=== PATIENT | female | born 1995 | race African-American/Black ===

== ENCOUNTER 2020-05-16 14:41 | Outpatient (REF) | payer OTHER, SELFPAY | END 2020-05-16 14:42 | disposition home or self-care (01) | LOC: HO.HMGCLDS 14:41 | PROVIDERS: PCP Internal Medicine; Visit Provider Internal Medicine | DX: Z20.828 Contact with and (suspected) exposure to other viral communicable diseases (principal) | CPT/HCPCS: C9803; U0003 ==

== ENCOUNTER 2020-05-26 09:36 | Outpatient (REF) | payer OTHER, SELFPAY ==
[2020-05-26 11:08] LABS: MANUAL DIFF FLAG NO
[2020-05-26 11:12] LABS: Basophils Absolute Auto 0.1 X10*3/uL (0.0-0.2); Basophils Percent Auto 0.9 % (0-2); Eosinophils Absolute Auto 0.3 X10*3/uL (0.0-0.4); Eosinophils Percent Auto 4.7 % (0-4); Hematocrit 44.4 % (37-47); Hemoglobin 14.5 g/dl (12.0-16.0); Imm Gran Abs Auto 0.02 X10*3/uL (0.00-0.03); Imm Gran Pct Auto 0.3 % (0.0-0.4); Lymphocytes Absolute Auto 1.2 X10*3/uL (1.2-4.9); Mean Corpuscular HGB Conc 32.7 g/dl (31.0-35.0); Mean Corpuscular Hemoglobin 28.6 pg (27.0-33.0); Mean Corpuscular Volume 87.6 fL (80-98); Mean Platelet Volume 9.9 fL (9.4-12.3); Monocytes Absolute Auto 0.6 X10*3/uL (0.1-1.2); Neutrophils Absolute Auto 4.5 X10*3/uL (2.0-8.3); Neutrophils Percent Auto 67.1 % (45-73); Platelet Count 319 X10*3/uL (160-400); Red Blood Count 5.07 X10*6/uL (4.20-5.50); Red Cell Distribution Width 12.4 % (11.0-16.0); White Blood Count 6.8 X10*3/uL (4.8-10.8)
[2020-05-26 11:41] LABS: Alanine Aminotransferase 16 U/L (0-31); Anion Gap 14 (12-20); Aspartate Amino Transferase 12 U/L (5-31); Blood Urea Nitrogen 11 mg/dL (9-16); Calcium 9.3 mg/dL (8.4-10.2); Carbon Dioxide 26 mmol/L (22-29); Chloride 102 mmol/L (96-108); Cholesterol 156 mg/dL; Estimated Glomerular Filt Rate > 60; Glucose Fasting 77 mg/dL (60-99); HDL Cholesterol 54 mg/dL; LDL Cholesterol Calculated 83 mg/dl; Potassium 4.1 mmol/l (3.3-5.1); Sodium 138 mmol/L (135-145); Triglycerides 95 mg/dL
[2020-05-26 11:54] LABS: TSH reflex Free T4 0.76 mIU/mL (0.32-4.0)
== END 2020-05-26 09:37 | disposition home or self-care (01) ==
LOC: HO.HMGCLDS 09:36
PROVIDERS: PCP Internal Medicine; Visit Provider Internal Medicine
DX: Z00.00 Encounter for general adult medical examination without abnormal findings (principal); R42 Dizziness and giddiness; I10 Essential (primary) hypertension
CPT/HCPCS: 36415; 80048; 80061; 84443; 84450; 84460; 85025

== ENCOUNTER → 2020-12-19 10:58 | Outpatient (BNVA) | payer OTHER, SELFPAY | PROVIDERS: PCP Internal Medicine; Referring Provider Internal Medicine; Visit Provider Advanced Practice Midwife ==

== ENCOUNTER → 2021-01-16 09:59 | Outpatient (BNVA) | payer OTHER, SELFPAY | PROVIDERS: Visit Provider Advanced Practice Midwife | DX: Z30.432 Encounter for removal of intrauterine contraceptive device (principal); Z30.013 Encounter for initial prescription of injectable contraceptive | CPT/HCPCS: 11982; 96372 ==

== ENCOUNTER → 2021-02-13 10:27 | Outpatient (BNVA) | payer OTHER, SELFPAY | PROVIDERS: Visit Provider Advanced Practice Midwife ==

== ENCOUNTER → 2021-04-10 11:02 | Outpatient (BNVA) | payer OTHER, SELFPAY | PROVIDERS: PCP Internal Medicine; Visit Provider Advanced Practice Midwife | DX: Z30.42 Encounter for surveillance of injectable contraceptive (principal) | CPT/HCPCS: 96372; 99211 ==

== ENCOUNTER 2021-06-12 10:13 | Outpatient (REF) | payer OTHER, SELFPAY ==
[2021-06-12 12:32] LABS: Alanine Aminotransferase 17 U/L (0-31); Anion Gap 12 (12-20); Aspartate Amino Transferase 10 U/L (5-31); Blood Urea Nitrogen 10 mg/dL (9-16); Calcium 9.7 mg/dL (8.4-10.2); Carbon Dioxide 24 mmol/L (22-29); Chloride 106 mmol/L (96-108); Cholesterol 160 mg/dL; Estimated Glomerular Filt Rate > 60; Glucose Fasting 91 mg/dL (60-99); HDL Cholesterol 57 mg/dL; LDL Cholesterol Calculated 90 mg/dl; Sodium 138 mmol/L (135-145); Triglycerides 67 mg/dL
[2021-06-12 12:37] LABS: Vitamin D 25-OH Total 44.2 ng/mL (>30)
== END 2021-06-12 10:14 | disposition home or self-care (01) ==
LOC: HO.HMGCLDS 10:13
PROVIDERS: PCP Internal Medicine; Visit Provider Internal Medicine
DX: Z30.42 Encounter for surveillance of injectable contraceptive (principal); J45.20 Mild intermittent asthma, uncomplicated
CPT/HCPCS: 36415; 80048; 80061; 82306; 84450; 84460

== ENCOUNTER → 2021-07-10 11:43 | Outpatient (BNVA) | payer OTHER, SELFPAY | PROVIDERS: PCP Internal Medicine; Visit Provider Advanced Practice Midwife ==

== ENCOUNTER → 2021-11-06 09:50 | Outpatient (BNVA) | payer OTHER, SELFPAY | PROVIDERS: PCP Internal Medicine; Visit Provider Advanced Practice Midwife | DX: Z30.42 Encounter for surveillance of injectable contraceptive (principal); Z30.09 Encounter for other general counseling and advice on contraception | CPT/HCPCS: 96372; 99212 ==

== ENCOUNTER → 2022-01-29 11:03 | Outpatient (BNVA) | payer OTHER, SELFPAY | PROVIDERS: PCP Internal Medicine; Visit Provider Advanced Practice Midwife | DX: Z30.42 Encounter for surveillance of injectable contraceptive (principal) | CPT/HCPCS: 96372; 99211 ==

== ENCOUNTER 2022-02-19 10:56 | Outpatient (REF) | payer OTHER, SELFPAY | END 2022-02-19 10:57 | disposition home or self-care (01) | LOC: HO.LNP 10:56 | PROVIDERS: Visit Provider Advanced Practice Midwife | DX: Z01.419 Encounter for gynecological examination (general) (routine) without abnormal findings (principal) | CPT/HCPCS: 88142 ==

== ENCOUNTER 2022-04-23 10:36 | Outpatient (REF) | payer OTHER, SELFPAY ==
[2022-04-23 14:06] LABS: CT PCR NOT DETECTED (Not Detect.); NG PCR NOT DETECTED (Not Detect.)
== END 2022-04-23 10:37 | disposition home or self-care (01) ==
LOC: HO.LAB 10:36
PROVIDERS: PCP Internal Medicine; Visit Provider Advanced Practice Midwife
DX: Z11.3 Encounter for screening for infections with a predominantly sexual mode of transmission (principal); Z20.2 Contact with and (suspected) exposure to infections with a predominantly sexual mode of transmission
CPT/HCPCS: 87491; 87591; 96372; 99211

== ENCOUNTER → 2022-07-09 11:03 | Outpatient (BNVA) | payer OTHER, SELFPAY | PROVIDERS: PCP Internal Medicine; Visit Provider Advanced Practice Midwife | DX: Z30.42 Encounter for surveillance of injectable contraceptive (principal) | CPT/HCPCS: 96372; 99211 ==

== ENCOUNTER 2022-08-20 09:21 | Outpatient (REF) | payer OTHER, SELFPAY ==
[2022-08-20 12:56] LABS: Anion Gap 16 (12-20); Blood Urea Nitrogen 11 mg/dL (9-16); Calcium 9.3 mg/dL (8.4-10.2); Carbon Dioxide 23 mmol/L (22-29); Chloride 105 mmol/L (96-108); Cholesterol 165 mg/dL; Estimated Glomerular Filt Rate > 60; Glucose Fasting 86 mg/dL (60-99); HDL Cholesterol 58 mg/dL; LDL Cholesterol Calculated 93 mg/dl; Sodium 140 mmol/L (135-145); Triglycerides 74 mg/dL
[2022-08-20 13:01] LABS: Vitamin D 25-OH Total 27.9 ng/mL (>30)
== END 2022-08-20 09:22 | disposition home or self-care (01) ==
LOC: HO.HMGCLDS 09:21
PROVIDERS: PCP Internal Medicine; Visit Provider Internal Medicine
DX: Z00.01 Encounter for general adult medical examination with abnormal findings (principal); J45.20 Mild intermittent asthma, uncomplicated; R12 Heartburn; Z91.09 Other allergy status, other than to drugs and biological substances
CPT/HCPCS: 36415; 80048; 80061; 82306

== ENCOUNTER → 2022-10-01 10:09 | Outpatient (BNVA) | payer OTHER, SELFPAY | PROVIDERS: PCP Internal Medicine; Visit Provider Advanced Practice Midwife | DX: Z30.42 Encounter for surveillance of injectable contraceptive (principal) | CPT/HCPCS: 96372; 99211 ==

== ENCOUNTER 2022-12-24 11:21 | Outpatient (AMB) | payer OTHER, SELFPAY ==
[2022-12-24 11:36] VITALS: BMI 23.9
--- NOTE | 2022-12-24 11:36 | AM.OFFVISNUR ---
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 No c/o. Pt tolerated well. Office Procedures Depo Questionnaire If YES to any of the following questions, please consult a provider. Date of last injection: 10/01/22 Date of last gynecology exam: 02/19/22 Menstrual pattern since last injection has been: Not Applicable Irregular bleeding?: No Breast lumps or other breast changes?: No Changes in weight or appetite?: No Depression or changes in mood?: No Abnormal hair growth or loss?: No Skin problems (rash, acne, discoloration)?: No Pain at the injection site?: No Headaches?: No Nervousness?: No Abdominal pain or cramping?: No Dizziness or nausea?: No Fatigue or weakness?: No Decrease in sexual drive?: No Chest pain or shortness of breath?: No Swelling in arms or legs?: No Form completed by?: Emelia Schwartz RN Office Meds Depo-Provera Performing Provider: Lidia Brice CNM Administered by: Emelia Schwartz on 12/24/22 11:38 Dose Route Admin Location Lot Number Expiration Date NDC Envelope Stuffer 150 mg IM left deltoid [id number] 03/02/25 66656-013-41 [facility] Coding Level of Care Code Established Pt Est Pt Level 1 (37828) Patient Type Established History Problem Focused Medical Decision Making Straight Forward Diagnoses Time Spent (min) 10 Assessment & Plan Assessment & Plan Orders: Orders AMB Medroxyprogesterone Injection Patient Supplied Today Z30.42 - Encounter for surveillance of injectable contraceptive
== END 2022-12-24 12:46 | disposition home or self-care (01) ==
LOC: HO.HWS 11:21
PROVIDERS: PCP Internal Medicine; Visit Provider Advanced Practice Midwife
DX: Z30.42 Encounter for surveillance of injectable contraceptive (principal)

== ENCOUNTER → 2022-12-24 11:21 | Outpatient (BNVA) | payer OTHER, SELFPAY | PROVIDERS: PCP Internal Medicine; Visit Provider Advanced Practice Midwife | DX: Z30.42 Encounter for surveillance of injectable contraceptive (principal) | CPT/HCPCS: 96372; 99211; J1050 ==

== ENCOUNTER 2023-03-18 12:46 | Outpatient (AMB) | payer OTHER, SELFPAY ==
[2023-03-18 13:05] VITALS: BMI 25.8
--- NOTE | 2023-03-18 13:05 | AM.OFFVISNUR ---
Intake Vital Signs 03/18/23 13:05 Height 5 ft 6 in Weight 72.575 kg BMI 25.8 Intake Visit Reasons: DEPO Allergies No Known Allergies Allergy (Verified 08/20/22 08:48) Nursing Note Dipti is here today for her Depo-Provera shot. She denies any problems or concerns. Follow up for AG 04/23/23 and Depo-Provera in 12 weeks. Office Procedures Depo Questionnaire If YES to any of the following questions, please consult a provider. Date of last injection: 12/24/22 Date of last gynecology exam: 02/19/22 Menstrual pattern since last injection has been: Not Applicable Irregular bleeding?: Not Applicable Breast lumps or other breast changes?: No Changes in weight or appetite?: No Depression or changes in mood?: No Abnormal hair growth or loss?: No Skin problems (rash, acne, discoloration)?: No Pain at the injection site?: No Headaches?: No Nervousness?: No Abdominal pain or cramping?: No Dizziness or nausea?: No Fatigue or weakness?: No Decrease in sexual drive?: Not Applicable Chest pain or shortness of breath?: No Swelling in arms or legs?: No Form completed by?: Harinder becker LPN Depmindi Questionnaire If YES to any of the following questions, please consult a provider. Date of last injection: 12/24/22 Date of last gynecology exam: 02/19/22 Menstrual pattern since last injection has been: Not Applicable Irregular bleeding?: No Breast lumps or other breast changes?: No Changes in weight or appetite?: No Depression or changes in mood?: No Abnormal hair growth or loss?: No Skin problems (rash, acne, discoloration)?: No Pain at the injection site?: No Headaches?: No Nervousness?: No Abdominal pain or cramping?: No Dizziness or nausea?: No Fatigue or weakness?: No Decrease in sexual drive?: No Chest pain or shortness of breath?: No Swelling in arms or legs?: No Any other problems or concerns?: none voiced Form completed by?: Harinder Becker LPN Office Meds Depo-Provera 150 mg/mL intramuscular syringe Performing Provider: Lidia Brice CNM Performing Location: [facility] Administered by: Alejandra Becker LPN on 03/18/23 13:13 Dose Route Admin Location Dispensed Lot Number Expiration Date NDC [facility] Of Pediatric Urology 150 mg IM Left deltoid 1 mL [id number] 03/02/25 01450-865-70 [facility] Coding Level of Care Code Established Pt Est Pt Level 1 (24527) Patient Type Established History Problem Focused Exam Problem Focused Medical Decision Making Straight Forward Time Spent (min) 20 Assessment & Plan Assessment & Plan Orders: Orders AMB Medroxyprogesterone Injection Patient Supplied Today Z30.42 - Encounter for surveillance of injectable contraceptive
== END 2023-03-18 13:10 | disposition home or self-care (01) ==
LOC: HO.HWS 12:46
PROVIDERS: PCP Internal Medicine; Visit Provider Advanced Practice Midwife
DX: Z30.42 Encounter for surveillance of injectable contraceptive (principal)

== ENCOUNTER → 2023-03-18 12:46 | Outpatient (BNVA) | payer OTHER, SELFPAY | PROVIDERS: PCP Internal Medicine; Visit Provider Advanced Practice Midwife | DX: Z30.42 Encounter for surveillance of injectable contraceptive (principal) | CPT/HCPCS: 96372; 99211; J1050 ==

== ENCOUNTER 2023-06-17 11:05 | Outpatient (AMB) | payer OTHER, SELFPAY ==
[2023-06-17 11:16] VITALS: BMI 27.6
--- NOTE | 2023-06-17 11:16 | AM.OFFVISNUR ---
Intake Vital Signs 06/17/23 11:16 Height 5 ft 6 in Weight 77.564 kg BMI 27.6 Intake Visit Reasons: DEPO Allergies No Known Allergies Allergy (Verified 08/20/22 08:48) Nursing Note Dipti is here today with her caregiver. Pt has no complaints. Follow up in 12 wks for next inj, and pt is scheduled in October for her AG. Office Procedures Depo Questionnaire If YES to any of the following questions, please consult a provider. Date of last injection: 03/18/23 Date of last gynecology exam: 02/19/22 Menstrual pattern since last injection has been: Not Applicable Irregular bleeding?: No Breast lumps or other breast changes?: No Changes in weight or appetite?: No Depression or changes in mood?: No Abnormal hair growth or loss?: No Skin problems (rash, acne, discoloration)?: No Pain at the injection site?: No Headaches?: No Nervousness?: No Abdominal pain or cramping?: No Dizziness or nausea?: No Fatigue or weakness?: No Decrease in sexual drive?: No Chest pain or shortness of breath?: No Swelling in arms or legs?: No Form completed by?: Harinder Gregorio LPN Office Meds Depo-Provera 150 mg/mL intramuscular syringe Performing Provider: Lidia Brice CNM Performing Location: [facility] Documented (not given) by: Alejandra Gregorio LPN on 06/17/23 11:18 Dose Route Admin Location Dispensed Lot Number Expiration Date [facility] 150 mg IM mL Coding Level of Care Code Established Pt Est Pt Level 1 (80879) Patient Type Established History Problem Focused Exam Problem Focused Medical Decision Making Straight Forward Time Spent (min) 15 Assessment & Plan Assessment & Plan Orders: Orders AMB Medroxyprogesterone Injection Patient Supplied Today Z30.42 - Encounter for surveillance of injectable contraceptive Medications: New Depo-Provera (medroxyprogesterone) 150 mg IM ONCE 1 mL 0RF NS Z30.42 - Encounter for surveillance of injectable contraceptive
== END 2023-06-17 11:16 | disposition home or self-care (01) ==
LOC: HO.HWS 11:05
PROVIDERS: PCP Internal Medicine; Visit Provider Advanced Practice Midwife
DX: Z30.42 Encounter for surveillance of injectable contraceptive (principal)

== ENCOUNTER → 2023-06-17 11:05 | Outpatient (BNVA) | payer OTHER, SELFPAY | PROVIDERS: PCP Internal Medicine; Visit Provider Advanced Practice Midwife | DX: Z30.42 Encounter for surveillance of injectable contraceptive (principal) | CPT/HCPCS: 96372; 99211 ==

== ENCOUNTER 2023-08-29 10:20 | Outpatient (AMB) | payer OTHER, SELFPAY ==
--- NOTE | 2023-08-29 10:23 | A.OFFVIS_ITS ---
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 Present today with her housekeeper child care Neema whom she lives with. Doing well with no concerns. She wants a refill on her Depo and does not want her menses. She had previously tried the oral contraceptive pill and was unhappy because she did have her sign with the pill. She tries to eat healthy, lacks calcium, and stays active with some exercise. She has never been sexually active and has no desire to. She reports she has a boyfriend and has allowed him to kiss her hand only. She denies vaginal itching and irritation. Denies family history of breast, ovarian or colon cancer. Last pap smear, negative. She denies any contraindications to control such as: migraines with aura, history of DVT or pulmonary emboli, high blood pressure, liver disease, thrombolic disorders, Lupus, +LIN, breast cancer, or smoking. [facility] Medical History History of seizure disorder On depo medroxyprogesterone acetate for contraception Cognitive developmental delay Heartburn Environmental allergies Mild intermittent asthma in adult without complication Surgical History No pertinent past surgical history Family History Father No problems noted. Mother Diabetes mellitus HTN (hypertension) Substance use disorder Mental health disorder Maternal Aunt Substance use disorder Sister No problems noted. Maternal Grandmother Substance use disorder Social History Housing: House Housing Other:: Private home Alcohol intake: never Patient Tobacco Use Status: Never used Tobacco e-Cigarette/Vaping Use: Never Used service: No Current occupational status: employed Cognitive needs: No Hearing needs: No Vision needs: Yes Female Reproductive History Menstrual control method: progesterone injection (Depo 06/17/23) Total pregnancies: 0 Date of last pap smear: 02/19/22 (neg) Review of Systems Const All systems reviewed & are unremarkable except as noted in HPI and below Reports as per HPI Eyes Reports no additional complaints ENT Reports no additional complaints Card Reports no additional complaints Resp Reports no additional complaints GI Reports as per HPI and Reports no additional complaints Reports as per HPI Musc Reports no additional complaints Skin/Breast Reports as per HPI Neuro Reports no additional complaints Psych Reports no additional complaints Endo Reports no additional complaints Moncho/Lymph Reports no additional complaints Aller/Immun Reports no additional complaints Physical Exam Vital Signs: Last Vital Signs BP 136/70 08/29/23 10:24 BMI result Body Mass Index 27.3 Const General: cooperative, healthy appearing, no acute distress, well developed and alert Orientation/consciousness: patient oriented x3 HEENT Head: Yes normal to inspection Eyes General: appearance normal, both eyes and all related structures Neck Neck: Yes normal visual inspection Thyroid: Thyroid normal Chest Chest palpation & inspection: normal inspection of the chest and other (no puckering, dimpling, peau de orange, retraction, discharge, masses) Breast/axilla inspection: normal inspection of the breasts Breast/axilla palpation: normal palpation of the breasts Resp Effort & Inspection: normal respiratory effort GI Inspection: Yes normal to inspection Palpation (GI): Soft to palpation Rectal Exam - Female: deferred Other: Very tense with exam and difficult cooperating despite support from Neema and staff, and coaching to relax General: Yes bladder normal to palpation External Female Exam: normal external appearance and normal appearance of the urethra Speculum Exam - Vagina: normal appearance of the vagina, normal palpation and normal vaginal discharge Speculum Exam - Cervix: normal appearance of the cervix and normal palpation Bimanual exam- vagina & uterus: normal bimanual exam, normal palpation, uterine size normal, bladder normal to palpation, normal palpation and non-tender Bimanual Exam- Adnexa, other: no masses Skin General skin exam: no rashes or lesions noted Rashes: no rashes Neuro General: patient oriented x3 Cognition (Neuro): normal cognition Extrem General: Yes normal to inspection Psych Attitude: cooperative Thought process: Normal thought process present Assessment & Plan Assessment & Plan (1) Surveillance for Depo-Provera contraception: Code(s): Z30.42 - Encounter for surveillance of injectable contraceptive (2) Encounter for well woman exam with routine gynecological exam: Code(s): Z01.419 - Encounter for gynecological examination (general) (routine) without abnormal findings Plan Discussed: Current recommendations for pap smears per ASCCP guidelines. Breast awareness and periodic breast exams. Maintain a healthy lifestyle including a well balanced diet and routine exercise. Discussed the risk of Depo-Provera including bone density decreased, advised it is reversible but not to 100%. I do recommend her starting calcium and vitamin- D, and to do weight-bearing exercises regularly. She is unsure of what type of calcium supplements she wants, her and feel as will investigate what products are out there and request a prescription either from her primary care or for myself when she returns to the office for her Depo. control hormone use warnings: go to ER if and loss of vision, blindness, severe headache, chest pain or difficulty breathing, severe abdominal pain, or any pain or swelling in an extremity. Patient verbalizes understanding and agrees to the plan of care. She was given opportunity to ask questions and all questions were answered to the best of my ability. RTO in one year for annual client analyst examination. This note is constructed using voice recognition software. While every effort has been made to ensure accuracy, storage garage manager errors may have been included. Orders: Orders Pap Smear Today Z01.419 - Encounter for gynecological examination (general) (routine) without abnormal findings Coding Level of Care Code Est Pt Prev Care 18-39y(95828) Diagnoses Surveillance for Depo-Provera contraception Z30.42 Encounter for well woman exam with routine gynecological exam Z01.419
[2023-08-29 10:24] VITALS: BP 136/70; BMI 27.3
== END 2023-08-29 11:10 | disposition home or self-care (01) ==
LOC: HO.HWS 10:21
PROVIDERS: PCP Internal Medicine; Visit Provider Advanced Practice Midwife
DX: Z30.42 Encounter for surveillance of injectable contraceptive (principal); Z01.419 Encounter for gynecological examination (general) (routine) without abnormal findings
CPT/HCPCS: 99395

== ENCOUNTER 2023-08-29 10:20 | Outpatient (REF) | payer OTHER, SELFPAY ==
[2023-09-04 03:29] LABS: HPV mRNA E6/E7 rflx Not Detected (Not Detected)
== END 2023-08-29 10:21 | disposition home or self-care (01) ==
LOC: HO.LNP 10:20
PROVIDERS: PCP Internal Medicine; Visit Provider Advanced Practice Midwife
DX: Z01.419 Encounter for gynecological examination (general) (routine) without abnormal findings (principal); Z11.51 Encounter for screening for human papillomavirus (HPV)
CPT/HCPCS: 87624; 88142; 99395

== ENCOUNTER 2023-09-06 08:45 | Outpatient (AMB) | payer OTHER, SELFPAY ==
--- NOTE | 2023-09-06 08:58 | A.OFFPC_ITS ---
Vital Signs 09/06/23 09:03 Height 5 ft 6 in Weight 169 lb BMI 27.3 BP 122/68 Blood Pressure Location Rt brachial Position Sitting Pulse 95 Pulse Source Pulse Oximeter Pulse Oximetry (%) 99 Oxygen Delivery Method Room Air Intake Visit Reasons: PE Intake Note: Pt is here today for her PE: Papsmear 08/30/23 Allergies No Known Allergies Allergy (Verified 09/06/23 09:29) Medication List - Last Reconciled 09/06/23 by Mima Morley MD acetaminophen 325 mg PO QID PRN calcium carbonate (Tums) 200 mg PO DAILY PRN cetirizine 10 mg PO DAILY cholecalciferol (vitamin D3) 50 mcg PO DAILY famotidine 40 mg PO DAILY PRN medroxyprogesterone 150 mg IM [id number] 3 months Ventolin HFA 90 mcg/actuation (albuterol sulfate) 2 puffs inhalation Q6H PRN NS Tobacco use date assessed: 09/06/23 Dental Screening Dental Screen Date: 09/06/23 Did you have a dental visit in the last 12 months?: Yes Did you have a dental problem in the last 6 months where you did not have access to dental care?: No Was dental information given to patient?: Patient has dentist HPI PE HPI Details 28-year-old lady here today for her phys ical exam. She has mild intermittent asthma, rarely needing to use her Ventolin inhaler. She is up-to-date with her cervical cancer screening, had [facility] just [facility] a month ago [facility], currently on Depo-Provera for control. She has seasonal and environmental allergies takes cetirizine as needed . Currently up-to-date with her COVID vaccination and flu shot as well as Tdap. Complains of recurrent heartburn symptoms, has been taking famotidine but switched to ranitidine which she states has been helping better. Episodes usually would occur after coming back from we can spent with her father. 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 Denies any nausea, no vomiting no change in bowel habits or blood in stool. Complains of itchy ears, bilateral PFSH Medical History (Updated 09/06/23 @ 09:42 by Mima Morley MD) History of vitamin D deficiency History of seizure disorder On depo medroxyprogesterone acetate for contraception Cognitive developmental delay Heartburn Environmental allergies Mild intermittent asthma in adult without complication Surgical History No pertinent past surgical history Family History Father No problems noted. Mother Diabetes mellitus HTN (hypertension) Substance use disorder Mental health disorder Maternal Aunt Substance use disorder Sister No problems noted. Maternal Grandmother Substance use disorder Social History Housing: House Housing Other:: Private home Alcohol intake: never Patient Tobacco Use Status: Never used Tobacco e-Cigarette/Vaping Use: Never Used service: No Current occupational status: employed Cognitive needs: No Hearing needs: No Vision needs: Yes Female Reproductive History Menstrual control method: progesterone injection Date of last pap smear: 08/30/23 Other: Sees [facility] for her routine Pap and pelvic exam and contraception manage/ Questionnaire PHQ-9 Over the last 2 weeks, how often have you been bothered by any of the following problems? 1. Little interest or pleasure in doing things: not at all 2. Feeling down, depressed, or hopeless: not at all 3. Trouble falling or staying asleep, or sleeping too much: not at all 4. Feeling tired or having little energy: not at all 5. Poor appetite or overeating: not at all 6. Feeling bad about yourself - or that you are a failure or have let yourself or your family down: not at all 7. Trouble concentrating on things, such as reading the newspaper or watching television: not at all 8. Moving or speaking so slowly that other people could have noticed. Or the opposite - being so fidgety or restless that you have been moving around a lot more than usual: not at all 9. Thoughts that you would be better off or of hurting yourself in some way: not at all Total score: 0 Depression Screening Interpretation: Negative Depression Screening Done: Yes 56513 - PHQ-9 Billing: Yes Source: Developed by Drs. Peewee L. MitchellRebeca back Kurt Kroenke and colleagues, with an educational yo from [employer]. Thrive Questionnaire Date Thrive assessed: 09/06/23 I am a: Patient What is your living situation today?: I have a steady place to live Within the past 12 months, did the food you bought not last and you didn't have the money to get more?: Never true Within the past 12 months, did you worry whether your food would run out before you got money to buy more?: Never true Do you have trouble paying for medicines?: No Do you have trouble getting transportation to medical appointments?: No Do you have trouble paying your heating and electricity bill?: No Do you have trouble taking care of your child, family member or friend?: No Do you have trouble with day-to-day activities such as bathing, preparing meals, shopping, managing finances, etc.?: Yes (She lives with a caregiver who has been helping her) Are you currently unemployed and looking for a job?: Yes Are you interested in more education?: No THRIVE Score: 0 AUDIT C Alcohol Use Questionnaire (AUDIT-C) 1. How often do you have a drink containing alcohol?: Never Total Score: 0 PARKER-7 AMB Questionnaire PARKER-7 Date PARKER - 7 assessed: 09/06/23 Feeling nervous, anxious, or on edge: 0 = Not at all Not being able to stop or control worryin = Not at all Worrying too much about different things: 0 = Not at all Trouble relaxin = Not at all Being so restless that it is hard to sit still: 0 = Not at all Becoming easily annoyed or irritable: 0 = Not at all Feeling afraid as if something awful might happen: 0 = Not at all Total PARKER-7 score (0-4 normal; 5-9 mild; 10-14 moderate; 15-21 severe): 0 Source: Developed by Drs. Peewee Medrano, Armaan Reddy and colleagues, with an educational yo from [employer]. PARKER-7 Assessment Billing PARKER-7 Assessment Tool: PARKER-7 Assessment 95534 Review of Systems Const All systems reviewed & are unremarkable except as noted in HPI and below Reports as per HPI Eyes Reports no additional complaints ENT Reports no additional complaints and Reports Normal hearing present Card Reports no additional complaints Resp Reports no additional complaints GI Reports as per HPI and Reports no additional complaints Reports as per HPI Musc Reports no additional complaints Skin/Breast Reports as per HPI Neuro Reports no additional complaints, Reports Normal hearing present and Denies Sensory deficit (Neuro) Psych Reports no additional complaints Endo Reports no additional complaints Moncho/Lymph Reports no additional complaints Aller/Immun Reports no additional complaints Physical exam (Primary Care) Vital Signs: Last Vital Signs Pulse 95 09/06/23 09:03 BP 122/68 09/06/23 09:03 Pulse Ox 99 09/06/23 09:03 Oxygen Delivery Method Room Air 09/06/23 09:03 BMI result Body Mass Index 27.3 Tobacco/Smoking Status: Tobacco use Status Tobacco use date assessed 09/06/23 09/06/23 09:01 Patient Tobacco Use Status Never used Tobacco 09/06/23 08:59 e-Cigarette/Vaping Use Never Used 09/06/23 08:59 PHQ-9: PHQ-9 Score PHQ-9: Total score 0 09/06/23 10:05 Depression Screening Interpretation: Negative Thrive Assessment: Date of Thrive Assessment Date Thrive assessed 09/06/23 09/06/23 10:05 Const General: cooperative, no acute distress and alert Orientation/consciousness: patient oriented x3 HENMT Head: Yes normal to inspection, Yes normocephalic and Yes atraumatic Ears: Abnormal EAC present excessive cerumen bilateral General nose exam: Normal external nose present Face and sinus: Yes face symmetric Mouth: Normal oral and palatal mucosa present, oropharynx normal and moist mucous membranes Eyes Conjunctivae: conjunctivae normal Sclerae: sclerae normal Pupils: Equal, round and reactive pupils present EOM: EOMs intact bilaterally Neck Neck: Yes full ROM and Yes no lymphadenopathy Thyroid: Thyroid normal Chest Chest palpation & inspection: normal inspection of the chest Breast/axilla palpation: normal palpation of the breasts Resp Effort & Inspection: normal respiratory effort and able to speak in complete sentences Auscultation: clear to auscultation bilaterally Cardio Jugular venous distension: no JVD Rate: regular rate Rhythm: regular rhythm Heart sounds: S1 normal heart sound present and S2 normal heart sound present GI Inspection: Yes normal to inspection Palpation (GI): Soft to palpation, nontender, no guarding and no masses Auscultation: normal bowel sounds General: Yes no CVA tenderness Back/Spine/Pelvis Back: no CVA tenderness and No back tenderness Skin General skin exam: no rashes or lesions noted Neuro General: patient oriented x3, gait normal, moves all extremities, no focal motor deficits and CN's II-XI intact bilaterally Cranial nerves: Yes Equal, round and reactive pupils present and Yes Normal hearing present Cognition (Neuro): normal cognition Gait exam (Neuro): Normal gait present Motor exam (neuro): 5/5 motor strength present throughout Sensory Exam: No Sensory deficit (Neuro) Extrem General: Yes normal to inspection, Yes full ROM, Yes no pedal edema and Yes normal gait Psych Appearance: grossly normal and well kempt Mental Status: mental status grossly normal Speech and movement: Normal speech and movement present Affect: normal affect Attitude: cooperative Assessment and Plan Assessment & Plan (1) Annual visit for general adult medical examination with abnormal findings: Code(s): Z00.01 - Encounter for general adult medical examination with abnormal findings Plan: Will check appropriate labs. Recommended dental visit every 6 months and regular eye exams, at least every 2 years. Take adequate calcium in diet and vitamin-D 3 at 2000 IU per cap once a day, in addition to weight-bearing exercises to help maintain good muscle tone and weight control. Instructed to do self-breast exam, and recommended to get yearly mammogram, starting at age 40. Goes to [facility] for her routine Pap and pelvic exam. Up-to-date with all her vaccines (2) Mild intermittent asthma in adult without complication: Code(s): J45.20 - Mild intermittent asthma, uncomplicated Plan: Has Ventolin inhaler which she rarely needs to use (3) Environmental allergies: Code(s): Z91.09 - Other allergy status, other than to drugs and biological substances Plan: Currently on cetirizine 10 mg daily (4) Heartburn: Code(s): R12 - Heartburn Plan: Famotidine discontinued, prescription sent for omeprazole 20 mg per capsule to take once a day 1 hour before eating. Avoidance of triggers for heartburn which includes anything acidic like tomato based foods, caffeine, fried greasy foods. Upper GI series order (5) On depo medroxyprogesterone acetate for contraception: Code(s): Z30.42 - Encounter for surveillance of injectable contraceptive Plan: Followed by [facility] (6) History of vitamin D deficiency: Code(s): Z86.39 - Personal history of other endocrine, nutritional and metabolic disease Plan: Will check vitamin-D (7) Epigastric pain: Code(s): R10.13 - Epigastric pain Plan: Upper GI series ordered. Famotidine discontinued, prescription sent for omeprazole 20 mg per capsule to take once a day 1 hour before eating. Avoidance of triggers for heartburn which includes anything acidic like tomato based foods, caffeine, fried greasy foods. (8) Impacted cerumen of both ears: Code(s): H61.23 - Impacted cerumen, bilateral Plan: Successful Manual extraction of cerumen bilaterally done, avoid using Q-tips to clean ears Orders: Orders Alanine Aminotransferase 09/06/23 J45.20 - Mild intermittent asthma, uncomplicated, R12 - Heartburn, Z00.01 - Encounter for general adult medical examination with abnormal findings, Z30.42 - Encounter for surveillance of injectable contraceptive, Z86.39 - Personal history of other endocrine, nutritional and metabolic disease, Z91.09 - Other allergy status, other than to drugs and biological substances Basic Metabolic Panel Fasting 09/06/23 J45.20 - Mild intermittent asthma, uncomplicated, R12 - Heartburn, Z00.01 - Encounter for general adult medical examination with abnormal findings, Z30.42 - Encounter for surveillance of injectable contraceptive, Z86.39 - Personal history of other endocrine, nutriti onal and metabolic disease, Z91.09 - Other allergy status, other than to drugs and biological substances Complete Blood Count Auto Diff 09/06/23 J45.20 - Mild intermittent asthma, uncomplicated, R12 - Heartburn, Z00.01 - Encounter for general adult medical examination with abnormal findings, Z30.42 - Encounter for surveillance of injectable contraceptive, Z86.39 - Personal history of other endocrine, nutritional and metabolic disease, Z91.09 - Other allergy status, other than to drugs and biological substances Lipid Panel 09/06/23 J45.20 - Mild intermittent asthma, uncomplicated, R12 - Heartburn, Z00.01 - Encounter for general adult medical examination with abnormal findings, Z30.42 - Encounter for surveillance of injectable contracepti ve, Z86.39 - Personal history of other endocrine, nutritional and metabolic disease, Z91.09 - Other allergy status, other than to drugs and biological substances Aspartate Amino Transferase 09/06/23 J45.20 - Mild intermittent asthma, uncomplicated, R12 - Heartburn, Z00.01 - Encounter for general adult medical examination with abnormal findings, Z30.42 - Encounter for surveillance of injectable contraceptive, Z86.39 - Personal history of other endocrine, nutritional and metabolic disease, Z91.09 - Other allergy status, other than to drugs and biological substances Vitamin D 25-OH Total 09/06/23 J45.20 - Mild intermittent asthma, uncomplicated, R12 - Heartburn, Z00.01 - Encounter for general adult medical examination with abnormal findings, Z30.42 - Encounter for surveillance of injectable contraceptive, Z86.39 - Personal history of other endocrine, nutritional and metabolic disease, Z91.09 - Other allergy status, other than to drugs and biological substances FL upper GI series 09/06/23 R10.13 - Epigastric pain, R12 - Heartburn Medications: New omeprazole 20 mg PO DAILY 30 caps 1RF Discontinued famotidine Discontinued Reason: Doctor's Order 40 mg PO DAILY PRN 90 tabs 0RF heartburn R12 - Heartburn Coding Level of Care Code Est Pt Prev Care 18-39y(56190) Diagnoses Annual visit for general adult medical examination with abnormal findings Z00.01 Mild intermittent asthma in adult without complication J45.20 Environmental allergies Z91.09 Heartburn R12 On depo medroxyprogesterone acetate for contraception Z30.42 History of vitamin D deficiency Z86.39 Epigastric pain R10.13 Impacted cerumen of both ears H61.23 Additional Codes PARKER-7 Assessment Billing - PARKER-7 Assessment Tool: PARKER-7 Assessment 98604 ([id number])
[2023-09-06 09:03] VITALS: BP 122/68; PULSE 95; O2SAT 99; BMI 27.3
== END 2023-09-06 10:01 | disposition home or self-care (01) ==
PROVIDERS: PCP Internal Medicine; Visit Provider Internal Medicine
DX: Z00.01 Encounter for general adult medical examination with abnormal findings (principal); J45.20 Mild intermittent asthma, uncomplicated; Z91.09 Other allergy status, other than to drugs and biological substances; R12 Heartburn; Z86.39 Personal history of other endocrine, nutritional and metabolic disease; R10.13 Epigastric pain; H61.23 Impacted cerumen, bilateral
CPT/HCPCS: 99213; 99395

== ENCOUNTER 2023-09-06 10:04 | Outpatient (REF) | payer OTHER, SELFPAY ==
[2023-09-06 13:45] LABS: MANUAL DIFF FLAG NO
[2023-09-06 13:55] LABS: Basophils Absolute Auto 0.1 X10*3/uL (0.0-0.2); Eosinophils Absolute Auto 0.3 X10*3/uL (0.0-0.4); Eosinophils Percent Auto 4.2 % (0-4); Hematocrit 45.7 % (37.0-47.0); Hemoglobin 14.9 g/dl (12.0-16.0); Imm Gran Abs Auto 0.02 X10*3/uL (0.00-0.03); Imm Gran Pct Auto 0.3 % (0.0-0.4); Lymphocytes Absolute Auto 1.5 X10*3/uL (1.2-4.9); Lymphocytes Percent Auto 24.1 % (20-40); Mean Corpuscular HGB Conc 32.6 g/dl (31.0-35.0); Mean Corpuscular Hemoglobin 27.9 pg (27.0-33.0); Mean Corpuscular Volume 85.6 fL (80.0-98.0); Mean Platelet Volume 9.2 fL (9.4-12.3); Monocytes Absolute Auto 0.5 X10*3/uL (0.1-1.2); Monocytes Percent Auto 8.8 % (2-11); Neutrophils Absolute Auto 3.7 x10*3/uL (2.0-8.3); Neutrophils Percent Auto 61.6 % (45-73); Platelet Count 347 X10*3/uL (160-400); Red Blood Count 5.34 X10*6/uL (4.20-5.50); Red Cell Distribution Width 12.6 % (11.0-16.0)
[2023-09-06 14:22] LABS: Alanine Aminotransferase 17 U/L (0-31); Anion Gap 14 (12-20); Aspartate Amino Transferase 12 U/L (5-31); Blood Urea Nitrogen 10 mg/dL (9-16); Calcium 9.3 mg/dL (8.4-10.2); Carbon Dioxide 24 mmol/L (22-29); Chloride 107 mmol/L (96-108); Cholesterol 167 mg/dL (<200); Estimated Glomerular Filt Rate > 60; Glucose Fasting 88 mg/dL (60-99); HDL Cholesterol 57 mg/dL (>40); LDL Cholesterol Calculated 93 mg/dL (<100); Sodium 141 mmol/L (135-145); Triglycerides 87 mg/dL (<150)
[2023-09-06 14:26] LABS: Vitamin D 25-OH Total 62.7 ng/mL (>30)
== END 2023-09-06 10:05 | disposition home or self-care (01) ==
LOC: HO.HMGCLDS 10:04
PROVIDERS: PCP Internal Medicine; Visit Provider Internal Medicine
DX: Z00.01 Encounter for general adult medical examination with abnormal findings (principal); R12 Heartburn; J45.20 Mild intermittent asthma, uncomplicated; Z86.39 Personal history of other endocrine, nutritional and metabolic disease; Z91.09 Other allergy status, other than to drugs and biological substances
CPT/HCPCS: 36415; 80048; 80061; 82306; 84450; 84460; 85025

== ENCOUNTER 2023-09-09 11:09 | Outpatient (AMB) | payer OTHER, SELFPAY ==
[2023-09-09 11:28] VITALS: BMI 27.8
--- NOTE | 2023-09-09 11:28 | AM.OFFVISNUR ---
Intake Vital Signs 09/09/23 11:28 Height 5 ft 6 in Weight 78.075 kg BMI 27.8 Intake Visit Reasons: DEPO Allergies No Known Allergies Allergy (Verified 09/06/23 09:29) Nursing Note Dipti is here with her intensive care unit nurse today for her Scheduled DEPO-Provera INJ. No c/o follow up in 12 weeks. Office Procedures Depo Questionnaire If YES to any of the following questions, please consult a provider. Date of last injection: 06/17/23 Date of last gynecology exam: 08/29/23 Menstrual pattern since last injection has been: Not Applicable Irregular bleeding?: No Breast lumps or other breast changes?: No Changes in weight or appetite?: No Depression or changes in mood?: No Abnormal hair growth or loss?: No Skin problems (rash, acne, discoloration)?: No Pain at the injection site?: No Headaches?: No Nervousness?: No Abdominal pain or cramping?: No Dizziness or nausea?: No Fatigue or weakness?: No Decrease in sexual drive?: Not Applicable Chest pain or shortness of breath?: No Swelling in arms or legs?: No Form completed by?: Harinder Gregorio LPN Office Meds Depo-Provera 150 mg/mL intramuscular syringe Performing Provider: Lidia Brice CNM Performing Location: [facility] Administered by: Alejandra Gregorio LPN on 09/09/23 11:28 Dose Route Admin Location Dispensed Lot Number Expiration Date [facility] [employer] 150 mg IM left deltoid 1 mL [id number] 01/31/25 83117-771-86 [employer] Coding Level of Care Code Established Pt Est Pt Level 1 (12236) Patient Type Established History Problem Focused Exam Problem Focused Medical Decision Making Straight Forward Time Spent (min) 20 Assessment & Plan Assessment & Plan Orders: Orders AMB Medroxyprogesterone Injection Patient Supplied Today Z30.42 - Encounter for surveillance of injectable contraceptive Medications: New Depo-Provera (medroxyprogesterone) 150 mg IM ONCE 1 mL 0RF NS Z30.42 - Encounter for surveillance of injectable contraceptive
== END 2023-09-09 11:22 | disposition home or self-care (01) ==
LOC: HO.HWS 11:09
PROVIDERS: PCP Internal Medicine; Visit Provider Advanced Practice Midwife
DX: Z30.42 Encounter for surveillance of injectable contraceptive (principal)

== ENCOUNTER → 2023-09-09 11:09 | Outpatient (BNVA) | payer OTHER, SELFPAY | PROVIDERS: PCP Internal Medicine; Visit Provider Advanced Practice Midwife | DX: Z30.42 Encounter for surveillance of injectable contraceptive (principal) | CPT/HCPCS: 96372; 99211; J1050 ==

== ENCOUNTER 2023-11-06 09:12 | Outpatient (REF) | payer OTHER, SELFPAY ==
--- NOTE | ~2023-11-06 | FL_ITS ---
EXAMINATION: XR FLUOROSCOPY UPPER GI WITH AIR CLINICAL INFORMATION: Reflux COMPARISON: None TECHNIQUE: Fluoroscopic air contrast upper GI examination was performed utilizing standard techniques with thin and thick barium and effervescent granules. Numerous spot images were obtained. FINDINGS: Dual and single contrast images of the esophagus demonstrate normal caliber, contour, and mucosal pattern. No evidence of stricture, mass, or ulcerations identified. Esophageal peristalsis was normal. No evidence of hiatus hernia identified. Gastroesophageal reflux is seen up to the midesophagus. Dual contrast and single contrast images of the stomach demonstrated normal contour and mucosal pattern without evidence of mass, ulceration, or other abnormality. Contrast freely passed into the gastric antrum and duodenal bulb without delay. Single and air-contrast images of the duodenal bulb demonstrate no abnormality. The duodenal sweep has a normal appearance, course, and mucosal fold appearance. The imaged proximal jejunum has a normal fold pattern and caliber. FLUOROSCOPY TIME: 3 minutes 59 seconds Number of Spot Images: 10 Number of Cine: 14 DOSE AREA PRODUCT: 2428 uGy-m2 (microgray-meter squared) FL/FL upper GI w air IMPRESSION: 1. Moderate gastroesophageal reflux. This procedure was performed by Mo Almonte PA-C, and supervised by Dr. Lee
== END 2023-11-06 09:13 | disposition home or self-care (01) ==
LOC: HO.XRAY 09:12
PROVIDERS: PCP Internal Medicine; Visit Provider Internal Medicine
DX: R10.13 Epigastric pain (principal)
CPT/HCPCS: 74246

== ENCOUNTER → 2023-11-06 09:14 | Outpatient (BNV) | payer OTHER, SELFPAY | PROVIDERS: PCP Internal Medicine; Visit Provider Physician Assistant Surgical | DX: K21.9 Gastro-esophageal reflux disease without esophagitis (principal) | CPT/HCPCS: 74246 ==

== ENCOUNTER 2023-11-26 08:48 | Outpatient (AMB) | payer OTHER, SELFPAY ==
[2023-11-26 09:02] VITALS: BMI 28.3
--- NOTE | 2023-11-26 09:02 | AM.OFFVISNUR ---
Intake Vital Signs 11/26/23 09:02 Height 5 ft 6 in Weight 79.492 kg BMI 28.3 Intake Visit Reasons: depo Allergies No Known Allergies Allergy (Verified 09/06/23 09:29) Nursing Note Dipti is here today for her Depo-provera inj. Pt denies any problems or concerns. Depo inj given, pt tolerated well. Follow up in 12 weeks for next inj. Office Procedures Depo Questionnaire If YES to any of the following questions, please consult a provider. Date of last injection: 09/09/23 Date of last gynecology exam: 08/29/23 Menstrual pattern since last injection has been: Not Applicable Irregular bleeding?: No Breast lumps or other breast changes?: No Changes in weight or appetite?: No Depression or changes in mood?: No Abnormal hair growth or loss?: No Skin problems (rash, acne, discoloration)?: No Pain at the injection site?: No Headaches?: No Nervousness?: No Abdominal pain or cramping?: No Dizziness or nausea?: No Fatigue or weakness?: No Decrease in sexual drive?: No Chest pain or shortness of breath?: No Swelling in arms or legs?: No Form completed by?: Harinder Gregorio LPN Office Meds Depo-Provera 150 mg/mL intramuscular syringe Performing Provider: Lidai Brice CNM Performing Location: [facility] [facility] Administered by: Alejandra Gregorio LPN on 11/26/23 09:03 Dose Route Admin Location Dispensed Lot Number Expiration Date [facility] [employer] 150 mg IM left deltoid 1 mL [id number] 04/02/25 97592-715-10 [employer] Coding Level of Care Code Established Pt Est Pt Level 1 (98470) Patient Type Established History Problem Focused Exam Problem Focused Medical Decision Making Straight Forward Time Spent (min) 20 Assessment & Plan Assessment & Plan Orders: Orders AMB Medroxyprogesterone Injection Patient Supplied Today Z30.42 - Encounter for surveillance of injectable contraceptive Medications: New Depo-Provera (medroxyprogesterone) 150 mg IM ONCE 1 mL 0RF NS Z30.42 - Encounter for surveillance of injectable contraceptive
== END 2023-11-26 08:59 | disposition home or self-care (01) ==
LOC: HO.HWS 08:48
PROVIDERS: PCP Internal Medicine; Visit Provider Advanced Practice Midwife
DX: Z30.42 Encounter for surveillance of injectable contraceptive (principal)

== ENCOUNTER → 2023-11-26 08:48 | Outpatient (BNVA) | payer OTHER, SELFPAY | PROVIDERS: PCP Internal Medicine; Visit Provider Advanced Practice Midwife | DX: Z30.42 Encounter for surveillance of injectable contraceptive (principal) | CPT/HCPCS: 96372; 99211; J1050 ==

== ENCOUNTER 2023-12-25 13:16 | Outpatient (AMB) | payer OTHER, SELFPAY ==
[2023-12-25 13:19] VITALS: BP 120/72; PULSE 83; O2SAT 98; BMI 27.9
--- NOTE | 2023-12-25 13:19 | MHC.PC.OV ---
Vital Signs 12/25/23 13:19 Height 5 ft 6 in Weight 173 lb BMI 27.9 BP 120/72 Blood Pressure Location Rt brachial Position Sitting Pulse 83 Pulse Source Pulse Oximeter Pulse Oximetry (%) 98 Oxygen Delivery Method Room Air Intake Visit Reasons: Follow up/GI Intake Note: pt is here for follow up from GI Emergency Medicine Physician Assistant Required: No Accompanied by: Self / Same As Patient Allergies No Known Allergies Allergy (Verified 12/25/23 13:39) Medication List - Last Reconciled 12/25/23 by Mima Morley MD acetaminophen 325 mg PO QID PRN calcium carbonate (Tums) 200 mg PO DAILY PRN cetirizine 10 mg PO DAILY cholecalciferol (vitamin D3) 50 mcg PO DAILY medroxyprogesterone 150 mg IM [id number] 3 months omeprazole 20 mg PO DAILY Ventolin HFA 90 mcg/actuation (albuterol sulfate) 2 puffs inhalation Q6H PRN NS Tobacco use date assessed: 09/06/23 Dental Screening Dental Screen Date: 09/06/23 HPI Follow up/GI HPI Details 28-year-old lady here today for follow-up on results of her upper GI series . She has been complaining of having recurrent heartburn symptoms worse at night. Upper GI series showed presence of moderate gastroesophageal reflux disease present. She has been taking omeprazole 20 mg daily which affords only temporary relief. Denies any blood in stool, no abdominal pain reported. [facility] Medical History (Updated 12/25/23 @ 13:47 by Mima Morley MD) Chronic GERD History of vitamin D deficiency History of seizure disorder On depo medroxyprogesterone acetate for contraception Cognitive developmental delay Heartburn Environmental allergies Mild intermittent asthma in adult without complication Surgical History No pertinent past surgical history Family History Father No problems noted. Mother Diabetes mellitus HTN (hypertension) Substance use disorder Mental health disorder Maternal Aunt Substance use disorder Sister No problems noted. Maternal Grandmother Substance use disorder Social History Housing: House Housing Other:: Private home Alcohol intake: never Patient Tobacco Use Status: Never used Tobacco e-Cigarette/Vaping Use: Never Used service: No Current occupational status: employed Cognitive needs: No Hearing needs: No Vision needs: Yes Questionnaire PHQ-9 Over the last 2 weeks, how often have you been bothered by any of the following problems? 1. Little interest or pleasure in doing things: not at all 2. Feeling down, depressed, or hopeless: not at all 3. Trouble falling or staying asleep, or sleeping too much: not at all 4. Feeling tired or having little energy: not at all 5. Poor appetite or overeating: not at all 6. Feeling bad about yourself - or that you are a failure or have let yourself or your family down: not at all 7. Trouble concentrating on things, such as reading the newspaper or watching television: not at all 8. Moving or speaking so slowly that other people could have noticed. Or the opposite - being so fidgety or restless that you have been moving around a lot more than usual: not at all 9. Thoughts that you would be better off or of hurting yourself in some way: not at all Total score: 0 Depression Screening Interpretation: Negative Depression Screening Done: Yes 74578 - PHQ-9 Billing: Yes Source: Developed by Drs. Peewee Medrano, Rebeca Frost, Armaan Red and colleagues, with an educational yo from [employer]. Thrive Questionnaire Date Thrive assessed: 12/25/23 I am a: Patient What is your living situation today?: I have a steady place to live Within the past 12 months, did the food you bought not last and you didn't have the money to get more?: Never true Within the past 12 months, did you worry whether your food would run out before you got money to buy more?: Sometimes True Do you have trouble paying for medicines?: No Do you have trouble getting transportation to medical appointments?: No Do you have trouble paying your heating and electricity bill?: I choose not to answer this question Do you have trouble taking care of your child, family member or friend?: I choose not to answer this question Do you have trouble with day-to-day activities such as bathing, preparing meals, shopping, managing finances, etc.?: I choose not to answer this question Are you currently unemployed and looking for a job?: Yes Are you interested in more education?: I choose not to answer this question Please select the resources that you would like help with: Job search/training Currently or been in a relationship where the following occur: I choose not to answer THRIVE Score: 1 AUDIT C Alcohol Use Questionnaire (AUDIT-C) 1. How often do you have a drink containing alcohol?: Never 2. How many drinks containing alcohol do you have on a typical day when you are drinking?: 1 or 2 3. How often do you have six or more drinks on one occasion?: Never Total Score: 0 Score Reviewed/Action Taken: Yes PARKER-7 AMB Questionnaire PARKER-7 Date PARKER - 7 assessed: 12/25/23 Feeling nervous, anxious, or on edge: 0 = Not at all Not being able to stop or control worryin = Not at all Worrying too much about different things: 0 = Not at all Trouble relaxin = Not at all Being so restless that it is hard to sit still: 0 = Not at all Becoming easily annoyed or irritable: 0 = Not at all Feeling afraid as if something awful might happen: 0 = Not at all Total PARKER-7 score (0-4 normal; 5-9 mild; 10-14 moderate; 15-21 severe): 0 Source: Developed by Drs. Peewee Medrano, Rebeca Frost, Armaan Red and colleagues, with an educational yo from [employer]. PARKER-7 Assessment Billing PARKER-7 Assessment Tool: PARKER-7 Assessment 22064 Review of Systems Const All systems reviewed & are unremarkable except as noted in HPI and below Physical exam (Primary Care) Vital Signs: Last Vital Signs Pulse 83 12/25/23 13:19 BP 120/72 12/25/23 13:19 Pulse Ox 98 12/25/23 13:19 Oxygen Delivery Method Room Air 12/25/23 13:19 BMI result Body Mass Index 27.9 Tobacco/Smoking Status: Tobacco use Status Tobacco use date assessed 09/06/23 12/25/23 13:20 Patient Tobacco Use Status Never used Tobacco 12/25/23 13:20 e-Cigarette/Vaping Use Never Used 12/25/23 13:20 PHQ-9: PHQ-9 Score PHQ-9: Total score 0 12/25/23 13:40 Depression Screening Interpretation: Negative Thrive Assessment: Date of Thrive Assessment Date Thrive assessed 12/25/23 12/25/23 13:20 Currently or been in a relationship where the following occur: I choose not to answer Const General: no acute distress and alert HENMT Mouth: Normal oral and palatal mucosa present, oropharynx normal and moist mucous membranes Neck Neck: Yes full ROM and Yes no lymphadenopathy Thyroid: Thyroid normal Resp Effort & Inspection: normal respiratory effort and able to speak in complete sentences Auscultation: clear to auscultation bilaterally Cardio Jugular venous distension: no JVD Rate: regular rate Rhythm: regular rhythm Heart sounds: S1 normal heart sound present and S2 normal heart sound present GI Inspection: Yes normal to inspection Palpation (GI): Soft to palpation, nontender, no guarding and no masses Auscultation: normal bowel sounds Extrem General: Yes normal to inspection, Yes full ROM, Yes no pedal edema and Yes normal gait Assessment and Plan Assessment & Plan (1) Chronic GERD: Code(s): K21.9 - Gastro-esophageal reflux disease without esophagitis Plan: Stop omeprazole, prescription sent for pantoprazole 40 mg at bedtime 30 tablets with 5 refills, advised to take medication at least an hour before eating or 2 hours after eating. Avoidance of triggers for heartburn, do not lie down immediately after eating, referral to gastroenterology clinic ordered Orders: Referrals Gastroenterology Referral K21.9 - Gastro-esophageal reflux disease without esophagitis Medications: New pantoprazole 40 mg PO BEDTIME 30 tabs 5RF Changed From calcium carbonate (Tums) 200 mg PO DAILY PRN 30 tabs 1RF dyspepsia/ heartburn To calcium carbonate (Tums) 200 mg PO BID PRN 60 tabs 1RF dyspepsia/ heartburn Discontinued omeprazole Discontinued Reason: Doctor's Order 20 mg PO DAILY 90 caps 1RF Coding Level of Care Code Est Pt Level 4 (27704) Diagnoses Chronic GERD K21.9 Additional Codes PARKER-7 Assessment Billing - PARKER-7 Assessment Tool: PARKER-7 Assessment 18077 ([id number])
== END 2023-12-25 14:09 | disposition home or self-care (01) ==
PROVIDERS: PCP Internal Medicine; Visit Provider Internal Medicine
DX: K21.9 Gastro-esophageal reflux disease without esophagitis (principal)
CPT/HCPCS: 99214

== ENCOUNTER 2024-02-17 08:45 | Outpatient (AMB) | payer OTHER, SELFPAY ==
[2024-02-17 09:24] VITALS: BMI 28.6
--- NOTE | 2024-02-17 09:24 | AM.OFFVISNUR ---
Vital Signs 02/17/24 09:24 Height 5 ft 6 in Weight 80.513 kg BMI 28.6 Intake Visit Reasons: DEPO Allergies No Known Allergies Allergy (Verified 12/25/23 13:39) Office Procedures Depo Questionnaire If YES to any of the following questions, please consult a provider. Date of last injection: 11/29/23 Date of last gynecology exam: 08/29/23 Menstrual pattern since last injection has been: Not Applicable Irregular bleeding?: No Breast lumps or other breast changes?: No Changes in weight or appetite?: No Depression or changes in mood?: No Abnormal hair growth or loss?: No Skin problems (rash, acne, discoloration)?: No Pain at the injection site?: No Headaches?: No Nervousness?: No Abdominal pain or cramping?: No Dizziness or nausea?: No Fatigue or weakness?: No Decrease in sexual drive?: No Chest pain or shortness of breath?: No Swelling in arms or legs?: No Form completed by?: Harinder Gregorio LPN Office Meds Depo-Provera 150 mg/mL intramuscular syringe Performing Provider: Lidia Brice CNM Performing Location: [facility] [place] [facility] Administered by: Alejandra Gregorio LPN on 02/17/24 09:25 Dose Route Admin Location Dispensed Lot Number Expiration Date [facility] Maker Up Folding 150 mg IM rt. deltoid 1 mL [id number] 07/03/25 61538-663-64 [employer]ia Assessment & Plan Assessment & Plan Orders: Orders AMB Medroxyprogesterone Injection Patient Supplied Today Z30.42 - Encounter for surveillance of injectable contraceptive Medications: New Depo-Provera (medroxyprogesterone) 150 mg IM ONCE 1 mL 0RF NS Z30.42 - Encounter for surveillance of injectable contraceptive
== END 2024-02-17 09:21 | disposition home or self-care (01) ==
LOC: HO.HWS 08:45
PROVIDERS: PCP Internal Medicine; Visit Provider Advanced Practice Midwife
DX: Z30.42 Encounter for surveillance of injectable contraceptive (principal)

== ENCOUNTER → 2024-02-17 08:45 | Outpatient (BNVA) | payer OTHER, SELFPAY | PROVIDERS: PCP Internal Medicine; Visit Provider Advanced Practice Midwife | DX: Z30.42 Encounter for surveillance of injectable contraceptive (principal) | CPT/HCPCS: 96372; 99211; J1050 ==

== ENCOUNTER 2024-04-15 10:59 | Outpatient (AMB) | payer OTHER, SELFPAY ==
--- NOTE | 2024-04-15 11:02 | A.OFFVIS_ITS ---
Vital Signs 04/15/24 11:11 Height 5 ft 6 in Weight 175 lb 7.807 oz BMI 28.3 BP 136/68 Blood Pressure Location Lt brachial Position Sitting Pulse 90 Intake Visit Reasons: Gastroesophageal reflux disease (GERD) Intake Note: Dipti presents as a new patient for evaluation and management of GERD. CC: Patient c/o heartburn, acid reflux, and sometimes having nausea, vomiting, and diarrhea. Patient had upper GI done here at [facility] on 11/06/23. Easement Worker Required: No Allergies No Known Allergies Allergy (Verified 04/15/24 11:17) HPI HPI Gastroesophageal reflux disease (GERD): Details: 29-year-old female here for initial evaluation of GERD. She is referred by Mima Morley. PMX Asthma Allergic rhinitis GERD History of seizure disorder - none since pre teens Cognitive developmental delay * SURGICAL HISTORY [place] tooth removed * ALLERGIES: NKDA * [employer] LABS: Laboratory Tests 09/06/23 10:08 WBC 6.0 Hgb 14.9 Hct 45.7 Plt Count 347 Estimated GFR > 60 AST 12 ALT 17 UGI STUDY 11/08/23 FINDINGS: Dual and single contrast images of the esophagus demonstrate normal caliber, contour, and mucosal pattern. No evidence of stricture, mass, or ulcerations identified. Esophageal peristalsis was normal. No evidence of hiatus hernia identified. Gastroesophageal reflux is seen up to the midesophagus. Dual contrast and single contrast images of the stomach demonstrated normal contour and mucosal pattern without evidence of mass, ulceration, or other abnormality. Contrast freely passed into the gastric antrum and duodenal bulb without delay. Single and air-contrast images of the duodenal bulb demonstrate no abnormality. The duodenal sweep has a normal appearance, course, and mucosal fold appearance. The imaged proximal jejunum has a normal fold pattern and caliber. FLUOROSCOPY TIME: 3 minutes 59 seconds Number of Spot Images: 10 Number of Cine: 14 DOSE AREA PRODUCT: 2428 uGy-m2 (microgray-meter squared) FL/FL upper GI w air IMPRESSION: 1. Moderate gastroesophageal reflux. TODAY'S VISIT She is here today with a staff member who is supportive and is the primary sword swallower. Neema Brown. She says she has had HB for years and it is worse at night despite her pantorapzole. She also c/o frequent nausea and will vomit about once a week. They can not tie any particular food to her vomiting. She also will have diarrhea about once a week. She has been gaining weight recently about 15-20 lbs. THis may be due to a multiple factors, she is no longer working at [employer] and she goes to a day program now. They are working to cut out unnecessary calories, but this education is process is difficult with her Mother - but she is not in her care and only sees her once a week. She is cognitively impaired and does not know if there are any GI problems in X. We will get EGD and change her medications to pantoprazole qam and famotidine added in the evening. Her asthma is well controlled and not cardiac problems, no recent seizures. She is naive to anesthesia and sedation. No ID problems. Return office visit in 4-6 weeks to evaluate the effectiveness of the pantoprazole/famotidine combination. [facility] Medical History (Updated 06/30/24 @ 17:50 by DANILO Davis) On depo medroxyprogesterone acetate for contraception (~05/04/24) Heartburn Chronic GERD History of vitamin D deficiency History of seizure disorder Cognitive developmental delay Environmental allergies Mild intermittent asthma in adult without complication Surgical History No pertinent past surgical history Family History Father No problems noted. Mother Diabetes mellitus HTN (hypertension) Substance use disorder Mental health disorder Maternal Aunt Substance use disorder Sister No problems noted. Maternal Grandmother Substance use disorder Social History Housing: House Housing Other:: Private home Alcohol intake: never Patient Tobacco Use Status: Never used Tobacco e-Cigarette/Vaping Use: Never Used service: No Current occupational status: employed Cognitive needs: No Hearing needs: No Vision needs: Yes Review of Systems Const Denies fatigue, Denies fever(s), Denies night sweats, Denies poor appetite, Reports weight gain and Denies weight loss ENT Reports Normal hearing present, Denies dental pain, Denies dysphagia, Denies hearing loss, Denies mouth pain, Denies odynophagia, Denies throat swelling, Denies tongue swelling and Reports other (Dentition adequate) Card Reports chest pain Resp Reports no additional complaints GI Details: Denies abdominal pain, Denies melena, Denies bloating, Denies hematochezia, Denies constipation, Denies GI cramping, Denies dysphagia, Denies excessive flatus, Denies early satiety, Reports heartburn, Denies diarrhea, Reports nausea, Denies odynophagia, Reports vomiting and Denies hematemesis Skin/Breast Denies pruritus, Denies lesions, Denies rash and Denies jaundice Neuro Reports Normal hearing present and Denies Abnormal speech present Endo Denies fatigue Aller/Immun Denies throat swelling and Denies tongue swelling Physical Exam Vital Signs: Last Vital Signs Pulse 90 04/15/24 11:11 BP 136/68 04/15/24 11:11 BMI result Body Mass Index 28.3 Const General: cooperative, no acute distress, well developed and well groomed Nutritional Appearance: well nourished and overweight Orientation/consciousness: oriented to person, oriented to place and oriented to time Limitations: altered mental status and No language barrier HEENT Head: Yes normocephalic and Yes atraumatic Eyes General: appearance normal, both eyes and all related structures Pupils: Equal, round and reactive pupils present Neck Neck: Yes normal visual inspection and Yes no lymphadenopathy Thyroid: Thyroid normal Resp Effort & Inspection: normal respiratory effort and able to speak in complete sentences Auscultation: clear to auscultation bilaterally Cardio Rate: regular rate Rhythm: regular rhythm Heart sounds: Normal, physiologic split S2 sound present Peripheral pulses: radial pulses present and posterior tibial pulses present GI Inspection: No distended, No Abdominal panniculus present and Yes obesity Palpation (GI): Soft to palpation, nontender, no guarding, not rigid and No hepatosplenomegaly present Percussion: Yes normal to percussion Auscultation: normal bowel sounds Rectal Exam - Female: deferred Skin General skin exam: no rashes or lesions noted, turgor normal, skin not dry, no jaundice, No spider nevi and no striae Rashes: no rashes Nails: normal Neuro General: oriented to person, oriented to place and oriented to time Cranial nerves: Yes Equal, round and reactive pupils present and Yes Normal hearing present Speech: No Abnormal speech present Extrem General: Yes normal to inspection, No clubbing, No cyanosis and No edema Psych Appearance: grossly normal and well kempt Mental Status: other Speech and movement: Normal speech and movement present Affect: normal affect Attitude: cooperative Thought process: not confabulating and Impoverished thought process present Thought content: Normal thought content present Insight: Poor insight present (Psych) Judgement: Poor judgement present (Psych) Results Reviewed Results Reviewed: Laboratory Tests 09/06/23 10:08 WBC 6.0 Hgb 14.9 Hct 45.7 Plt Count 347 Estimated GFR > 60 AST 12 ALT 17 UGI STUDY 11/08/23 FINDINGS: Dual and single contrast images of the esophagus demonstrate normal caliber, contour, and mucosal pattern. No evidence of stricture, mass, or ulcerations identified. Esophageal peristalsis was normal. No evidence of hiatus hernia identified. Gastroesophageal reflux is seen up to the midesophagus. Dual contrast and single contrast images of the stomach demonstrated normal contour and mucosal pattern without evidence of mass, ulceration, or other abnormality. Contrast freely passed into the gastric antrum and duodenal bulb without delay. Single and air-contrast images of the duodenal bulb demonstrate no abnormality. The duodenal sweep has a normal appearance, course, and mucosal fold appearance. The imaged proximal jejunum has a normal fold pattern and caliber. FLUOROSCOPY TIME: 3 minutes 59 seconds Number of Spot Images: 10 Number of Cine: 14 DOSE AREA PRODUCT: 2428 uGy-m2 (microgray-meter squared) FL/FL upper GI w air IMPRESSION: 1. Moderate gastroesophageal reflux. Assessment & Plan Assessment & Plan (1) Chronic GERD: Code(s): K21.9 - Gastro-esophageal reflux disease without esophagitis Category: Medical (2) Nausea and vomiting: Code(s): R11.2 - Nausea with vomiting, unspecified Category: Medical (3) Cognitive impairment: Code(s): R41.89 - Other symptoms and signs involving cognitive functions and awareness Category: Medical (4) History of seizure disorder: Code(s): Z86.69 - Personal history of other diseases of the nervous system and sense organs Category: Medical Plan She is here today with a staff member who is supportive and is the primary sword swallower. Neema Brown. She says she has had HB for years and it is worse at night despite her pantorapzole. She also c/o frequent nausea and will vomit about once a week. They can not tie any particular food to her vomiting. She also will have diarrhea about once a week. She has been gaining weight recently about 15-20 lbs. THis may be due to a multiple factors, she is no longer working at [employer] and she goes to a day program now. They are working to cut out unnecessary calories, but this education is process is difficult with her Mother - but she is not in her care and only sees her once a week. She is cognitively impaired and does not know if there are any GI problems in FHX. We will get EGD and change her medications to pantoprazole qam and famotidine added in the evening. Her asthma is well controlled and not cardiac problems, no recent seizures. She is naive to anesthesia and sedation. No ID problems. Return office visit in 4-6 weeks to evaluate the effectiveness of the pantoprazole/famotidine combination. Orders: Orders US abdomen complete 04/15/24 R11.2 - Nausea with vomiting, unspecified EGD - GI Use Only 04/15/24 K21.9 - Gastro-esophageal reflux disease without esophagitis Medications: New famotidine (Pepcid) 40 mg PO .qevening 30 tabs 6RF K21.9 - Gastro-esophageal reflux disease without esophagitis Changed From pantoprazole 40 mg PO BEDTIME 30 tabs 5RF K21.9 - Gastro-esophageal reflux disease without esophagitis To pantoprazole 40 mg PO QAM 30 tabs 6RF K21.9 - Gastro-esophageal reflux disease without esophagitis Coding Level of Care Code New Pt Level 3 (80685) Diagnoses Chronic GERD K21.9 Nausea and vomiting R11.2 Cognitive impairment R41.89 History of seizure disorder Z86.69
[2024-04-15 11:11] VITALS: BP 136/68; PULSE 90; BMI 28.3
== END 2024-04-15 12:06 | disposition home or self-care (01) ==
PROVIDERS: PCP Internal Medicine; Visit Provider Nurse Practitioner
DX: K21.9 Gastro-esophageal reflux disease without esophagitis (principal); R11.2 Nausea with vomiting, unspecified; R41.89 Other symptoms and signs involving cognitive functions and awareness; Z86.69 Personal history of other diseases of the nervous system and sense organs
CPT/HCPCS: 99203

== ENCOUNTER → 2024-04-15 10:59 | Outpatient (BNVA) | payer OTHER, SELFPAY | PROVIDERS: PCP Internal Medicine; Visit Provider Nurse Practitioner | DX: K21.9 Gastro-esophageal reflux disease without esophagitis (principal); R11.2 Nausea with vomiting, unspecified; R41.89 Other symptoms and signs involving cognitive functions and awareness; Z86.69 Personal history of other diseases of the nervous system and sense organs | CPT/HCPCS: 99202 ==

== ENCOUNTER 2024-05-04 09:57 | Outpatient (AMB) | payer OTHER, SELFPAY ==
[2024-05-04 10:10] VITALS: BMI 28.9
--- NOTE | 2024-05-04 10:10 | AM.OFFVISNUR ---
Vital Signs 05/04/24 10:10 Height 5 ft 6 in Weight 179 lb 4 oz BMI 28.9 Intake Visit Reasons: depo Allergies No Known Allergies Allergy (Verified 04/15/24 11:17) Nursing Note Dipti is here today for her scheduled Depo-Provera INJ. She denies any problems or concerns. Pt is scheduled for her next AG in 09/01/24 and in 12 wks for her next injection. Office Procedures Depo Questionnaire If YES to any of the following questions, please consult a provider. Date of last injection: 02/17/24 Date of last gynecology exam: 08/29/23 Menstrual pattern since last injection has been: Not Applicable Irregular bleeding?: No Breast lumps or other breast changes?: No Changes in weight or appetite?: No Depression or changes in mood?: No Abnormal hair growth or loss?: No Skin problems (rash, acne, discoloration)?: No Pain at the injection site?: No Headaches?: No Nervousness?: No Abdominal pain or cramping?: No Dizziness or nausea?: No Fatigue or weakness?: No Decrease in sexual drive?: No Chest pain or shortness of breath?: No Swelling in arms or legs?: No Form completed by?: Harinder becker LPN Office Meds Depo-Provera 150 mg/mL intramuscular syringe Performing Provider: Lidia Brice CNM Performing Location: [facility] [place] [facility] Administered by: Alejandra Becker LPN on 05/04/24 10:11 Dose Route Admin Location Dispensed Lot Number Expiration Date [facility] Forming Machine [employer] 150 mg IM left deltoid 1 mL [id number] 01/31/26 21942-277-70 Eugia Assessment & Plan Assessment & Plan Orders: Orders AMB Medroxyprogesterone Injection Patient Supplied Today Z30.42 - Encounter for surveillance of injectable contraceptive Medications: New Depo-Provera (medroxyprogesterone) 150 mg IM ONCE 1 mL 0RF NS Z30.42 - Encounter for surveillance of injectable contraceptive
== END 2024-05-04 10:10 | disposition home or self-care (01) ==
LOC: HO.HWS 09:57
PROVIDERS: PCP Internal Medicine; Visit Provider Advanced Practice Midwife
DX: Z30.42 Encounter for surveillance of injectable contraceptive (principal)

== ENCOUNTER → 2024-05-04 09:57 | Outpatient (BNVA) | payer OTHER, SELFPAY | PROVIDERS: PCP Internal Medicine; Visit Provider Advanced Practice Midwife | DX: Z30.42 Encounter for surveillance of injectable contraceptive (principal) | CPT/HCPCS: 96372; 99211; J1050 ==

== ENCOUNTER 2024-05-11 10:29 | Outpatient (REF) | payer OTHER, SELFPAY ==
--- NOTE | ~2024-05-11 | US_ITS ---
EXAMINATION: US ABDOMEN COMPLETE CLINICAL INFORMATION: Nausea with vomiting, unspecified. COMPARISON: None available. TECHNIQUE: Real-time imaging of the abdominal viscera. FINDINGS: PANCREAS: Visualized portions are unremarkable. ABDOMINAL AORTA: The proximal, mid, and distal segments are normal in caliber. INFERIOR VENA CAVA: Visualized portions are normal. LIVER: The liver is normal in size. The liver contour is normal. Increased echogenicity of the liver parenchyma, this can be seen in the setting of hepatic steatosis or liver parenchymal disease. No focal hepatic lesion. There is no intrahepatic biliary duct dilatation seen. GALLBLADDER: The gallbladder is physiologically distended without evidence of stones, sludge, polyps, wall thickening or pericholecystic fluid. COMMON BILE DUCT: Normal in caliber measuring 0.4 cm in diameter. RIGHT KIDNEY: No hydronephrosis. No renal calculi or focal parenchymal lesions. The kidney measures 9.6 cm in maximum dimension. LEFT KIDNEY: No hydronephrosis. No renal calculi or focal parenchymal lesions. The kidney measures 11.9 cm in maximum dimension. SPLEEN: The spleen measures 7.9 cm in maximum dimension. FREE FLUID: None. US/US abdomen complete IMPRESSION: No ultrasound explanation for patient's symptoms. Increased echogenicity of the liver parenchyma, this can be seen in the setting of hepatic steatosis or liver parenchymal disease. Electronically signed by: Arben Ramos MD 05/24/2024 01:20 PM RAE
== END 2024-05-11 10:30 | disposition home or self-care (01) ==
LOC: HO.HMGCX 10:29
PROVIDERS: PCP Internal Medicine; Visit Provider Nurse Practitioner
DX: R11.2 Nausea with vomiting, unspecified (principal)
CPT/HCPCS: 76700

== ENCOUNTER 2024-07-27 10:06 | Outpatient (AMB) | payer OTHER, SELFPAY ==
[2024-07-27 10:20] VITALS: BMI 28.9
--- NOTE | 2024-07-27 10:20 | AM.OFFVISNUR ---
Vital Signs 07/27/24 10:20 Height 5 ft 6 in Weight 179 lb BMI 28.9 Intake Visit Reasons: depo Allergies No Known Allergies Allergy (Verified 04/15/24 11:17) Nursing Note Princess is here today with her caregiver for her scheduled Depo-provera inj. She denies any problems or concerns. AG is scheduled for 09/01/24. Pt brought to front end manager to schedule her next Depo-Provera inj. Office Procedures Depo Questionnaire If YES to any of the following questions, please consult a provider. Date of last injection: 05/04/24 Date of last gynecology exam: 08/29/23 Menstrual pattern since last injection has been: Not Applicable Irregular bleeding?: No Breast lumps or other breast changes?: No Changes in weight or appetite?: No Depression or changes in mood?: No Abnormal hair growth or loss?: No Skin problems (rash, acne, discoloration)?: No Pain at the injection site?: No Headaches?: No Nervousness?: No Abdominal pain or cramping?: No Dizziness or nausea?: No Fatigue or weakness?: No Decrease in sexual drive?: No Swelling in arms or legs?: No Form completed by?: Harinder Gregorio LPN Office Meds Depo-Provera 150 mg/mL intramuscular syringe Performing Provider: Lidia Brice CNM Performing Location: [facility] Administered by: Alejandra Gregorio LPN on 07/27/24 10:20 Dose Route Admin Location Dispensed Lot Number Expiration Date [facility] Professor Of Public Administration 150 mg IM lt. deltoid 1 mL [id number] 08/31/25 40533-359-24 MYLAN Assessment & Plan Assessment & Plan Orders: Orders AMB Medroxyprogesterone Injection Patient Supplied Today Z30.42 - Encounter for surveillance of injectable contraceptive Medications: New Depo-Provera (medroxyprogesterone) 150 mg IM ONCE 1 mL 0RF NS Z30.42 - Encounter for surveillance of injectable contraceptive Coding Level of Care Code Established Pt Est Pt Level 1 (32931) Patient Type Established History Problem Focused Exam Problem Focused Medical Decision Making Straight Forward Time Spent (min) 20
--- OUTSIDE RECORDS SUMMARY | 2024-07-27 11:18 | XMS_ITS | Clinical Summary ---
Author Organization [facility] Address [address] [place] [id number] Care Team Providers Care Rental Manager Name Role Phone Mima Morley MD Primary Care Provider [phone] Surgical History Surgery Date Site/Laterality Comments OTHER SURGICAL HISTORY PROCEDURE: DENIES PREVIOUS SURGERY Medical History Medical History Date Comments Seasonal allergies DX:Seasonal a llergies Grand mal seizure ([facility]) DX:G rand mal seizure ([facility]); COMMENT: x 1 Asthma DX:Asthma Developmental delay DX:Developme ntal delay 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; COMMENT: Dr Abraham Migraine without aura 02/02/2021 DX:Migrain e without aura Seizure disorder ([facility]) DX:Se izure disorder ([facility]); COMMENT: x 1 Family History Medical History Relation Name Comments Cataracts Maternal Grandmother Diabetes Mother's side 1 htn Other cancer Mother's side 2 aunt, non-ho dgkins lymphoma Blindness Neg Hx Glaucoma Neg Hx Macular degeneration Neg Hx Strabismus Neg Hx Relation Name Status Comments Maternal Grandmother Mother's side 1 Mother's side 2 Social History Tobacco Use Types Packs/Day Years Used Date Smoking Tobacco: Never Smokeless Tobacco: Never Alcohol Use Standard Drinks/Week Comments No 0 (1 standard drink = 0.6 oz pur e alcohol) Comments Unknown Sex and Gender Information Value Date Recorded Sex Assigned at Not on file Legal Sex Female 9:59 AM EST Gender Identity Not on file Sexual Orientation Not on file Obstetrics History Last Filed Vital Signs Vital Sign Reading Time Taken Comments Blood Pressure - - Pulse - - Temperature - - Respiratory Rate - - Oxygen Saturation - - Inhaled Oxygen Concentration - - Weight 74.4 kg (164 lb) 09/24/2023 10:59 AM EDT Height 165.1 cm (5' 5 ) 09/24/2023 10:59 AM EDT Body Mass Index 27.29 09/24/2023 10:59 AM EDT Plan of Treatment Health Maintenance Due Date Last Done Comments Hepatitis B Vaccines (1 of 3 - 19+ 3-dose series) 2012 Pneumococcal Vaccine: Pediat rics (0 to 5 Years) and At-Risk Patients (6 to 64 Years) (1 of 2 - PCV) 2012 Cervical Cancer Screening: P ap Smear 2014 Depression Screening 05/06/2022 HIV Screening 05/06/2022 Hepatitis C Screening 05/06/2022 Social Influencers of Health Screening 05/06/2022 COVID-19 Vaccine (1 - 2023-2 5 season) 2024 Influenza Vaccine (#1) 2024 03/06/2017 DTaP,Tdap,and Td Vaccines (2 - Td or Tdap) 11/29/2024 11/29/2014 HIB Vaccines Aged Out No longer eligi ble based on patient's age to complete this topic HPV Vaccines Aged Out No longer eligi ble based on patient's age to complete this topic Hepatitis A Vaccines Aged Out No long er eligible based on patient's age to complete this topic IPV Vaccines Aged Out No longer eligi ble based on patient's age to complete this topic MMR Vaccines Aged Out No longer eligi ble based on patient's age to complete this topic Meningococcal ACWY Vaccine Aged Out N o longer eligible based on patient's age to complete this topic Meningococcal B Vacine Aged Out No lo nger eligible based on patient's age to complete this topic RSV Immunization Patients Un mik 20 months Aged Out No longer eligible b ased on patient's age to complete this topic Varicella Vaccines Aged Out No longer eligible based on patient's age to complete this topic Advance Directives Documents on File Type Date Recorded 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
== END 2024-07-27 11:05 | disposition home or self-care (01) ==
LOC: HO.HWS 10:06
PROVIDERS: PCP Internal Medicine; Visit Provider Advanced Practice Midwife
DX: Z30.42 Encounter for surveillance of injectable contraceptive (principal)

== ENCOUNTER → 2024-07-27 10:06 | Outpatient (BNVA) | payer OTHER, SELFPAY | PROVIDERS: PCP Internal Medicine; Visit Provider Advanced Practice Midwife | DX: Z30.42 Encounter for surveillance of injectable contraceptive (principal) | CPT/HCPCS: 96372; 99211; J1050 ==

== ENCOUNTER 2024-09-01 10:37 | Outpatient (AMB) | payer OTHER, SELFPAY ==
--- NOTE | 2024-09-01 10:39 | MHC.OFFVIS ---
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 Doing well with no contact lens molder concerns. Doing well on Depo, does not want to have a period ever. She denies any contraindications to control such as: migraines with aura, history of DVT or pulmonary emboli, high blood pressure, liver disease, thrombolic disorders, Lupus, +LIN, breast cancer, or smoking. Currently is never sexually active, has a friend only kissed, no other contact, in a chaperoned setting. She denies vaginal itching and irritation. She tries to eat healthy and stays active with exercise. Denies family history of breast, ovarian or colon cancer. Last pap smear 2023, negative. [facility] Medical History Surveillance for Depo-Provera contraception Encounter for well woman exam with routine gynecological exam On depo medroxyprogesterone acetate for contraception (~05/04/24) Heartburn Chronic GERD History of vitamin D deficiency History of seizure disorder Cognitive developmental delay Environmental allergies Mild intermittent asthma in adult without complication Surgical History No pertinent past surgical history Family History Father No problems noted. Mother Diabetes mellitus HTN (hypertension) Substance use disorder Mental health disorder Maternal Aunt Substance use disorder Sister No problems noted. Maternal Grandmother Substance use disorder Social History Housing: House Housing Other:: Private home Alcohol intake: never Patient Tobacco Use Status: Never used Tobacco e-Cigarette/Vaping Use: Never Used service: No Current occupational status: employed Cognitive needs: No Hearing needs: No Vision needs: Yes Female Reproductive History Menstrual control method: progesterone injection (Depo 07/27/24) Total pregnancies: 0 Date of last pap smear: 08/29/23 (neg pap and hpv) Review of Systems Const All systems reviewed & are unremarkable except as noted in HPI and below Reports as per HPI Eyes Reports no additional complaints ENT Reports no additional complaints Card Reports no additional complaints Resp Reports no additional complaints GI Reports as per HPI and Reports no additional complaints Reports as per HPI Musc Reports no additional complaints Skin/Breast Reports as per HPI Neuro Reports no additional complaints Psych Reports no additional complaints Endo Reports no additional complaints Moncho/Lymph Reports no additional complaints Aller/Immun Reports no additional complaints Physical Exam Vital Signs: Last Vital Signs BP 122/80 09/01/24 10:40 BMI result Body Mass Index 28.2 Const General: cooperative, healthy appearing, no acute distress, well developed and alert Orientation/consciousness: patient oriented x3 HEENT Head: Yes normal to inspection Eyes General: appearance normal, both eyes and all related structures Neck Neck: Yes normal visual inspection Thyroid: Thyroid normal Chest Chest palpation & inspection: normal inspection of the chest and other (no puckering, dimpling, peau de orange, retraction, discharge, masses) Breast/axilla inspection: normal inspection of the breasts Breast/axilla palpation: normal palpation of the breasts Resp Effort & Inspection: normal respiratory effort GI Inspection: Yes normal to inspection Palpation (GI): Soft to palpation Rectal Exam - Female: deferred General: Yes bladder normal to palpation External Female Exam: normal external appearance and normal appearance of the urethra Speculum Exam - Vagina: normal appearance of the vagina, normal palpation and normal vaginal discharge Speculum Exam - Cervix: normal appearance of the cervix and normal palpation Bimanual exam- vagina & uterus: normal bimanual exam, normal palpation, uterine size normal, bladder normal to palpation, normal palpation and non-tender Bimanual Exam- Adnexa, other: no masses Skin General skin exam: no rashes or lesions noted Rashes: no rashes Neuro General: patient oriented x3 Cognition (Neuro): normal cognition Extrem General: Yes normal to inspection Psych Attitude: cooperative Thought process: Normal thought process present Assessment & Plan Assessment & Plan (1) Encounter for well woman exam with routine gynecological exam: Code(s): Z01.419 - Encounter for gynecological examination (general) (routine) without abnormal findings Category: Medical Plan: Discussed: Current recommendations for pap smears per ASCCP guidelines. Breast awareness and periodic breast exams. Maintain a healthy lifestyle including a well balanced diet and routine exercise. control hormone use warnings: go to ER if and loss of vision, blindness, severe headache, chest pain or difficulty breathing, severe abdominal pain, or any pain or swelling in an extremity. Patient verbalizes understanding and agrees to the plan of care. She was given opportunity to ask questions and all questions were answered to the best of my ability. RTO in one year for annual contact lens molder examination. This note is constructed using voice recognition software. While every effort has been made to ensure accuracy, criminal investigative agent errors may have been included. (2) Surveillance for Depo-Provera contraception: Code(s): Z30.42 - Encounter for surveillance of injectable contraceptive Category: Medical Plan Refills sent to pharmacy for the yr. Medications: Changed From medroxyprogesterone 150 mg IM [id number] 3 months 1 mL 0RF To medroxyprogesterone 150 mg IM Q12W 3 months 2 mL 4RF Coding Level of Care Code Est Pt Prev Care 18-39y(86095) Diagnoses Encounter for well woman exam with routine gynecological exam Z01.419 Surveillance for Depo-Provera contraception Z30.42
[2024-09-01 10:40] VITALS: BP 122/80; BMI 28.2
--- OUTSIDE RECORDS SUMMARY | 2024-09-01 12:38 | XMS_ITS | Encounter Summary ---
Author Organization [facility] Address [address] [place] [address] Care Team Providers Care Hatchery Supervisor Name Role Phone Caitie Godinez DO Primary Care Pro vider Unavailable [facility], Pcp Primary Care Provider Mima Evangelista Md, MD Primary Care Provider Unavailable Encounter Details Date Type Department Care Team Description 03/29/2021 Indoor Sports Centre Manager Report Medical Records [address] [place] [address] Faviola Abraham MD Social History Tobacco Use Types Packs/Day Years Used Date Smoking Tobacco: Never Smokeless Tobacco: Never Alcohol Use Standard Drinks/Week Comments No 0 (1 standard drink = 0.6 oz pur e alcohol) Sex Assigned at Date Recorded Not on file Job Start Date Occupation Industry Not on file Not on file Not on file documented as of this encounter Plan of Treatment Not on file documented as of this encounter Visit Diagnoses Not on filedocumented in this encounter Care Teams Hatchery Supervisor Relationship Specialty Start Date End Date Caitie Godinez DO PCP - General Internal Medicine 12/01/14 11/23/21 Ann, Pcp PCP - General Internal Medicine 11/24/21 12/25/21 Mima Morley MD, MD PCP - General Internal Medicine 12/26/21 documented as of this encounter
--- OUTSIDE RECORDS SUMMARY | 2024-09-01 12:38 | XMS_ITS | Encounter Summary ---
Author Organization [facility] Address [address] [place] [address] Care Team Providers Care Security Checker Name Role Phone Caitie Godinez DO Primary Care Pro vider Unavailable [facility], Pcp Primary Care Provider Mima Evangelista Md, MD Primary Care Provider Unavailable Reason for Visit * Reason Onset Date Comments Form 07/24/2016 DTA Encounter Details Date Type Department Care Team Description 07/24/2016 Telephone Adult Medicine [address] [address] Caitie Godinez DO Form (DTA) Social History Tobacco Use Types Packs/Day Years Used Date Smoking Tobacco: Never Smokeless Tobacco: Never Alcohol Use Standard Drinks/Week Comments No 0 (1 standard drink = 0.6 oz pur e alcohol) Sex Assigned at Date Recorded Not on file Job Start Date Occupation Industry Not on file Not on file Not on file documented as of this encounter Miscellaneous Notes * Telephone Encounter - Amanda Lezama - 08/22/2016 1:44 PM EDT Message left need appt see below * Telephone Encounter - Snehal Silveira M.A. - 08/22/2016 9:28 AM EDT Pt will need appt to complete this form with pcp as its from DTA office and last visit was with a pa for a sick visit Pt has 2 forms and pcp would also like to see her for that one as while Please call and book pt * Telephone Encounter - Snehal Silveira M.A. - 07/27/2016 3:55 PM EST Form has been filled out and is going to be sent to willy guerrafor signature . * Telephone Encounter - Marcia Ballesteros - 07/24/2016 3:18 PM EST If patient presents with the one of the forms directly below the direct patient with their forms toMedical Records to be completed by [facility]. All [facility] disability forms ONLY All Storekeeper Helper requests for Worker's Compensation Motor vehicle accident [facility] Elder Care/[facility] Physical forms for long-term housing Life insurance FORMS TO BE COMPLETED IN THE PRACTICE: Type of form: Department of Transitional Assistance Release of information form ( all sections) has been completed and Signed.YES If this form is for the Registry of Motor Vechicles for a handicap placard or plate is the patient go to be: N/A -not a Registry form Is the patient still driving? N\A For what medical problem does the patient need this form completed? Is patients name on the form? YES Is the patients portion (demographics) of the form completed? YES Did the patient sign the form? NO Which provider is form to be completed by? Caitie Burgess Patient requesting the form be: Fax to other office/MD at fax # [phone], Latoya Vasquez If form is not to be picked up by patient has patient been informed that RELEASE OF INFO form must be signed by them for alternate person to hop picker form? YES Patient has been informed that completion will be in 7-10 business days: YES documented in this encounter Plan of Treatment Not on file documented as of this encounter Visit Diagnoses Not on filedocumented in this encounter Care Teams Security Checker Relationship Specialty Start Date End Date Caitie Godinez DO PCP - General Internal Medicine 12/01/14 11/23/21 [facility], Pcp PCP - General Internal Medicine 11/24/21 12/25/21 Mima Morley MD, MD PCP - General Internal Medicine 12/26/21 documented as of this encounter
--- OUTSIDE RECORDS SUMMARY | 2024-09-01 12:38 | XMS_ITS | Encounter Summary ---
Author Organization [facility] Address [address] [place] [address] Care Team Providers Care Public Bath Attendant Name Role Phone Caitie Godinez DO Primary Care Pro vider Unavailable [facility], Pcp Primary Care Provider Mima Evangelista Md, MD Primary Care Provider Unavailable Encounter Details Date Type Department Care Team Description 03/06/2018 Artist And Repertoire Manager Report Medical Records [address] [place] [address] Faviola Abraham MD Social History Tobacco Use [...] on filedocumented in this encounter Care Teams Public Bath Attendant Relationship Specialty Start Date End Date Caitie Godinez DO PCP - General Internal Medicine 12/01/14 11/23/21 Ann, Pcp PCP - General Internal Medicine 11/24/21 12/25/21 Mima Morley MD, MD PCP - General Internal Medicine 12/26/21 documented as of this encounter
--- OUTSIDE RECORDS SUMMARY | 2024-09-01 12:38 | XMS_ITS | Encounter Summary ---
Author Organization [facility] Address [address] [place] [address] Care Team Providers Care Metal Weather Stripper Name Role Phone Caitie Godinez DO Primary Care Pro vider Unavailable [facility], Pcp Primary Care Provider Mima Evangelista Md, MD Primary Care Provider Unavailable Reason for Visit * Reason Onset Date Comments Prior Authorization 09/04/2015 Encounter Details Date Type Department Care Team Description 09/04/2015 Telephone Adult Medicine [address] [address] Caitie Godinez DO Prior Authorization Social History Tobacco Use Types Packs/Day Years [...] encounter Miscellaneous Notes * Telephone Encounter - Valerie Chandler M.A. - 10/27/2015 3:28 PM EDT Approved pt picked up * Telephone Encounter - Maryse Deshpande M.A. - 09/12/2015 11:14 AM EDT Manually faxed. Asking for signature . Signed and faxed back to [facility] * Telephone Encounter - Maryse Deshpande M.A. - 09/05/2015 10:22 AM EDT Done with cover my meds to [employer]. It is formulary with [employer] which is primary * Telephone Encounter - Shani Rutherford - 09/04/2015 3:47 PM EDT Pre Authorization for Medication Does the patient already have this medication?NO Is this a Cover My Meds request: [place] of Medication CLINDAMYCIN PH Dose of Medication 1% GEL How does patient take this med? APPLY SPARINGLY TO AFFECTED AREA NIGHTLY What other dosage or similar medication have you tried in the past for this problem NA Patients current medical insurance [employer] What Prescription Plan does the patient have? NA Prescription Plan Tel # from back of prescription ID card [phone] What is the patients Prescription Plan ID #? [id number] What Pharmacy does the patient use? [facility] Tel # [phone] Fax # [phone] Payor: [employer] FFS / Plan: [facility] [place] $15 / Product Type: HMO [id number] documented in this encounter Plan of Treatment Not on file documented as of this encounter Visit Diagnoses Not on filedocumented in this encounter Care Teams Metal Weather Stripper Relationship Specialty Start Date End Date Caitie Godinez DO PCP - General Internal Medicine 12/01/14 11/23/21 [facility], Pcp PCP - General Internal Medicine 11/24/21 12/25/21 Mima Morley MD, MD PCP - General Internal Medicine 12/26/21 documented as of this encounter
--- OUTSIDE RECORDS SUMMARY | 2024-09-01 12:38 | XMS_ITS | Encounter Summary ---
Author Organization [facility] Address [address] [place] [address] Care Team Providers Care Data Administrator Name Role Phone Caitie Godinez DO Primary Care Pro vider Unavailable [facility], Pcp Primary Care Provider Mima Evangelista Md, MD Primary Care Provider Unavailable Encounter Details Date Type Department Care Team Description 09/21/2019 Hair Mixer Report Medical Records [address] [place] [address] Faviola Abraham MD Social History Tobacco Use [...] on filedocumented in this encounter Care Teams Data Administrator Relationship Specialty Start Date End Date Caitie Godinez DO PCP - General Internal Medicine 12/01/14 11/23/21 Ann, Pcp PCP - General Internal Medicine 11/24/21 12/25/21 Mima Morley MD, MD PCP - General Internal Medicine 12/26/21 documented as of this encounter
--- OUTSIDE RECORDS SUMMARY | 2024-09-01 12:38 | XMS_ITS | Encounter Summary ---
Author Organization [facility] Address [address] [place] [address] Care Team Providers Care Floor Assembler Name Role Phone Caitie Godinez DO Primary Care Pro vider Unavailable Rosa Narvaez MD Primary Care Provider Unavailab le Rosa Isela ChrisoCaitie DO Primary Care Pro vider Unavailable Rosa Isela Colasamilyo Caitie DO Primary Care Pro vider Unavailable [facility], Pcp Primary Care Provider UnavailMima Izquierdo Md, MD Primary Care Provider Unavailable Reason for Visit * Reason Onset Date Comments Faxed Order 04/15/2014 Encounter Details Date Type Department Care Team Description 04/15/2014 Telephone Adult Medicine [address] [address] Caitie Godinez DO Faxed Order Social History Tobacco Use Types Packs/Day Years Used Date Smoking Tobacco: Never Alcohol Use Standard Drinks/Week Comments Not Asked 0 (1 standard drink = 0.6 oz pur e alcohol) Sex Assigned at Date Recorded Not on file Job Start Date Occupation Industry Not on file Not on file Not on file documented as of this encounter Miscellaneous Notes * Telephone Encounter - Naday Henderson - 04/15/2014 1:11 PM EST Health status report for Karrie signature Fax to [phone] [facility] documented in this encounter Plan of Treatment Not on file documented as of this encounter Visit Diagnoses Not on filedocumented in this encounter Care Teams Floor Assembler Relationship Specialty Start Date End Date Caitie Godinez DO PCP - General Internal Medicine 10/19/13 06/07/14 Rosa Narvaez MD PCP - General Pediatrics 06/08/14 07/18/14 Caitie Godinez DO PCP - General Internal Medicine 07/19/14 11/30/14 Caitie Godinez DO PCP - General Internal Medicine 12/01/14 11/23/21 [facility] PCP - General Internal Medicine 11/24/21 12/25/21 Mima Morley MD, MD PCP - General Internal Medicine 12/26/21 documented as of this encounter
--- OUTSIDE RECORDS SUMMARY | 2024-09-01 12:38 | XMS_ITS | Encounter Summary ---
Author Organization [facility] Address [address] [place] [address] Care Team Providers Care Lamp Shades Supervisor Name Role Phone Caitie Godinez DO Primary Care Pro vider Unavailable [facility], Pcp Primary Care Provider Mima Evangelista Md, MD Primary Care Provider Unavailable Encounter Details Date Type Department Care Team Description 08/25/2018 Chemistry Instructor Report Medical Records [address] [place] [address] Faviola Abraham MD Social History Tobacco Use [...] on filedocumented in this encounter Care Teams Lamp Shades Supervisor Relationship Specialty Start Date End Date Caitie Godinez DO PCP - General Internal Medicine 12/01/14 11/23/21 Ann, Pcp PCP - General Internal Medicine 11/24/21 12/25/21 Mima Morley MD, MD PCP - General Internal Medicine 12/26/21 documented as of this encounter
--- OUTSIDE RECORDS SUMMARY | 2024-09-01 12:38 | XMS_ITS | Encounter Summary ---
Author Organization [facility] Address [address] [place] [address] Care Team Providers Care Spring Fitter Helper Name Role Phone Caitie Godinez DO Primary Care Pro vider Unavailable [facility], Pcp Primary Care Provider Mima Evangelista Md, MD Primary Care Provider Unavailable Encounter Details Date Type Department Care Team Description 06/17/2017 District Representative Report Medical Records [address] [place] [address] Faviola Abraham MD Social History Tobacco Use [...] on filedocumented in this encounter Care Teams Spring Fitter Helper Relationship Specialty Start Date End Date Caitie Godinez DO PCP - General Internal Medicine 12/01/14 11/23/21 Ann, Pcp PCP - General Internal Medicine 11/24/21 12/25/21 Mima Morley MD, MD PCP - General Internal Medicine 12/26/21 documented as of this encounter
--- OUTSIDE RECORDS SUMMARY | 2024-09-01 12:38 | XMS_ITS | Encounter Summary ---
Author Organization [facility] Address [address] [place] [address] Care Team Providers Care Grid Casting Machine Operator Helper Name Role Phone Caitie Godinez DO Primary Care Pro vider Unavailable Rosa Narvaez MD Primary Care Provider Unavailab le Rosa Isela ChrisoCaitie DO Primary Care Pro vider Unavailable Rosa Isela Colmohinio, Caitie DO Primary Care Pro vider Unavailable [facility], Pcp Primary Care Provider UnavailMima Izquierdo Md, MD Primary Care Provider Unavailable Encounter Details Date Type Department Care Team Description 03/23/2014 Release of Information Medical Records [address] [place] [id number] Abstract, Provider Social History Tobacco Use Types Packs/Day Years [...] on filedocumented in this encounter Care Teams Grid Casting Machine Operator Helper Relationship Specialty Start Date End Date Caitie Godinez DO PCP - General Internal Medicine 10/19/13 06/07/14 Rosa Narvaez MD PCP - General Pediatrics 06/08/14 07/18/14 Caitie Godinez DO PCP - General Internal Medicine 07/19/14 11/30/14 Caitie Godinez DO PCP - General Internal Medicine 12/01/14 11/23/21 [facility], Pcp PCP - General Internal Medicine 11/24/21 12/25/21 Mima Morley MD, MD PCP - General Internal Medicine 12/26/21 documented as of this encounter
--- OUTSIDE RECORDS SUMMARY | 2024-09-01 12:38 | XMS_ITS | Encounter Summary ---
Author Organization [facility] Address [address] [place] [address] Care Team Providers Care Shop Welder Name Role Phone Caitie Godinez DO Primary Care Pro vider Unavailable [facility], Pcp Primary Care Provider Mima Evangelista Md, MD Primary Care Provider Unavailable Encounter Details Date Type Department Care Team Description 02/22/2016 Transfer Records Medical Records [address] [place] [address] Abstract, Provider Social History Tobacco Use Types [...] on filedocumented in this encounter Care Teams Shop Welder Relationship Specialty Start Date End Date Caitie Godinez DO PCP - General Internal Medicine 12/01/14 11/23/21 Ann, Pcp PCP - General Internal Medicine 11/24/21 12/25/21 Mima Morley MD, MD PCP - General Internal Medicine 12/26/21 documented as of this encounter
--- OUTSIDE RECORDS SUMMARY | 2024-09-01 12:38 | XMS_ITS | Encounter Summary ---
Author Organization [facility] Address [address] [place] [address] Care Team Providers Care Food Products Tester Name Role Phone Caitie Godinez DO Primary Care Pro vider Unavailable [facility], Pcp Primary Care Provider Mima Evangelista Md, MD Primary Care Provider Unavailable Encounter Details Date Type Department Care Team Description 05/15/2018 Kettle Fry Cook Operator Report Medical Records [address] [place] [address] Faviola Abraham MD Social History Tobacco Use [...] on filedocumented in this encounter Care Teams Food Products Tester Relationship Specialty Start Date End Date Caitie Godinez DO PCP - General Internal Medicine 12/01/14 11/23/21 Ann, Pcp PCP - General Internal Medicine 11/24/21 12/25/21 Mima Morley MD, MD PCP - General Internal Medicine 12/26/21 documented as of this encounter
--- OUTSIDE RECORDS SUMMARY | 2024-09-01 12:38 | XMS_ITS | Clinical Summary ---
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[facility]) DX:G rand mal seizure ([facility]); COMMENT: x 1 Asthma DX:Asthma Developmental delay DX:Developme ntal delay 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; COMMENT: Dr Abraham Migraine without aura 02/02/2021 DX:Migrain e without aura Seizure disorder ([facility]) DX:Se izure disorder ([facility]); COMMENT: x 1 Family History Medical History [...] Documents on File Type Date Recorded Patient Small Business Banking Officer Expl anation Health Care Decision (hx) 04/22/2019 AD NELSON DIRECTIVE Care Teams Engineering Patternmaker Relationship Specialty Start Date End Date Mima Morley MD [address] [facility] [place] [address] PCP - General Internal Medicine 12/26/21
--- OUTSIDE RECORDS SUMMARY | 2024-09-01 12:38 | XMS_ITS | Encounter Summary ---
Author Organization [facility] Address [address] [place] [address] Care Team Providers Care Fight Manager Name Role Phone Caitie Godinez DO Primary Care Pro vider Unavailable [facility], Pcp Primary Care Provider Mima Evangelista Md, MD Primary Care Provider Unavailable Reason for Visit * Reason Onset Date Comments Form 06/14/2016 Encounter Details Date Type Department Care Team Description 06/14/2016 Telephone Adult Medicine [address] [address] Caitie Godinez, Form Social History Tobacco Use Types Packs/Day Years [...] encounter Miscellaneous Notes * Telephone Encounter - Radha Li - 06/28/2016 8:54 AM EST Patient's mom is at the office asking about form. 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 She would like this faxed over as soon as possible please. * Telephone Encounter - Snehal Silveira M.A. - 06/21/2016 1:29 PM EST Form has been filled out and is going to be sent to Dr infante for signature . * Telephone Encounter - Radha Li - 06/14/2016 9:37 AM EST If patient presents with the one of the forms directly below the direct patient with their forms toMedical Records to be completed by KATLYN. All REPLACED BY [facility] disability forms ONLY All Cooker Operator requests for Worker's Compensation Motor vehicle accident [facility] Elder Care/[facility] Physical forms for long-term housing Life insurance FORMS TO BE COMPLETED IN THE PRACTICE: Type of form: [employer] Application Release of information form ( all sections) has been completed and Signed.YES If this form is for the Registry of Motor Vechicles for a handicap placard or plate is the patient go to be: N/A -not a Registry form Is the patient still driving? For what medical problem does the patient need this form completed? Patient Active Problem List Diagnosis Code ??? Asthma J45.909 ??? Grand mal seizure G40.409 ??? Seasonal allergies J30.2 ??? Developmental delay R62.50 ??? Acne L70.9 Is patients name on the form? YES Is the patients portion (demographics) of the form completed? YES Did the patient sign the form? YES Which provider is form to be completed by? Caitie Burgess Patient requesting the form be: Fax to other office/MD at fax # [phone] If form is not to be picked up by patient has patient been informed that RELEASE OF INFO form must be signed by them for alternate person to machine operator hop picker form? NO Patient has been informed that completion will be in 7-10 business days: YES documented in this encounter Plan of Treatment Not on file documented as of this encounter Visit Diagnoses Not on filedocumented in this encounter Care Teams Fight Manager Relationship Specialty Start Date End Date Caitie Godinez DO PCP - General Internal Medicine 12/01/14 11/23/21 [facility] Pcp PCP - General Internal Medicine 11/24/21 12/25/21 Mima Morley MD, MD PCP - General Internal Medicine 12/26/21 documented as of this encounter
--- OUTSIDE RECORDS SUMMARY | 2024-09-01 12:38 | XMS_ITS | Encounter Summary ---
Author Organization [facility] Address [address] [place] [address] Care Team Providers Care Internet Merchant Name Role Phone Caitie Godinez DO Primary Care Pro vider Unavailable [facility], Pcp Primary Care Provider Mima Evangelista Md, MD Primary Care Provider Unavailable Encounter Details Date Type Department Care Team Description 10/20/2019 Shop Lead Report Medical Records [address] [place] [address] Faviola Abraham MD Social History Tobacco Use [...] on filedocumented in this encounter Care Teams Internet Merchant Relationship Specialty Start Date End Date Caitie Godinez DO PCP - General Internal Medicine 12/01/14 11/23/21 Ann, Pcp PCP - General Internal Medicine 11/24/21 12/25/21 Mima Morley MD, MD PCP - General Internal Medicine 12/26/21 documented as of this encounter
--- OUTSIDE RECORDS SUMMARY | 2024-09-01 12:38 | XMS_ITS | Encounter Summary ---
Author Organization [facility] Address [address] [place] [address] Care Team Providers Care Slot Host Name Role Phone Caitie Godinez DO Primary Care Pro vider Unavailable [facility], Pcp Primary Care Provider Mima Evangelista Md, MD Primary Care Provider Unavailable Encounter Details Date Type Department Care Team Description 04/12/2015 Release of Information Medical Records [address] [place] [address] Abstract, Provider Social History Tobacco Use Types [...] on filedocumented in this encounter Care Teams Slot Host Relationship Specialty Start Date End Date Caitie Godinez DO PCP - General Internal Medicine 12/01/14 11/23/21 Ann, Pcp PCP - General Internal Medicine 11/24/21 12/25/21 Mima Morley MD, MD PCP - General Internal Medicine 12/26/21 documented as of this encounter
--- OUTSIDE RECORDS SUMMARY | 2024-09-01 12:38 | XMS_ITS | Encounter Summary ---
Author Organization [facility] Address [address] [place] [address] Care Team Providers Care Infusion Nurse Name Role Phone Caitie Godinez DO Primary Care Pro vider Unavailable [facility], Pcp Primary Care Provider Mima Evangelista Md, MD Primary Care Provider Unavailable Encounter Details Date Type Department Care Team Description 06/23/2018 Diagnostic Sales Specialist Report Medical Records [address] [place] [address] Faviola Abraham MD Social History Tobacco Use [...] on filedocumented in this encounter Care Teams Infusion Nurse Relationship Specialty Start Date End Date Caitie Godinez DO PCP - General Internal Medicine 12/01/14 11/23/21 Ann, Pcp PCP - General Internal Medicine 11/24/21 12/25/21 Mima Morley MD, MD PCP - General Internal Medicine 12/26/21 documented as of this encounter
== END 2024-09-01 11:39 | disposition home or self-care (01) ==
LOC: HO.HWS 10:37
PROVIDERS: PCP Internal Medicine; Visit Provider Advanced Practice Midwife
DX: Z01.419 Encounter for gynecological examination (general) (routine) without abnormal findings (principal); Z30.42 Encounter for surveillance of injectable contraceptive
CPT/HCPCS: 99395; 99459

== ENCOUNTER → 2024-09-01 10:37 | Outpatient (BNVA) | payer OTHER, SELFPAY | PROVIDERS: PCP Internal Medicine; Visit Provider Advanced Practice Midwife | DX: Z01.419 Encounter for gynecological examination (general) (routine) without abnormal findings (principal); Z30.42 Encounter for surveillance of injectable contraceptive | CPT/HCPCS: 99395; 99459 ==

== ENCOUNTER 2024-09-03 09:10 | Day surgery (SDC) | payer OTHER, SELFPAY ==
[2024-09-01 14:27] VITALS: BMI 28.3
[2024-09-01 14:33] VITALS: BMI 28.3
--- OUTSIDE RECORDS SUMMARY | 2024-09-02 12:04 | XMS_ITS | Encounter Summary ---
Author Organization [facility] Address [address] [place] [address] Care Team Providers Care Senior Cognos Developer Name Role Phone Caitie Godinez DO Primary Care Pro vider Unavailable [facility], Pcp Primary Care Provider Mima Evangelista Md, MD Primary Care Provider Unavailable Encounter Details Date Type Department Care Team Description 07/23/2017 Nozzle Tender Report Medical Records [address] [place] [address] Faviola Abraham MD Social History Tobacco Use [...] on filedocumented in this encounter Care Teams Senior Cognos Developer Relationship Specialty Start Date End Date Caitie Godinez DO PCP - General Internal Medicine 12/01/14 11/23/21 Ann, Pcp PCP - General Internal Medicine 11/24/21 12/25/21 Mima Morley MD, MD PCP - General Internal Medicine 12/26/21 documented as of this encounter
--- OUTSIDE RECORDS SUMMARY | 2024-09-02 12:04 | XMS_ITS | Encounter Summary ---
Author Organization [facility] Address [address] [place] [address] Care Team Providers Care Forensic Engineer Name Role Phone Caitie Godinez DO Primary Care Pro vider Unavailable [facility], Pcp Primary Care Provider Mima Evangelista Md, MD Primary Care Provider Unavailable Encounter Details Date Type Department Care Team Description 03/29/2021 Licensing Services Clerk Report Medical Records [address] [place] [address] Faviola Abraham MD Social History Tobacco Use [...] on filedocumented in this encounter Care Teams Forensic Engineer Relationship Specialty Start Date End Date Caitie Godinez DO PCP - General Internal Medicine 12/01/14 11/23/21 Ann, Pcp PCP - General Internal Medicine 11/24/21 12/25/21 Mima Morley MD, MD PCP - General Internal Medicine 12/26/21 documented as of this encounter
--- OUTSIDE RECORDS SUMMARY | 2024-09-02 12:04 | XMS_ITS | Encounter Summary ---
Author Organization [facility] Address [address] [place] [address] Care Team Providers Care Information Resource Consultant Name Role Phone Caitie Godinez DO Primary Care Pro vider Unavailable [facility], Pcp Primary Care Provider Mima Evangelista Md, MD Primary Care Provider Unavailable Encounter Details Date Type Department Care Team Description 04/05/2017 Release of Information Medical Records [address] [place] [address] Abstract, Provider Social History Tobacco Use Types [...] on filedocumented in this encounter Care Teams Information Resource Consultant Relationship Specialty Start Date End Date Caitie Godinez DO PCP - General Internal Medicine 12/01/14 11/23/21 Ann, Pcp PCP - General Internal Medicine 11/24/21 12/25/21 Mima Morley MD, MD PCP - General Internal Medicine 12/26/21 documented as of this encounter
--- OUTSIDE RECORDS SUMMARY | 2024-09-02 12:04 | XMS_ITS | Encounter Summary ---
Author Organization [facility] Address [address] [place] [address] Care Team Providers Care Network Developer Name Role Phone Caitie Godinez DO Primary Care Pro vider Unavailable [facility], Pcp Primary Care Provider Mima Evangelista Md, MD Primary Care Provider Unavailable Encounter Details Date Type Department Care Team Description 02/22/2016 Transfer Records Medical Records [address] [place] [address] Abstract, Provider Social History Tobacco Use Types [...] on filedocumented in this encounter Care Teams Network Developer Relationship Specialty Start Date End Date Caitie Godinez DO PCP - General Internal Medicine 12/01/14 11/23/21 Ann, Pcp PCP - General Internal Medicine 11/24/21 12/25/21 Mima Morley MD, MD PCP - General Internal Medicine 12/26/21 documented as of this encounter
--- OUTSIDE RECORDS SUMMARY | 2024-09-02 12:04 | XMS_ITS | Encounter Summary ---
Author Organization [facility] Address [address] [place] [address] Care Team Providers Care Rewrite Editor Name Role Phone Caitie Godinez DO Primary Care Pro vider Unavailable [facility], Pcp Primary Care Provider Mima Evangelista Md, MD Primary Care Provider Unavailable Encounter Details Date Type Department Care Team Description 04/24/2021 Retail Advisor Report Medical Records [address] [place] [address] Faviola Abraham MD Social History Tobacco Use [...] on filedocumented in this encounter Care Teams Rewrite Editor Relationship Specialty Start Date End Date Caitie Godinez DO PCP - General Internal Medicine 12/01/14 11/23/21 Ann, Pcp PCP - General Internal Medicine 11/24/21 12/25/21 Mima Morley MD, MD PCP - General Internal Medicine 12/26/21 documented as of this encounter
--- OUTSIDE RECORDS SUMMARY | 2024-09-02 12:04 | XMS_ITS | Clinical Summary ---
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/[facility]) DX:G rand mal seizure ([facility]); COMMENT: x 1 Asthma DX:Asthma Developmental delay DX:Developme ntal delay 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; COMMENT: Dr Abraham Migraine without aura 02/02/2021 DX:Migrain e without aura Seizure disorder ([facility]) DX:Se izure disorder ([facility]); COMMENT: x 1 Family History Medical History [...] Documents on File Type Date Recorded Patient Gm Expl anation Health Care Decision (hx) 04/22/2019 AD NELSON DIRECTIVE Care Teams Enterprise Application Administrator Relationship Specialty Start Date End Date Mima Morley MD [address] [facility] [place] [address] PCP - General Internal Medicine 12/26/21
--- OUTSIDE RECORDS SUMMARY | 2024-09-02 12:04 | XMS_ITS | Encounter Summary ---
Author Organization [facility] Address [address] [place] [address] Care Team Providers Care Case Packer And Sealer Name Role Phone Caitie Godinez DO Primary Care Pro vider Unavailable [facility], Pcp Primary Care Provider Mima Evangelista Md, MD Primary Care Provider Unavailable Encounter Details Date Type Department Care Team Description 03/06/2018 Radiological Engineer Report Medical Records [address] [place] [address] Faviola Abraham MD Social History Tobacco Use [...] on filedocumented in this encounter Care Teams Case Packer And Sealer Relationship Specialty Start Date End Date Caitie Godinez DO PCP - General Internal Medicine 12/01/14 11/23/21 Ann, Pcp PCP - General Internal Medicine 11/24/21 12/25/21 Mima Morley MD, MD PCP - General Internal Medicine 12/26/21 documented as of this encounter
--- OUTSIDE RECORDS SUMMARY | 2024-09-02 12:04 | XMS_ITS | Encounter Summary ---
Author Organization [facility] Address [address] [place] [address] Care Team Providers Care Automotive Finance Manager Name Role Phone Caitie Godinez DO Primary Care Pro vider Unavailable Rosa Narvaez MD Primary Care Provider Unavailab le Caitie Godinez DO Primary Care Pro vider Unavailable Caitie Godinez DO Primary Care Pro vider Unavailable On License Of [facility], Pcp Primary Care Provider UnavailMima Izquierdo Md, MD Primary Care Provider Unavailable Reason for Visit * Reason Onset Date Comments Faxed Order 12/08/2013 Encounter Details Date Type Department Care Team Description 12/08/2013 Telephone Adult [address] [address] Caitie Godinez DO Faxed Order Social History Tobacco Use Types Packs/Day Years Used Date Smoking Tobacco: Never Assessed Sex Assigned at Date Recorded Not on file Job Start Date Occupation Industry Not on file Not on file Not on file documented as of this encounter Miscellaneous Notes * Telephone Encounter - Dasha Cavazos - 12/08/2013 2:37 PM EDT Plan of care for Dr Natarajan's signature documented in this encounter Plan of Treatment Not on file documented as of this encounter Visit Diagnoses Not on filedocumented in this encounter Care Teams Automotive Finance Manager Relationship Specialty Start Date End Date Caitie Godinez DO PCP - General Internal Medicine 10/19/13 06/07/14 Rosa Narvaez MD PCP - General Pediatrics 06/08/14 07/18/14 Caiite Godinez DO PCP - General Internal Medicine 07/19/14 11/30/14 Caitie Godinez DO PCP - General Internal Medicine 12/01/14 11/23/21 On License Of [facility], Pcp PCP - General Internal Medicine 11/24/21 12/25/21 Mima Morley MD, PCP - General Internal Medicine 12/26/21 documented as of this encounter
--- OUTSIDE RECORDS SUMMARY | 2024-09-02 12:04 | XMS_ITS | Encounter Summary ---
Author Organization [facility] Address [address] [place] [address] Care Team Providers Care Public Service Director Name Role Phone Caitie Godinez DO Primary Care Pro vider Unavailable [facility], Pcp Primary Care Provider Mima Evangelista Md, MD Primary Care Provider Unavailable Encounter Details Date Type Department Care Team Description 06/17/2017 Generator Worker Report Medical Records [address] [place] [address] Faviola Abraham MD Social History Tobacco Use [...] filedocumented in this encounter Care Teams Public Service Director Relationship Specialty Start Date End Date Caitie Godinez DO PCP - General Internal Medicine 12/01/14 11/23/21 Ann, Pcp PCP - General Internal Medicine 11/24/21 12/25/21 Mima Morley MD, MD PCP - General Internal Medicine 12/26/21 documented as of this encounter
--- OUTSIDE RECORDS SUMMARY | 2024-09-02 12:04 | XMS_ITS | Encounter Summary ---
Author Organization [facility] Address [address] [place] [address] Care Team Providers Care Informatica Mdm Developer Name Role Phone Caitie Godinez DO Primary Care Pro vider Unavailable [facility], Pcp Primary Care Provider Mima Evangelista Md, MD Primary Care Provider Unavailable Encounter Details Date Type Department Care Team Description 08/25/2018 Client Partner Report Medical Records [address] [place] [address] Faviola Abraham MD Social History Tobacco Use [...] on filedocumented in this encounter Care Teams Informatica Mdm Developer Relationship Specialty Start Date End Date Caitie Godinez DO PCP - General Internal Medicine 12/01/14 11/23/21 Ann, Pcp PCP - General Internal Medicine 11/24/21 12/25/21 Mima Morley MD, MD PCP - General Internal Medicine 12/26/21 documented as of this encounter
--- OUTSIDE RECORDS SUMMARY | 2024-09-02 12:04 | XMS_ITS | Encounter Summary ---
Author Organization [facility] Address [address] [place] [address] Care Team Providers Care Cleaner And Polisher Name Role Phone Caitie Godinez DO Primary Care Pro vider Unavailable Community, Pcp Primary Care Provider Mima Evangelista Md, MD Primary Care Provider Unavailable Encounter Details Date Type Department Care Team Description 03/29/2015 Telephone Adult Medicine [address] [address] Caitie Godinez DO Social History Tobacco Use Types Packs/Day Years [...] encounter Miscellaneous Notes * Telephone Encounter - Criselda Mcrae M.A. - 03/31/2015 3:27 PM EDT I spoke with pt's mother. She needs a late afternoon appt due to her work schedule. She tells me that pt can go in a vehicle without using dramamine, however she gets headaches if she does not take the dramamine. Mom is open to her being referred to a specialist if you feel she needs to * Telephone Encounter - Caitie Mccormick DO - 03/31/2015 6:03 AM EDT I'm concerned about why she's needed this terminal block assembler, has she been evaluated in past? If so then we will ask mom to request records for us in stead of ov * Telephone Encounter - Criselda Mcrae M.A. - 03/30/2015 3:18 PM EDT When she takes dramamine her motion sickness sx resolve, mom is asking if it is ok for her to take it daily-unable to bring pt is for ov due to mothers work schedule * Telephone Encounter - Caitie Mccormick DO - 03/29/2015 10:54 PM EDT I'm wondering if she has motion sickness if its been evaluated in the past * Telephone Encounter - Sera HalePCaroleNCarole - 03/29/2015 5:01 PM EDT Spoke to mother pt present. She sts her dtr has motion sickness almost every day. 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 Gets nausea but no vomiting. No dizziness,cp,sob,v/d. No abd pain,headache,fevers. Takes only inhalers. Had grand mal seizure at age 14. Has food and fluid(breakfast) before going to the program. Mother has been giving her dramamine almost daily and it helps. Wants to know if it's ok to give daily. Unable to come for appt d/t mom's work schedule. Pt does not drive. Advised to booked some time to see pcp. msg to dr Natarajan to advise daily intake of the dramamine. * Telephone Encounter - Amanda Lezama - 03/29/2015 4:34 PM EDT CALL AFTER 3PM Symptoms patient is presenting: goes to a day program on the bus she gets car sick her mother is asking if there is some medicaion she can take to help with this If pain or injury related was it due to an accident at work or from a motor vehicle accident? NO If yes, gather 3rd constitution party insurance information Date of accident/Injury: How long has patient had these symptoms?: TODAY PCP: Caitie Burgess Payor: LATOYA/O FFS / Plan: YOSEF BONNER $15 / Product Type: Liveroof [place] [id number]-[id number]-Ductriy documented in this encounter Plan of Treatment Not on file documented as of this encounter Visit Diagnoses Not on filedocumented in this encounter Care Teams Cleaner And Polisher Relationship Specialty Start Date End Date Caitie Godinez DO PCP - General Internal Medicine 12/01/14 11/23/21 [facility], Pcp PCP - General Internal Medicine 11/24/21 12/25/21 Mima Morley MD, MD PCP - General Internal Medicine 12/26/21 documented as of this encounter
--- OUTSIDE RECORDS SUMMARY | 2024-09-02 12:04 | XMS_ITS | Encounter Summary ---
Author Organization [facility] Address [address] [place] [address] Care Team Providers Care Box Fabricator Name Role Phone Caitie Godinez DO Primary Care Pro vider Unavailable Community, Pcp Primary Care Provider Mima Evangelista Md, MD Primary Care Provider Unavailable Encounter Details Date Type Department Care Team Description 04/12/2015 Release of Information Medical Records [address] [place] [id number] Abstract, Provider Social History Tobacco Use Types [...] on filedocumented in this encounter Care Teams Box Fabricator Relationship Specialty Start Date End Date Caitie Godinez DO PCP - General Internal Medicine 12/01/14 11/23/21 [facility], Pcp PCP - General Internal Medicine 11/24/21 12/25/21 Mima Morley MD, MD PCP - General Internal Medicine 12/26/21 documented as of this encounter
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
--- OUTSIDE RECORDS SUMMARY | 2024-09-02 12:04 | XMS_ITS | Encounter Summary ---
Author Organization [facility] Address [address] [place] [address] Care Team Providers Care Files Supervisor Name Role Phone Caitie Godinez DO Primary Care Pro vider Unavailable Community, Pcp Primary Care Provider Mima Evangelista Md, MD Primary Care Provider Unavailable Encounter Details Date Type Department Care Team Description 09/15/2015 Release of Information Medical Records [address] [place] [id number] Abstract, Provider Social History Tobacco Use Types [...] on filedocumented in this encounter Care Teams Files Supervisor Relationship Specialty Start Date End Date Caitie Godinez DO PCP - General Internal Medicine 12/01/14 11/23/21 [facility], Pcp PCP - General Internal Medicine 11/24/21 12/25/21 Mima Morley MD, MD PCP - General Internal Medicine 12/26/21 documented as of this encounter
--- OUTSIDE RECORDS SUMMARY | 2024-09-02 12:04 | XMS_ITS | Encounter Summary ---
Author Organization [facility] Address [address] [place] [address] Care Team Providers Care Sand Cleaning Machine Operator Name Role Phone Caitie Godinez DO Primary Care Pro vider Unavailable [facility], Pcp Primary Care Provider Mima Evangelista Md, MD Primary Care Provider Unavailable Encounter Details Date Type Department Care Team Description 04/17/2018 Emergency Registrar Report Medical Records [address] [place] [address] Faviola Abraham MD Social History Tobacco Use [...] on filedocumented in this encounter Care Teams Sand Cleaning Machine Operator Relationship Specialty Start Date End Date Caitie Godinez DO PCP - General Internal Medicine 12/01/14 11/23/21 [facility], Pcp PCP - General Internal Medicine 11/24/21 12/25/21 Mima Morley MD, MD PCP - General Internal Medicine 12/26/21 documented as of this encounter
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
--- OUTSIDE RECORDS SUMMARY | 2024-09-02 12:04 | XMS_ITS | Encounter Summary ---
Author Organization [facility] Address [address] [place] [address] Care Team Providers Care Java Lead Engineer Name Role Phone Caitie Godinez DO Primary Care Pro vider Unavailable [facility], Pcp Primary Care Provider Mima Evangelista Md, MD Primary Care Provider Unavailable Encounter Details Date Type Department Care Team Description 03/23/2019 Broiler Manager Report Medical Records [address] [place] [address] Faviola Abraham MD Social History Tobacco Use [...] on filedocumented in this encounter Care Teams Java Lead Engineer Relationship Specialty Start Date End Date Caitie Godinez DO PCP - General Internal Medicine 12/01/14 11/23/21 [facility], Pcp PCP - General Internal Medicine 11/24/21 12/25/21 Mima Morley MD, MD PCP - General Internal Medicine 12/26/21 documented as of this encounter
--- NOTE | 2024-09-02 12:31 | HO.ANESPROP2 ---
Documented by User: Es Chadwick NP 09/02/24 12:32 HPI - Anesthesia Eval Consult details Narrative: 29yo F for Upper Endoscopy Cognitive delay - legal guardian for consents [facility] Active Problems Active Problems: All Active Problems Surveillance for Depo-Provera contraception (Acute) Encounter for well woman exam with routine gynecological exam (Acute) History of seizure disorder (Acute) Cognitive impairment (Acute) On depo medroxyprogesterone acetate for contraception (Acute ~05/04/24) Nausea and vomiting (Acute) Chronic GERD (Acute) History of vitamin D deficiency (Acute) Environmental allergies (Acute) Mild intermittent asthma in adult without complication (Acute) Past Medical History Medical History Surveillance for Depo-Provera contraception Encounter for well woman exam with routine gynecological exam On depo medroxyprogesterone acetate for contraception (~05/04/24) Heartburn Chronic GERD History of vitamin D deficiency History of seizure disorder Cognitive developmental delay Environmental allergies Mild intermittent asthma in adult without complication Family History Family History Father No problems noted. Mother Diabetes mellitus HTN (hypertension) Substance use disorder Mental health disorder Maternal Aunt Substance use disorder Sister No problems noted. Maternal Grandmother Substance use disorder Surgical History Surgical History No pertinent past surgical history Social History Social History Housing: House Housing Other:: Private home Alcohol intake: never Patient Tobacco Use Status: Never used Tobacco e-Cigarette/Vaping Use: Never Used Use of substances other than those prescribed or required for medical reasons: No Are you DNR?: No Advance Directives: No Advance Directives Information Provided: Yes service: No Current occupational status: employed Cognitive needs: No Hearing needs: No Vision needs: Yes Meds Allergies Allergy/AdvReac Type Severity Reaction Status Date / Time No Known Allergies Allergy Verified 09/03/24 10:07 Home Medications ?Medication ?Instructions ?Recorded ?Confirmed ?Last Taken ?Type acetaminophen 325 mg capsule 325 mg PO QID PRN 08/20/22 08/20/22 Unknown History Exam Height,Weight and Vital Signs: Height 5 ft 6 in Weight 79.577 kg Assessment and Plan Assessment Anesthesia Assessment: Chart Reviewed Documented by User: Sybil Rizvi MD 09/03/24 10:20 [facility] Past Medical History Medical History Surveillance for Depo-Provera contraception Encounter for well woman exam with routine gynecological exam On depo medroxyprogesterone acetate for contraception (~05/04/24) Heartburn Chronic GERD History of vitamin D deficiency History of seizure disorder Cognitive developmental delay Environmental allergies Mild intermittent asthma in adult without complication Family History Family History Father No problems noted. Mother Diabetes mellitus HTN (hypertension) Substance use disorder Mental health disorder Maternal Aunt Substance use disorder Sister No problems noted. Maternal Grandmother Substance use disorder Family history of problems with anesthesia: No Surgical History Surgical History No pertinent past surgical history History of Problems with Anesthesia: No Social History Social History Housing: House Housing Other:: Private home Alcohol intake: never Patient Tobacco Use Status: Never used Tobacco e-Cigarette/Vaping Use: Never Used Use of substances other than those prescribed or required for medical reasons: No Are you DNR?: No Advance Directives: No Advance Directives Information Provided: Yes service: No Current occupational status: employed Cognitive needs: No Hearing needs: No Vision needs: Yes Meds Allergies Allergy/AdvReac Type Severity Reaction Status Date / Time No Known Allergies Allergy Verified 09/03/24 10:07 Home Medications ?Medication ?Instructions ?Recorded ?Confirmed ?Last Taken ?Type acetaminophen 325 mg capsule 325 mg PO QID PRN 08/20/22 08/20/22 Unknown History Exam Airway Mallampati Class: II TM Dist: >3cm Neck ROM: Full Assessment and Plan Assessment Anesthesia Assessment: Anesthesia Plan Discussed Final Anesthetic Review Family History of Problems with Anesthesia: No History of Problems with Anesthesia: No NPO: Yes ASA Class: II Final Preanesthetic Review: No Changes in Pt Med Stat, Meds/Allgs Chart Reviewed, Consent Obtained/Reviewed and Anes Risks/Benef Reviewed Patient Risk: Low Procedure Risk: Low Anesthetic Plan Anesthetic Plan: TIVA Disposition: Standard PACU
[2024-09-03 09:40] VITALS: BMI 28.1
--- NOTE | 2024-09-03 09:47 | MHC.SHP ---
Pre-Procedural Eval Section A - 24 Hr Update-Section A only Date of Service: 09/03/24 Section B - Complete if H&P > 30 days Chief Complaint: gerd Details of Present Illness: On depo medroxyprogesterone acetate for contraception (~05/04/24) Heartburn Chronic GERD History of vitamin D deficiency History of seizure disorder Cognitive developmental delay Environmental allergies Mild intermittent asthma in adult without complication Surgical History No pertinent past surgical history Present Medications: see Short Stay Collaborative assessment Allergies: Allergies Allergy/AdvReac Type Severity Reaction Status Date / Time No Known Allergies Allergy Verified 09/01/24 10:40 Review of Systems Review of Systems Comment: Ten point ROS negative Exam Exam Comment: Gen appear: No acute distress HEENT: no icterus Chest: No overt resp distress Abd: soft, nontender, nondistended Psych: Stable affect, answering questions appropriately Neuro: A/Ox3 noted to move all extremities spontaneously Ext: no peripheral edema Plan Diagnosis/Plan: Unchanged I have reviewed the history and physical and performed a pertinent physical examination on my patient. No changes have occurred unless specified. Consent taken over the phone from the guardian. Time Spent With Patient Time: Total time managing care of this patient today ____ minutes.
[2024-09-03 09:48] LABS: UPreg QC Valid YES; Urine Pregnancy NEGATIVE (NEGATIVE)
[2024-09-03 09:50] VITALS: BP 130/81; PULSE 101; RESP 15; TEMP 36.9; O2SAT 96
[2024-09-03] MEDS: Lactated Ringers 1,000 ML 100 ML IVCONT (10:05)
[2024-09-03 11:00] VITALS: BP 128/75; PULSE 95; RESP 18; TEMP 37.3; O2SAT 96
[2024-09-03 11:15] VITALS: BP 130/68; PULSE 92; RESP 18; TEMP 36.6; O2SAT 96
[2024-09-03 11:25] VITALS: BP 125/85; PULSE 86; RESP 20; TEMP 37.2; O2SAT 96
--- NOTE | 2024-09-03 11:50 | P.OP_ITS ---
Operative Note Operative Note Date of Service: 09/03/24 Narrative: Procedure: Esophagogastroduodenoscopy Endoscopist: Yuliya Pretty MD Indication: GERD, abnormal UGIS Anesthesia Provider: Dr Sybil Rizvi Anesthesia Type: MAC ?? EGD Procedure:?? The procedure, indications, preparation and potential complications were reviewed with the patient as well as her legal guardian who indicated understanding and gave informed consent over the phone to proceed. A physical exam was performed. The endoscope was introduced through the mouth, and advanced to the second part of duodenum. The mucosa was carefully examined on slow withdrawal of the endoscope. The patient tolerated the procedure well. There were no immediate complications.? ? EGD Findings:? * Esophagus:? Normal mucosa noted in the entire esophagus. The Z line was at 37 cm. Middle and lower esophagus forceps biopsies were obtained to rule out eosinophilic esophagitis. * Stomach:? Mild focal erythema noted in the distal body of the stomach. A few polyps noted in the fundus. Cold forceps polypectomy was performed for the larger polyp. Retroflexion was performed in the cardia. Random cold forceps gastric biopsies were taken to rule out H Pylori infection. * Duodenum:? Normal mucosa was noted in the whole of the examined duodenum. []Biopsies were taken from duodenal bulb and second portion of the duodenum to rule out celiac sprue. ? EGD Impressions:? * Normal esophagus (biopsy) * Gastric polyps (polypectomy) * Gastritis (biopsy) * Normal duodenum (biopsy) ?? Recommendations:?? * Follow biopsy results. Our office will call or send a letter with results within 7-10 days. * Can reduce anti-secretory therapy to single agent. Pantoprazole discontinued. . * If H pylori +, patient will be prescribed eradication therapy followed by test of cure. * Avoid NSAIDs. Above has been reviewed with the patient. Phone call was also placed to legal guardian Ms Carolyn Galvan and LVM re the same.
--- NOTE | 2024-09-03 12:06 | PC.NURSE ---
THIS RN TALKED WITH JONATHAN ZEE LISTED A SECONDARY CONTACT. PATIENT LIVES WITH HER. JONATHAN ZEE STATED PATIENT CAN SIGN FOR HERSELF. THIS RN ALSO GAVE A VERBAL REPORT TO JONATHAN ZEE OVER THE PHONE. HEALTHCARE PRACTITIONER ENCOUNTER FORM ALSO GIVEN TO PATIENT'S RIDE AFTER DR. ROBLES SIGNED FORM.
== END 2024-09-03 12:11 | disposition home or self-care (01) ==
PROVIDERS: Nurse Practitioner; PCP Internal Medicine; Visit Provider Internal Medicine
PROC: 0DJ08ZZ Inspection of Upper Intestinal Tract, Via Natural or Artificial Opening Endoscopic (ICD-10-PCS; CPT 43235; principal; 2024-09-03 11:20)
DX: K21.9 Gastro-esophageal reflux disease without esophagitis (principal); R11.2 Nausea with vomiting, unspecified; K29.50 Unspecified chronic gastritis without bleeding; K31.7 Polyp of stomach and duodenum; J45.20 Mild intermittent asthma, uncomplicated; R41.89 Other symptoms and signs involving cognitive functions and awareness; Z86.79 Personal history of other diseases of the circulatory system; Z79.899 Other long term (current) drug therapy
CPT/HCPCS: 43239; 81025; 88305; 88313; 88342; J2003; J2704

== ENCOUNTER → 2024-09-03 09:10 | Outpatient (BNV) | payer OTHER, SELFPAY | PROVIDERS: PCP Internal Medicine; Visit Provider Internal Medicine | DX: K21.9 Gastro-esophageal reflux disease without esophagitis (principal); R93.3 Abnormal findings on diagnostic imaging of other parts of digestive tract; K31.7 Polyp of stomach and duodenum; K29.70 Gastritis, unspecified, without bleeding | CPT/HCPCS: 43239; 43251 ==

== ENCOUNTER 2024-09-28 12:23 | Outpatient (AMB) | payer OTHER, SELFPAY ==
--- NOTE | 2024-09-28 12:46 | A.OFFPC_ITS ---
Vital Signs 09/28/24 12:47 Height 5 ft 6 in Weight 175 lb BMI 28.2 BP 116/70 Blood Pressure Location Rt brachial Position Sitting Respiration 16 Pulse 86 Pulse Source Pulse Oximeter Temp 98.3 F Temp Source Oral Pulse Oximetry (%) 99 Oxygen Delivery Method Room Air Intake Visit Reasons: PE Intake Note: Pt is here today for her PE: last papsmear 08/30/23 Allergies No Known Allergies Allergy (Verified 10/05/24 01:55) Medication List - Last Reconciled 10/05/24 by Mima Morley MD acetaminophen 325 mg PO QID PRN calcium carbonate (Tums) 200 mg PO BID PRN cetirizine 10 mg PO DAILY cholecalciferol (vitamin D3) 50 mcg PO DAILY famotidine 40 mg PO BEDTIME medroxyprogesterone 150 mg IM Q12W 3 months simethicone (Gas Relief (simethicone)) 125 mg PO TID Ventolin HFA 90 mcg/actuation (albuterol sulfate) 2 puffs inhalation Q6H PRN NS Tobacco use date assessed: 09/28/24 Dental Screening Dental Screen Date: 09/28/24 Did you have a dental visit in the last 12 months?: Yes Did you have a dental problem in the last 6 months where you did not have access to dental care?: No Was dental information given to patient?: Patient has dentist HPI PE HPI Details 29-year-old lady with history of chronic GERD, seizure disorder, cognitive impairment, and mild intermittent asthma and environmental allergies, here to for for physical exam. She is up-to-date with her cervical cancer screening, goes to [facility] for her routine Pap and pelvic exam last done 08/30/2023 with benign findings. She is currently on Depo-Provera for control. Patient states her asthma symptoms stable and well controlled on present treatment, rarely needing to use her albuterol inhaler. Heartburn symptoms however still persistent despite taking famotidine, still has a take occasional Tums to control symptoms. COUNTS INCLUDE 234 BEDS AT THE [facility] Medical History Encounter for well woman exam with routine gynecological exam Surveillance for Depo-Provera contraception Abnormal findings on esophagogastroduodenoscopy (EGD) On depo medroxyprogesterone acetate for contraception (~05/04/24) Heartburn Chronic GERD History of vitamin D deficiency History of seizure disorder Cognitive developmental delay Environmental allergies Mild intermittent asthma in adult without complication Surgical History No pertinent past surgical history Family History Father No problems noted. Mother Diabetes mellitus HTN (hypertension) Substance use disorder Mental health disorder Maternal Aunt Substance use disorder Sister No problems noted. Maternal Grandmother Substance use disorder Social History Housing: House Housing Other:: Private home Alcohol intake: never Patient Tobacco Use Status: Never used Tobacco e-Cigarette/Vaping Use: Never Used service: No Current occupational status: employed Cognitive needs: No Hearing needs: No Vision needs: Yes Questionnaire PHQ-9 Over the last 2 weeks, how often have you been bothered by any of the following problems? 1. Little interest or pleasure in doing things: not at all 2. Feeling down, depressed, or hopeless: not at all 3. Trouble falling or staying asleep, or sleeping too much: not at all 4. Feeling tired or having little energy: not at all 5. Poor appetite or overeating: not at all 6. Feeling bad about yourself - or that you are a failure or have let yourself or your family down: not at all 7. Trouble concentrating on things, such as reading the newspaper or watching television: not at all 8. Moving or speaking so slowly that other people could have noticed. Or the opposite - being so fidgety or restless that you have been moving around a lot more than usual: not at all 9. Thoughts that you would be better off or of hurting yourself in some way: not at all Total score: 0 Depression Screening Interpretation: Negative Depression Screening Done: Yes 57716 - PHQ-9 Billing: Yes Source: Developed by Drs. Peewee Medrano, Rebeca Frost, Armaan Red and colleagues, with an educational yo from [employer]. Thrive Questionnaire Date Thrive assessed: 09/28/24 I am a: Parent/Caregiver What is your living situation today?: I have a steady place to live Within the past 12 months, did the food you bought not last and you didn't have the money to get more?: Never true Within the past 12 months, did you worry whether your food would run out before you got money to buy more?: Never true Do you have trouble paying for medicines?: No Do you have trouble getting transportation to medical appointments?: No Do you have trouble paying your heating and electricity bill?: No Do you have trouble taking care of your child, family member or friend?: No Do you have trouble with day-to-day activities such as bathing, preparing meals, shopping, managing finances, etc.?: No Are you currently unemployed and looking for a job?: No Are you interested in more education?: No Please select the resources that you would like help with: None Currently or been in a relationship where the following occur: No concerns reported THRIVE Score: 0 AUDIT C Alcohol Use Questionnaire (AUDIT-C) 1. How often do you have a drink containing alcohol?: Never 3. How often do you have six or more drinks on one occasion?: Never Total Score: 0 PARKER-7 AMB Questionnaire PARKER-7 Date PARKER - 7 assessed: 09/28/24 Feeling nervous, anxious, or on edge: 0 = Not at all Not being able to stop or control worryin = Not at all Worrying too much about different things: 0 = Not at all Trouble relaxin = Not at all Being so restless that it is hard to sit still: 0 = Not at all Becoming easily annoyed or irritable: 0 = Not at all Feeling afraid as if something awful might happen: 0 = Not at all Total PARKER-7 score (0-4 normal; 5-9 mild; 10-14 moderate; 15-21 severe): 0 Source: Developed by Drs. Peewee Medrano, Rebeca Frost, Armaan Red and colleagues, with an educational yo from [employer]. Review of Systems Const All systems reviewed & are unremarkable except as noted in HPI and below Reports as per HPI Eyes Reports no additional complaints ENT Reports no additional complaints Card Reports no additional complaints Resp Reports no additional complaints GI Reports as per HPI and Reports no additional complaints Reports as per HPI Musc Reports no additional complaints Skin/Breast Reports as per HPI Neuro Reports no additional complaints and Denies Sensory deficit (Neuro) Psych Reports no additional complaints Endo Reports no additional complaints Moncho/Lymph Reports no additional complaints Aller/Immun Reports no additional complaints Physical exam (Primary Care) Vital Signs: Last Vital Signs Temp 98.3 F 09/28/24 12:47 Pulse 86 09/28/24 12:47 Resp 16 09/28/24 12:47 BP 116/70 09/28/24 12:47 Pulse Ox 99 09/28/24 12:47 Oxygen Delivery Method Room Air 09/28/24 12:47 BMI result Body Mass Index 28.2 Tobacco/Smoking Status: Tobacco use Status Tobacco use date assessed 09/28/24 09/28/24 12:51 Patient Tobacco Use Status Never used Tobacco 09/28/24 12:51 e-Cigarette/Vaping Use Never Used 09/28/24 12:51 PHQ-9: PHQ-9 Score PHQ-9: Total score 0 09/28/24 13:23 Depression Screening Interpretation: Negative Thrive Assessment: Date of Thrive Assessment Date Thrive assessed 09/28/24 09/28/24 12:51 Currently or been in a relationship where the following occur: No concerns reported Const General: no acute distress and alert HENAZ Mouth: Normal oral and palatal mucosa present, oropharynx normal and moist mucous membranes Neck Neck: Yes full ROM and Yes no lymphadenopathy Thyroid: Thyroid normal Chest Breast/axilla palpation: normal palpation of the breasts Resp Effort & Inspection: normal respiratory effort and able to speak in complete sentences Auscultation: clear to auscultation bilaterally Cardio Jugular venous distension: no JVD Rate: regular rate Rhythm: regular rhythm Heart sounds: S1 normal heart sound present and S2 normal heart sound present GI Inspection: Yes normal to inspection Palpation (GI): Soft to palpation, nontender, no guarding and no masses Auscultation: normal bowel sounds General: Yes no CVA tenderness and Yes deferred (Goes to [facility]) Back/Spine/Pelvis Back: no CVA tenderness and No back tenderness Skin General skin exam: no rashes or lesions noted Neuro Sensory Exam: No Sensory deficit (Neuro) Extrem General: Yes normal to inspection, Yes full ROM, Yes no pedal edema and Yes normal gait Psych Appearance: grossly normal and well kempt Mental Status: mental status grossly normal Speech and movement: Normal speech and movement present Affect: normal affect Coding Level of Care Code Est Pt Prev Care 18-39y([id number]) Diagnoses Annual visit for general adult medical examination with abnormal findings Z00. Mild intermittent asthma in adult without complication J45.20 Environmental allergies Z91.09 On depo medroxyprogesterone acetate for contraception Z30.42 Chronic GERD K21.9 Additional Codes PHQ-9 - 76308 - PHQ-9 Billing: Yes ([id number]) Assessment & Plan Assessment & Plan (1) Annual visit for general adult medical examination with abnormal findings: Code(s): Z00. - Encounter for general adult medical examination with abnormal findings Plan: Will check appropriate labs. Continue with regular dental visit every 6 months and regular eye exams, at least every 2 years. Take adequate calcium in diet and vitamin-D 3 at 2000 IU per cap once a day, in addition to weight-bearing exercises to help maintain good muscle tone and weight control. Instructed to do self-breast exam, and recommended to get yearly mammogram, starting at age 40. Up-to-date with her vaccines (2) Mild intermittent asthma in adult without complication: Code(s): J45.20 - Mild intermittent asthma, uncomplicated Category: Medical Plan: Has Ventolin inhaler which she seldom use (3) Environmental allergies: Code(s): Z91.09 - Other allergy status, other than to drugs and biological substances Category: Medical Plan: Takes cetirizine daily (4) On depo medroxyprogesterone acetate for contraception: Onset Date: ~05/04/24 Code(s): Z30.42 - Encounter for surveillance of injectable contraceptive Category: Social Hx Plan: Followed by [facility] (5) Chronic GERD: Code(s): K21.9 - Gastro-esophageal reflux disease without esophagitis Category: Medical Plan: Currently on famotidine and takes Tums as needed, has an appointment scheduled with [facility] later this week Orders: Orders Aspartate Amino Transferase 10/03/24 J45.20 - Mild intermittent asthma, uncomplicated, K21.9 - Gastro-esophageal reflux disease without esophagitis, Z00.01 - Encounter for general adult medical examination with abnormal findings, Z13.1 - Encounter for screening for diabetes mellitus, Z13.220 - Encounter for screening for lipoid disorders, Z30.42 - Encounter for surveillance of injectable contraceptive, Z91.09 - Other allergy status, other than to drugs and biological substances Basic Metabolic Panel Fasting 10/03/24 J45.20 - Mild intermittent asthma, uncomplicated, K21.9 - Gastro-esophageal reflux disease without esophagitis, Z00.01 - Encounter for general adult medical examination with abnormal findings, Z13.1 - Encounter for screening for diabetes mellitus, Z13.220 - Encounter for screening for lipoid disorders, Z30.42 - Encounter for surveillance of injectable contraceptive, Z91.09 - Other allergy status, other than to drugs and biological substances Lipid Panel 10/03/24 J45.20 - Mild intermittent asthma, uncomplicated, K21.9 - Gastro-esophageal reflux disease without esophagitis, Z00.01 - Encounter for general adult medical examination with abnormal findings, Z13.1 - Encounter for screening for diabetes mellitus, Z13.220 - Encounter for screening for lipoid disorders, Z30.42 - Encounter for surveillance of injectable contraceptive, Z91.09 - Other allergy status, other than to drugs and biological substances Alanine Aminotransferase 10/03/24 J45.20 - Mild intermittent asthma, uncomplicated, K21.9 - Gastro-esophageal reflux disease without esophagitis, Z00.01 - Encounter for general adult medical examination with abnormal findings, Z13.1 - Encounter for screening for diabetes mellitus, Z13.220 - Encounter for screening for lipoid disorders, Z30.42 - Encounter for surveillance of injectable contraceptive, Z91.09 - Other allergy status, other than to drugs and biological substances
[2024-09-28 12:47] VITALS: BP 116/70; PULSE 86; RESP 16; TEMP 36.8; O2SAT 99; BMI 28.2
--- OUTSIDE RECORDS SUMMARY | 2024-09-28 14:49 | XMS_ITS | Clinical Summary ---
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; COMMENT: Dr Abraham Migraine without aura 02/02/2021 DX:Migrain e without aura Seizure disorder (CMS/HCC V2 4, CMS/HCC V28) DX:Seizure disorder (HCC); C OMMENT: x 1 Family History Medical History Relation [...] Vaccine (1 - 2023-2 5 season) 2024 DTaP,Tdap,and Td Vaccines (2 - Td or Tdap) 11/29/2024 11/29/2014 Influenza Vaccine (Season Ended) 2025 03/06/20 17 HIB Vaccines Aged Out No longer eligi [...] age to complete this topic Meningococcal B Vaccine Aged Out No l onger eligible based on patient's age to complete this topic RSV Immunization Patients Un mik 20 months Aged Out No longer eligible b ased on patient's age to complete this topic Varicella Vaccines Aged Out No longer eligible based on patient's age to complete this topic Advance Directives Documents on File Type Date Recorded Patient Melter Supervisor Expl anation Health Care Decision (hx) 04/22/2019 AD NELSON DIRECTIVE Care Teams Dining Chair Seat Cushion Trimmer Relationship Specialty Start Date End Date Mima Morley MD [address] [place] [address] PCP - General Internal Medicine 12/26/21
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
--- OUTSIDE RECORDS SUMMARY | 2024-09-28 14:49 | XMS_ITS | Encounter Summary ---
Author Organization [facility] Address [address] [place] [address] Care Team Providers Care Clinic Scheduler Name Role Phone Caitie Godinez DO Primary Care Pro vider Unavailable Community, Pcp Primary Care Provider Mima Evangelista Md, MD Primary Care Provider Unavailable Encounter Details Date Type Department Care Team Description 09/15/2015 Release of Information Medical Records [address] [place] [id number] Abstract, Provider Social History Tobacco Use Types [...] on filedocumented in this encounter Care Teams Clinic Scheduler Relationship Specialty Start Date End Date Caitie Godinez DO PCP - General Internal Medicine 12/01/14 11/23/21 Ann, Pcp PCP - General Internal Medicine 11/24/21 12/25/21 Mima Morley MD, MD PCP - General Internal Medicine 12/26/21 documented as of this encounter
--- OUTSIDE RECORDS SUMMARY | 2024-09-28 14:49 | XMS_ITS | Encounter Summary ---
Author Organization [facility] Address [address] [place] [address] Care Team Providers Care Leaf Fat Scraper Name Role Phone Caitie Godinez DO Primary Care Pro vider Unavailable [facility], Pcp Primary Care Provider Mima Evangelista Md, MD Primary Care Provider Unavailable Encounter Details Date Type Department Care Team Description 04/24/2021 Retail Analytics Manager Report Medical Records [address] [place] [address] Faviola Abraham MD Social History Tobacco Use [...] on filedocumented in this encounter Care Teams Leaf Fat Scraper Relationship Specialty Start Date End Date Caitie Godinez DO PCP - General Internal Medicine 12/01/14 11/23/21 Ann, Pcp PCP - General Internal Medicine 11/24/21 12/25/21 Mima Morley MD, MD PCP - General Internal Medicine 12/26/21 documented as of this encounter
--- OUTSIDE RECORDS SUMMARY | 2024-09-28 14:49 | XMS_ITS | Encounter Summary ---
Author Organization [facility] Address [address] [place] [address] Care Team Providers Care Dsp Engineer Name Role Phone Caitie Godinez DO Primary Care Pro vider Unavailable [facility], Pcp Primary Care Provider Mima Evangelista Md, MD Primary Care Provider Unavailable Encounter Details Date Type Department Care Team Description 06/22/2019 Post Office Markup Clerk Report Medical Records [address] [place] [address] Faviola Abraham MD Social History Tobacco Use [...] on filedocumented in this encounter Care Teams Dsp Engineer Relationship Specialty Start Date End Date Caitie Gdoinez DO PCP - General Internal Medicine 12/01/14 11/23/21 Ann, Pcp PCP - General Internal Medicine 11/24/21 12/25/21 Mima Morley MD, MD PCP - General Internal Medicine 12/26/21 documented as of this encounter
--- OUTSIDE RECORDS SUMMARY | 2024-09-28 14:49 | XMS_ITS | Encounter Summary ---
Author Organization [facility] Address [address] [place] [address] Care Team Providers Care General Duty Nurse Name Role Phone Caitie Godinez DO [...] Description 03/23/2014 Release of Information Medical Records [address] [place] [id number] Abstract, Provider Social History Tobacco Use Types [...] on filedocumented in this encounter Care Teams General Duty Nurse Relationship Specialty Start Date End Date Caitie Godinez DO PCP - General Internal Medicine 10/19/13 06/07/14 Rosa Narvaez MD PCP - General Pediatrics 06/08/14 07/18/14 Caitie Godinez DO PCP - General Internal Medicine 07/19/14 11/30/14 Caitie Godinez DO PCP - General Internal Medicine 12/01/14 11/23/21 [facility], Pcp PCP - General Internal Medicine 11/24/21 12/25/21 Mima Morley MD, MD PCP - General Internal Medicine 12/26/21 documented as of this encounter
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
--- OUTSIDE RECORDS SUMMARY | 2024-09-28 14:49 | XMS_ITS | Encounter Summary ---
Author Organization [facility] Address [address] [place] [address] Care Team Providers Care Drill Sharpener Operator Name Role Phone Caitie Godinez DO Primary Care Pro vider Unavailable Community, Pcp Primary Care Provider Mima Evangelista Md, MD Primary Care Provider Unavailable Encounter Details Date Type Department Care Team Description 02/22/2016 Transfer Records Medical Records [address] [place] [address] Abstract, Provider Social History Tobacco Use Types [...] on filedocumented in this encounter Care Teams Drill Sharpener Operator Relationship Specialty Start Date End Date Caitie Godinez DO PCP - General Internal Medicine 12/01/14 11/23/21 Ann, Pcp PCP - General Internal Medicine 11/24/21 12/25/21 Mima Morley MD, MD PCP - General Internal Medicine 12/26/21 documented as of this encounter
--- OUTSIDE RECORDS SUMMARY | 2024-09-28 14:49 | XMS_ITS | Encounter Summary ---
Author Organization [facility] Address [address] [place] [address] Care Team Providers Care Electric Refrigerator Servicer Name Role Phone Caitie Godinez DO Primary Care Pro vider Unavailable [facility], Pcp Primary Care Provider Mima Evangelista Md, MD Primary Care Provider Unavailable Encounter Details Date Type Department Care Team Description 10/20/2019 Sand Caster Apprentice Report Medical Records [address] [place] [address] Faviola Abraham MD Social History Tobacco Use [...] on filedocumented in this encounter Care Teams Electric Refrigerator Servicer Relationship Specialty Start Date End Date Caitie Godinez DO PCP - General Internal Medicine 12/01/14 11/23/21 Ann, Pcp PCP - General Internal Medicine 11/24/21 12/25/21 Mima Morley MD, MD PCP - General Internal Medicine 12/26/21 documented as of this encounter
--- OUTSIDE RECORDS SUMMARY | 2024-09-28 14:49 | XMS_ITS | Encounter Summary ---
Author Organization [facility] Address [address] [place] [address] Care Team Providers Care Leather Whitener Name Role Phone Caitie Godinez DO Primary Care Pro vider Unavailable Community, Pcp Primary Care Provider Mima Evangelista Md, MD Primary Care Provider Unavailable Encounter Details Date Type Department Care Team Description 04/05/2017 Release of Information Medical Records [address] [place] [id number] Abstract, Provider Social History Tobacco Use Types [...] on filedocumented in this encounter Care Teams Leather Whitener Relationship Specialty Start Date End Date Caitie Godinez DO PCP - General Internal Medicine 12/01/14 11/23/21 Ann, Pcp PCP - General Internal Medicine 11/24/21 12/25/21 Mima Morley MD, MD PCP - General Internal Medicine 12/26/21 documented as of this encounter
--- OUTSIDE RECORDS SUMMARY | 2024-09-28 14:49 | XMS_ITS | Encounter Summary ---
Author Organization [facility] Address [address] [place] [address] Care Team Providers Care Air Compressor Operator Name Role Phone Caitie Godinez DO Primary Care Pro vider Unavailable [facility], Pcp Primary Care Provider Mima Evangelista Md, MD Primary Care Provider Unavailable Encounter Details Date Type Department Care Team Description 06/17/2017 Watch Repair Technician Report Medical Records [address] [place] [address] Faviola Abraham MD Social History Tobacco Use [...] on filedocumented in this encounter Care Teams Air Compressor Operator Relationship Specialty Start Date End Date Caitie Godinez DO PCP - General Internal Medicine 12/01/14 11/23/21 Ann, Pcp PCP - General Internal Medicine 11/24/21 12/25/21 Mima Morley MD, MD PCP - General Internal Medicine 12/26/21 documented as of this encounter
--- OUTSIDE RECORDS SUMMARY | 2024-09-28 14:49 | XMS_ITS | Encounter Summary ---
Author Organization [facility] Address [address] [place] [address] Care Team Providers Care Bill Cutter Name Role Phone Caitie Godinez DO Primary Care Pro vider Unavailable [facility], Pcp Primary Care Provider Mima Evangelista Md, MD Primary Care Provider Unavailable Encounter Details Date Type Department Care Team Description 06/23/2018 Medical Radiation Dosimetrist Report Medical Records [address] [place] [address] Faviola Abraham MD Social History Tobacco Use [...] on filedocumented in this encounter Care Teams Bill Cutter Relationship Specialty Start Date End Date Caitie Godinez DO PCP - General Internal Medicine 12/01/14 11/23/21 Ann, Pcp PCP - General Internal Medicine 11/24/21 12/25/21 Mima Morley MD, MD PCP - General Internal Medicine 12/26/21 documented as of this encounter
--- OUTSIDE RECORDS SUMMARY | 2024-09-28 14:49 | XMS_ITS | Encounter Summary ---
Author Organization [facility] Address [address] [place] [address] Care Team Providers Care Plaster Tender Name Role Phone Caitie Godinez DO Primary Care Pro vider Unavailable [facility], Pcp Primary Care Provider Mima Evangelista Md, MD Primary Care Provider Unavailable Encounter Details Date Type Department Care Team Description 03/29/2021 Raw Products Director Report Medical Records [address] [place] [address] Faviola Abraham MD Social History Tobacco Use [...] on filedocumented in this encounter Care Teams Plaster Tender Relationship Specialty Start Date End Date Caitie Godinez DO PCP - General Internal Medicine 12/01/14 11/23/21 Ann, Pcp PCP - General Internal Medicine 11/24/21 12/25/21 Mima Morley MD, MD PCP - General Internal Medicine 12/26/21 documented as of this encounter
--- OUTSIDE RECORDS SUMMARY | 2024-09-28 14:49 | XMS_ITS | Encounter Summary ---
Author Organization [facility] Address [address] [place] [address] Care Team Providers Care Rodbuster Name Role Phone Caitie Godinez DO Primary Care Pro vider Unavailable [facility], Pcp Primary Care Provider Mima Evangelista Md, MD Primary Care Provider Unavailable Encounter Details Date Type Department Care Team Description 03/23/2019 Vest Presser Report Medical Records [address] [place] [address] Faviola Abraham MD Social History Tobacco Use [...] on filedocumented in this encounter Care Teams Rodbuster Relationship Specialty Start Date End Date Caitie Godinez DO PCP - General Internal Medicine 12/01/14 11/23/21 Ann, Pcp PCP - General Internal Medicine 11/24/21 12/25/21 Mima Morley MD, MD PCP - General Internal Medicine 12/26/21 documented as of this encounter
--- OUTSIDE RECORDS SUMMARY | 2024-09-28 14:49 | XMS_ITS | Encounter Summary ---
Author Organization [facility] Address [address] [place] [address] Care Team Providers Care Shoemaking Finisher Name Role Phone Caitie Godinez DO Primary Care Pro vider Unavailable [facility], Pcp Primary Care Provider Mima Evangelista Md, MD Primary Care Provider Unavailable Encounter Details Date Type Department Care Team Description 05/15/2018 [place]er Report Medical Records [address] [place] [address] Faviola Abraham MD Social History Tobacco Use [...] on filedocumented in this encounter Care Teams Shoemaking Finisher Relationship Specialty Start Date End Date Caitie Godinez DO PCP - General Internal Medicine 12/01/14 11/23/21 Ann, Pcp PCP - General Internal Medicine 11/24/21 12/25/21 Mima Morley MD, MD PCP - General Internal Medicine 12/26/21 documented as of this encounter
== END 2024-09-28 13:25 | disposition home or self-care (01) ==
LOC: HO.HMCC 12:24
PROVIDERS: PCP Internal Medicine; Visit Provider Internal Medicine
DX: Z00.01 Encounter for general adult medical examination with abnormal findings (principal); J45.20 Mild intermittent asthma, uncomplicated; Z91.09 Other allergy status, other than to drugs and biological substances; K21.9 Gastro-esophageal reflux disease without esophagitis

== ENCOUNTER → 2024-09-28 12:23 | Outpatient (BNVA) | payer OTHER, SELFPAY | PROVIDERS: PCP Internal Medicine; Visit Provider Internal Medicine | DX: Z00.01 Encounter for general adult medical examination with abnormal findings (principal); J45.20 Mild intermittent asthma, uncomplicated; K21.9 Gastro-esophageal reflux disease without esophagitis; Z91.09 Other allergy status, other than to drugs and biological substances | CPT/HCPCS: 96127; 99395 ==

== ENCOUNTER 2024-10-02 16:17 | Outpatient (AMB) | payer OTHER, SELFPAY ==
[2024-10-02 16:19] VITALS: BP 137/77; PULSE 88; O2SAT 97; BMI 28.8
--- NOTE | 2024-10-02 16:19 | A.OFFVIS_ITS ---
Vital Signs 10/02/24 16:19 Height 5 ft 6 in Weight 178 lb 8.485 oz BMI 28.8 BP 137/77 Blood Pressure Location Lt brachial Position Sitting Pulse 88 Pulse Source Pulse Oximeter Pulse Oximetry (%) 97 Oxygen Delivery Method Room Air Intake Visit Reasons: s/P EGD; Dr Pretty Intake Note: Patient follow up forn GERD, EGD and US results. Allergies No Known Allergies Allergy (Verified 10/02/24 16:19) HPI HPI s/P EGD; Dr Pretty: Details: Assessment & Plan (1) Chronic GERD: Code(s): K21.9 - Gastro-esophageal reflux disease without esophagitis Category: Medical (2) Nausea and vomiting: Code(s): R11.2 - Nausea with vomiting, unspecified Category: Medical (3) Cognitive impairment: Code(s): R41.89 - Other symptoms and signs involving cognitive functions and awareness Category: Medical (4) History of seizure disorder: Code(s): Z86.69 - Personal history of other diseases of the nervous system and sense organs Category: Medical Plan She is here today with a staff member who is supportive and is the primary excel vba developer. Neema Barlowanibal. She says she has had HB for years and it is worse at night despite her pantorapzole. She also c/o frequent nausea and will vomit about once a week. They can not tie any particular food to her vomiting. She also will have diarrhea about once a week. She has been gaining weight recently about 15-20 lbs. This may be due to a multiple factors, she is no longer working at [employer] and she goes to a day program now. They are working to cut out unnecessary calories, but this education is process is difficult with her Mother - but she is not in her care and only sees her once a week. She is cognitively impaired and does not know if there are any GI problems in FHX. We will get EGD and change her medications to pantoprazole qam and famotidine added in the evening. Her asthma is well controlled and not cardiac problems, no recent seizures. She is naive to anesthesia and sedation. No ID problems. Return office visit in 4-6 weeks to evaluate the effectiveness of the pantoprazole/famotidine combination. Orders: Orders US abdomen complete 04/15/24 R11.2 - Nausea with vomiting, unspecified EGD - GI Use Only 04/15/24 K21.9 - Gastro-esophageal reflux disease without esophagitis Medications: New famotidine (Pepcid) 40 mg PO .qevening 30 tabs 6RF K21.9 - Gastro-esophageal reflux disease without esophagitis Changed From pantoprazole 40 mg PO BEDTIME 30 tabs 5RF K21.9 - Gastro-esophageal reflux disease without esophagitis To pantoprazole 40 mg PO QAM 30 tabs 6RF K21.9 - Gastro-esophageal reflux disease without esophagitis ULTRASOUND OF THE ABDOMEN 05/11/2024 FINDINGS: PANCREAS: Visualized portions are unremarkable. ABDOMINAL AORTA: The proximal, mid, and distal segments are normal in caliber. INFERIOR VENA CAVA: Visualized portions are normal. LIVER: The liver is normal in size. The liver contour is normal. Increased echogenicity of the liver parenchyma, this can be seen in the setting of hepatic steatosis or liver parenchymal disease. No focal hepatic lesion. There is no intrahepatic biliary duct dilatation seen. GALLBLADDER: The gallbladder is physiologically distended without evidence of stones, sludge, polyps, wall thickening or pericholecystic fluid. COMMON BILE DUCT: Normal in caliber measuring 0.4 cm in diameter. RIGHT KIDNEY: No hydronephrosis. No renal calculi or focal parenchymal lesions. The kidney measures 9.6 cm in maximum dimension. LEFT KIDNEY: No hydronephrosis. No renal calculi or focal parenchymal lesions. The kidney measures 11.9 cm in maximum dimension. SPLEEN: The spleen measures 7.9 cm in maximum dimension. FREE FLUID: None. US/US abdomen complete IMPRESSION: No ultrasound explanation for patient's symptoms. Increased echogenicity of the liver parenchyma, this can be seen in the setting of hepatic steatosis or liver parenchymal disease. EGD EGD Findings:? * Esophagus:? Normal mucosa noted in the entire esophagus. The Z line was at 37 cm. Middle and lower esophagus forceps biopsies were obtained to rule out eosinophilic esophagitis. * Stomach:? Mild focal erythema noted in the distal body of the stomach. A few polyps noted in the fundus. Cold forceps polypectomy was performed for the larger polyp. Retroflexion was performed in the cardia. Random cold forceps gastric biopsies were taken to rule out H Pylori infection. * Duodenum:? Normal mucosa was noted in the whole of the examined duodenum. []Biopsies were taken from duodenal bulb and second portion of the duodenum to rule out celiac sprue. ? EGD Impressions:? * Normal esophagus (biopsy) * Gastric polyps (polypectomy) * Gastritis (biopsy) * Normal duodenum (biopsy)?? Recommendations:?? * Follow biopsy results. Our office will call or send a letter with results within 7-10 days. * Can reduce anti-secretory therapy to single agent. Pantoprazole discontinued. . * If H pylori +, patient will be prescribed eradication therapy followed by test of cure. * Avoid NSAIDs. Biopsy Received: 09/03/24 Diagnosis A. Duodenum, biopsy: Small intestinal mucosa within normal limits. B. Stomach, random, biopsy: Antral-type and oxyntic mucosa with mild chronic inactive inflammation and focal regenerative changes; no Helicobacter organisms seen. C. Stomach, polypectomy: Fundic gland polyp with background mild chronic inactive inflammation; no Helicobacter organisms seen. D. Esophagus, lower, biopsy: Squamous epithelium within normal limits; no inflammation seen. D. Esophagus, middle, biopsy: Squamous epithelium within normal limits; no inflammation seen. TODAY'S VISIT She is here with a staff member who is supportive but does not know specifics about whether she has had improved sx or not. The pt is a poor historian and is vague. They admit she drinks a lot of soda and coffee and OJ. Because she is vague in her self reporting I do not know if medications have helped her. It appears that the pantoprazole was stopped after her endoscopy because of the negative findings. She does continue on famotidine. The only thing she does verbalize well as that she is having quite a lot of belching and gases. She is unclear as to whether she moves her bowels daily or has some constipation. I think I want to have her staff keep a log of her symptoms I day-to-day basis and bring it back to me since the patient is not good it self reporting. I will also give her a trial of simethicone. Return office visit in 3 months [facility] Medical History (Updated 10/02/24 @ 16:41 by DANILO Davis) Encounter for well woman exam with routine gynecological exam Surveillance for Depo-Provera contraception Abnormal findings on esophagogastroduodenoscopy (EGD) On depo medroxyprogesterone acetate for contraception (~05/04/24) Heartburn Chronic GERD History of vitamin D deficiency History of seizure disorder Cognitive developmental delay Environmental allergies Mild intermittent asthma in adult without complication Surgical History No pertinent past surgical history Family History Father No problems noted. Mother Diabetes mellitus HTN (hypertension) Substance use disorder Mental health disorder Maternal Aunt Substance use disorder Sister No problems noted. Maternal Grandmother Substance use disorder Social History Housing: House Housing Other:: Private home Alcohol intake: never Patient Tobacco Use Status: Never used Tobacco e-Cigarette/Vaping Use: Never Used service: No Current occupational status: employed Cognitive needs: No Hearing needs: No Vision needs: Yes Review of Systems Const Denies fatigue, Denies fever(s), Denies night sweats, Denies poor appetite and Denies weight loss ENT Reports Normal hearing present, Denies dental pain, Denies dysphagia, Denies hearing loss, Denies mouth pain, Denies odynophagia, Denies throat swelling, Denies tongue swelling and Reports other (Dentition adequate) Card Reports no additional complaints Resp Reports no additional complaints GI Details: Denies abdominal pain, Denies melena, Reports bloating, Denies hematochezia, Denies constipation, Denies GI cramping, Denies dysphagia, Denies excessive flatus, Denies early satiety, Denies heartburn, Denies diarrhea, Reports nausea, Denies odynophagia, Denies vomiting and Denies hematemesis Skin/Breast Denies pruritus, Denies lesions, Denies rash and Denies jaundice Neuro Reports Normal hearing present and Denies Abnormal speech present Endo Denies fatigue Aller/Immun Denies throat swelling and Denies tongue swelling Physical Exam Vital Signs: Last Vital Signs Pulse 88 10/02/24 16:19 BP 137/77 10/02/24 16:19 Pulse Ox 97 10/02/24 16:19 Oxygen Delivery Method Room Air 10/02/24 16:19 BMI result Body Mass Index 28.8 Const General: cooperative, no acute distress, well developed and well groomed Nutritional Appearance: well nourished and overweight Orientation/consciousness: oriented to person, oriented to place and oriented to time Limitations: No language barrier and other limitations HEENT Head: Yes normocephalic and Yes atraumatic Eyes General: appearance normal, both eyes and all related structures Pupils: Equal, round and reactive pupils present Neck Neck: Yes normal visual inspection and Yes no lymphadenopathy Thyroid: Thyroid normal Resp Effort & Inspection: normal respiratory effort and able to speak in complete sentences Auscultation: clear to auscultation bilaterally Cardio Rate: regular rate Rhythm: regular rhythm Heart sounds: Normal, physiologic split S2 sound present Peripheral pulses: radial pulses present and posterior tibial pulses present GI Inspection: No distended, No Abdominal panniculus present and Yes obesity Palpation (GI): Soft to palpation, nontender, no guarding, not rigid and No hepatosplenomegaly present Percussion: Yes normal to percussion Auscultation: normal bowel sounds Rectal Exam - Female: deferred Skin General skin exam: no rashes or lesions noted, turgor normal, skin not dry, no jaundice, No spider nevi and no striae Rashes: no rashes Nails: normal Neuro General: oriented to person, oriented to place and oriented to time Cranial nerves: Yes Equal, round and reactive pupils present and Yes Normal hearing present Speech: No Abnormal speech present Extrem General: Yes normal to inspection, No clubbing, No cyanosis and No edema Psych Appearance: grossly normal and well kempt Speech and movement: Normal speech and movement present Affect: normal affect Attitude: cooperative Thought process: not confabulating and Impoverished thought process present Thought content: Normal thought content present Insight: Poor insight present (Psych) Judgement: Poor judgement present (Psych) Results Reviewed Results Reviewed: ULTRASOUND OF THE ABDOMEN 05/11/2024 FINDINGS: PANCREAS: Visualized portions are unremarkable. ABDOMINAL AORTA: The proximal, mid, and distal segments are normal in caliber. INFERIOR VENA CAVA: Visualized portions are normal. LIVER: The liver is normal in size. The liver contour is normal. Increased echogenicity of the liver parenchyma, this can be seen in the setting of hepatic steatosis or liver parenchymal disease. No focal hepatic lesion. There is no intrahepatic biliary duct dilatation seen. GALLBLADDER: The gallbladder is physiologically distended without evidence of stones, sludge, polyps, wall thickening or pericholecystic fluid. COMMON BILE DUCT: Normal in caliber measuring 0.4 cm in diameter. RIGHT KIDNEY: No hydronephrosis. No renal calculi or focal parenchymal lesions. The kidney measures 9.6 cm in maximum dimension. LEFT KIDNEY: No hydronephrosis. No renal calculi or focal parenchymal lesions. The kidney measures 11.9 cm in maximum dimension. SPLEEN: The spleen measures 7.9 cm in maximum dimension. FREE FLUID: None. US/US abdomen complete IMPRESSION: No ultrasound explanation for patient's symptoms. Increased echogenicity of the liver parenchyma, this can be seen in the setting of hepatic steatosis or liver parenchymal disease. EGD EGD Findings:? * Esophagus:? Normal mucosa noted in the entire esophagus. The Z line was at 37 cm. Middle and lower esophagus forceps biopsies were obtained to rule out eo sinophilic esophagitis. * Stomach:? Mild focal erythema noted in the distal body of the stomach. A few polyps noted in the fundus. Cold forceps polypectomy was performed for the larger polyp. Retroflexion was performed in the cardia. Random cold forceps gastric biopsies were taken to rule out H Pylori infection. * Duodenum:? Normal mucosa was noted in the whole of the examined duodenum. []Biopsies were taken from duodenal bulb and second portion of the duodenum to rule out celiac sprue. ? EGD Impressions:? * Normal esophagus (biopsy) * Gastric polyps (polypectomy) * Gastritis (biopsy) * Normal duodenum (biopsy)?? Recommendations:?? * Follow biopsy results. Our office will call or send a letter with results within 7-10 days. * Can reduce anti-secretory therapy to single agent. Pantoprazole discontinued. . * If H pylori +, patient will be prescribed eradication therapy followed by test of cure. * Avoid NSAIDs. Biopsy Received: 09/03/24 Diagnosis A. Duodenum, biopsy: Small intestinal mucosa within normal limits. B. Stomach, random, biopsy: Antral-type and oxyntic mucosa with mild chronic inactive inflammation and focal regenerative changes; no Helicobacter organisms seen. C. Stomach, polypectomy: Fundic gland polyp with background mild chronic inactive inflammation; no Helicobacter organisms seen. D. Esophagus, lower, biopsy: Squamous epithelium within normal limits; no inflammation seen. D. Esophagus, middle, biopsy: Squamous epithelium within normal limits; no inflammation seen. Assessment & Plan Assessment & Plan (1) Nausea and vomiting: Code(s): R11.2 - Nausea with vomiting, unspecified Category: Medical (2) Chronic GERD: Code(s): K21.9 - Gastro-esophageal reflux disease without esophagitis Category: Medical (3) Cognitive impairment: Code(s): R41.89 - Other symptoms and signs involving cognitive functions and awareness Category: Medical (4) Abdominal bloating: Code(s): R14.0 - Abdominal distension (gaseous) Category: Medical Plan She is here with a staff member who is supportive but does not know specifics about whether she has had improved sx or not. The pt is a poor historian and is vague. They admit she drinks a lot of soda and coffee and OJ. Because she is vague in her self reporting I do not know if medications have helped her. It appears that the pantoprazole was stopped after her endoscopy because of the negative findings. She does continue on famotidine. The only thing she does verbalize well as that she is having quite a lot of belching and gases. She is unclear as to whether she moves her bowels daily or has some constipation. I think I want to have her staff keep a log of her symptoms I day-to-day basis and bring it back to me since the patient is not good it self reporting. I will also give her a trial of simethicone. Return office visit in 3 months Medications: New simethicone (Gas Relief (simethicone)) 125 mg PO TID 90 tabs 6RF abdominal distention R14.0 - Abdominal distension (gaseous) Refilled famotidine 40 mg PO BEDTIME 90 tabs 2RF K21.9 - Gastro-esophageal reflux disease without esophagitis Coding Level of Care Code Est Pt Level 3 (08509) Diagnoses Nausea and vomiting R11.2 Chronic GERD K21.9 Cognitive impairment R41.89 Abdominal bloating R14.0
== END 2024-10-02 16:52 | disposition home or self-care (01) ==
LOC: HO.HGI 16:17
PROVIDERS: PCP Internal Medicine; Visit Provider Nurse Practitioner
DX: R11.2 Nausea with vomiting, unspecified (principal); K21.9 Gastro-esophageal reflux disease without esophagitis; R41.89 Other symptoms and signs involving cognitive functions and awareness; R14.0 Abdominal distension (gaseous)
CPT/HCPCS: 99213

== ENCOUNTER → 2024-10-02 16:17 | Outpatient (BNVA) | payer OTHER, SELFPAY | PROVIDERS: PCP Internal Medicine; Visit Provider Nurse Practitioner | DX: K21.9 Gastro-esophageal reflux disease without esophagitis (principal); R11.2 Nausea with vomiting, unspecified; R41.89 Other symptoms and signs involving cognitive functions and awareness; R14.0 Abdominal distension (gaseous); Z86.69 Personal history of other diseases of the nervous system and sense organs | CPT/HCPCS: 99212 ==

== ENCOUNTER 2024-10-03 09:17 | Outpatient (REF) | payer OTHER, SELFPAY ==
[2024-10-03 12:25] LABS: Alanine Aminotransferase 13 U/L (0-31); Anion Gap 12 (12-20); Aspartate Amino Transferase 19 U/L (5-31); Blood Urea Nitrogen 10 mg/dL (9-16); Calcium 9.1 mg/dL (8.4-10.2); Carbon Dioxide 23 mmol/L (22-29); Chloride 109 mmol/L (96-108); Cholesterol 153 mg/dL (<200); Estimated Glomerular Filt Rate > 60; Glucose Fasting 85 mg/dL (60-99); HDL Cholesterol 52 mg/dL (>40); LDL Cholesterol Calculated 88 mg/dL (<100); Potassium 4.1 mmol/L (3.3-5.1); Sodium 140 mmol/L (135-145); Triglycerides 67 mg/dL (<150)
== END 2024-10-03 09:18 | disposition home or self-care (01) ==
LOC: HO.HMGCLDS 09:17
PROVIDERS: PCP Internal Medicine; Visit Provider Internal Medicine
DX: Z00.01 Encounter for general adult medical examination with abnormal findings (principal); Z13.1 Encounter for screening for diabetes mellitus; Z13.220 Encounter for screening for lipoid disorders; J45.20 Mild intermittent asthma, uncomplicated; K21.9 Gastro-esophageal reflux disease without esophagitis; Z91.09 Other allergy status, other than to drugs and biological substances
CPT/HCPCS: 36415; 80048; 80061; 84450; 84460

== ENCOUNTER 2024-10-19 10:52 | Outpatient (AMB) | payer OTHER, SELFPAY ==
--- NOTE | 2024-10-19 11:10 | AM.OFFVISNUR ---
Vital Signs 10/19/24 11:11 Height 5 ft 6 in Weight 177 lb BMI 28.6 Intake Visit Reasons: DEPO Allergies No Known Allergies Allergy (Verified 10/05/24 01:55) Office Procedures Depo Questionnaire If YES to any of the following questions, please consult a provider. Date of last injection: 07/27/24 Date of last gynecology exam: 09/01/24 Menstrual pattern since last injection has been: Not Applicable Irregular bleeding?: No Breast lumps or other breast changes?: No Changes in weight or appetite?: No Depression or changes in mood?: No Abnormal hair growth or loss?: No Skin problems (rash, acne, discoloration)?: No Pain at the injection site?: No Headaches?: No Nervousness?: No Abdominal pain or cramping?: No Dizziness or nausea?: No Fatigue or weakness?: No Decrease in sexual drive?: No Chest pain or shortness of breath?: No Swelling in arms or legs?: No Any other problems or concerns?: NONE Form completed by?: Jen Mukherjee Office Meds Depo-Provera 150 mg/mL intramuscular syringe Performing Provider: Lidia Brice CNM Performing Location: [facility] Administered by: Jen Velarde LPN on 10/19/24 11:12 Dose Route Admin Location Dispensed Lot Number Expiration Date [facility] Roll Line Operator 150 mg IM 1 mL [id number] 09/19/26 11328-964-83 [facility] Assessment & Plan Assessment & Plan Orders: Orders AMB Medroxyprogesterone Injection Patient Supplied Today Z30.42 - Encounter for surveillance of injectable contraceptive Medications: New Depo-Provera (medroxyprogesterone) 150 mg IM ONCE 1 mL 0RF NS Z30.42 - Encounter for surveillance of injectable contraceptive Coding Level of Care Code Established Pt Est Pt Level 1 (43590) Patient Type Established History Problem Focused Exam Problem Focused Medical Decision Making Straight Forward Time Spent (min) 20
[2024-10-19 11:11] VITALS: BMI 28.6
--- OUTSIDE RECORDS SUMMARY | 2024-10-19 11:28 | XMS_ITS | Encounter Summary ---
Author Organization [facility] Address [address] [place] [address] Care Team Providers Care Flatbed Driver Name Role Phone Caitie Godinez DO Primary Care Pro vider Unavailable [facility], Pcp Primary Care Provider Mima Evangelista Md, MD Primary Care Provider Unavailable Encounter Details Date Type Department Care Team Description 06/22/2019 [place] Report Medical Records [address] [place] [address] Faviola Abraham MD Social History Tobacco Use [...] on filedocumented in this encounter Care Teams Flatbed Driver Relationship Specialty Start Date End Date Caitie Godinez DO PCP - General Internal Medicine 12/01/14 11/23/21 Ann, Pcp PCP - General Internal Medicine 11/24/21 12/25/21 Mima Morley MD, MD PCP - General Internal Medicine 12/26/21 documented as of this encounter
--- OUTSIDE RECORDS SUMMARY | 2024-10-19 11:29 | XMS_ITS | Clinical Summary ---
Author Organization [facility] Address [id number] [place] [id number] Care Team Providers Care Clerical Aide Teacher Name Role Phone Mima Morley MD Primary [...] Documents on File Type Date Recorded Patient Fringe Weaver Expl anation Health Care Decision (hx) 04/22/2019 AD NELSON DIRECTIVE Care Teams Clerical Aide Teacher Relationship Specialty Start Date End Date Mima Morley MD [address] [place] [address] PCP - General Internal Medicine 12/26/21
--- OUTSIDE RECORDS SUMMARY | 2024-10-19 11:29 | XMS_ITS | Encounter Summary ---
Author Organization [facility] Address [address] [place] [address] Care Team Providers Care Kettle Chipper Name Role Phone Caitie Godinez DO Primary Care Pro vider Unavailable [facility], Pcp Primary Care Provider Mima Evangelista Md, MD Primary Care Provider Unavailable Encounter Details Date Type Department Care Team Description 06/17/2017 Director Fixed Income Report Medical Records [address] [place] [address] Faviola Abraham MD Social History Tobacco Use [...] on filedocumented in this encounter Care Teams Kettle Chipper Relationship Specialty Start Date End Date Caitie Godinez DO PCP - General Internal Medicine 12/01/14 11/23/21 Ann, Pcp PCP - General Internal Medicine 11/24/21 12/25/21 Mima Morley MD, MD PCP - General Internal Medicine 12/26/21 documented as of this encounter
--- OUTSIDE RECORDS SUMMARY | 2024-10-19 11:29 | XMS_ITS | Encounter Summary ---
Author Organization [facility] Address [address] [place] [address] Care Team Providers Care Nicker Name Role Phone Caitie Godinez DO Primary Care Pro vider Unavailable [facility], Pcp Primary Care Provider Mima Evangelista Md, MD Primary Care Provider Unavailable Reason for Visit * Reason Onset Date Comments Prior Authorization 09/04/2015 Encounter Details Date Type Department Care Team Description 09/04/2015 Telephone Adult Medicine [address] [address] Caitie Godinez DO Prior Authorization Social History [...] signature . Signed and faxed back to [facility] * Telephone Encounter - Maryse Deshpande M.A. - 09/05/2015 10:22 AM EDT Done with cover my meds to [employer]. It is formulary with [employer] which is primary * Telephone Encounter - Shani Rutherford - 09/04/2015 3:47 PM EDT Pre Authorization for Medication Does the patient already have this medication?NO Is this a Cover My Meds request: [place] of Medication CLINDAMYCIN PH Dose of Medication 1% GEL How does patient take this med? APPLY SPARINGLY TO AFFECTED AREA NIGHTLY What other dosage or similar medication have you tried in the past for this problem NA Patients current medical insurance [employer] What Prescription Plan does the patient have? NA Prescription Plan Tel # from back of prescription ID card [phone] What is the patients Prescription Plan ID #? [id number] What Pharmacy does the patient use? [facility] Tel # [phone] Fax # [phone] Payor: [employer] FFS / Plan: [employer] [place] $15 / Product Type: HMO [id number] documented in this encounter Plan of Treatment Not on file documented as of this encounter Visit Diagnoses Not on filedocumented in this encounter Care Teams Nicker Relationship Specialty Start Date End Date Caitie Godinez DO PCP - General Internal Medicine 12/01/14 11/23/21 [facility], Pcp PCP - General Internal Medicine 11/24/21 12/25/21 Mima Morley MD, MD PCP - General Internal Medicine 12/26/21 documented as of this encounter
--- OUTSIDE RECORDS SUMMARY | 2024-10-19 11:29 | XMS_ITS | Encounter Summary ---
Author Organization [facility] Address [address] [place] [address] Care Team Providers Care Die Cutting Machine Operator Name Role Phone Caitie Godinez DO Primary Care Pro vider Unavailable [facility], Pcp Primary Care Provider Mima Evangelista Md, MD Primary Care Provider Unavailable Encounter Details Date Type Department Care Team Description 09/29/2018 Scale Agent Report Medical Records [address] [place] [address] Faviola Abraham MD Social History Tobacco Use [...] on filedocumented in this encounter Care Teams Die Cutting Machine Operator Relationship Specialty Start Date End Date Caitie Godinez DO PCP - General Internal Medicine 12/01/14 11/23/21 Ann, Pcp PCP - General Internal Medicine 11/24/21 12/25/21 Mima Morley MD, MD PCP - General Internal Medicine 12/26/21 documented as of this encounter
--- OUTSIDE RECORDS SUMMARY | 2024-10-19 11:29 | XMS_ITS | Encounter Summary ---
Author Organization [facility] Address [address] [place] [address] Care Team Providers Care Mud Jack Nozzle Worker Name Role Phone Caitie Godinez DO Primary Care Pro vider Unavailable [facility], Pcp Primary Care Provider Mima Evangelista Md, MD Primary Care Provider Unavailable Encounter Details Date Type Department Care Team Description 05/15/2018 Client Hr Manager Report Medical Records [address] [place] [address] Faviola Abraham MD Social History Tobacco Use [...] on filedocumented in this encounter Care Teams Mud Jack Nozzle Worker Relationship Specialty Start Date End Date Caitie Godinez DO PCP - General Internal Medicine 12/01/14 11/23/21 Ann, Pcp PCP - General Internal Medicine 11/24/21 12/25/21 Mima Morley MD, MD PCP - General Internal Medicine 12/26/21 documented as of this encounter
--- OUTSIDE RECORDS SUMMARY | 2024-10-19 11:29 | XMS_ITS | Encounter Summary ---
Author Organization [facility] Address [address] [place] [address] Care Team Providers Care Life Insurance Sales Name Role Phone Caitie Godinez DO Primary Care Pro vider Unavailable [facility], Pcp Primary Care Provider Mima Evangelista Md, MD Primary Care Provider Unavailable Encounter Details Date Type Department Care Team Description 04/24/2021 Instructor Modeling Report Medical Records [address] [place] [address] Faviola Abraham MD Social History Tobacco Use [...] on filedocumented in this encounter Care Teams Life Insurance Sales Relationship Specialty Start Date End Date Caitie Godinez DO PCP - General Internal Medicine 12/01/14 11/23/21 Ann, Pcp PCP - General Internal Medicine 11/24/21 12/25/21 Mima Morley MD, MD PCP - General Internal Medicine 12/26/21 documented as of this encounter
--- OUTSIDE RECORDS SUMMARY | 2024-10-19 11:29 | XMS_ITS | Encounter Summary ---
Author Organization [facility] Address [address] [place] [address] Care Team Providers Care Retail Financial Analyst Name Role Phone Caitie Godinez DO Primary Care Pro vider Unavailable [facility], Pcp Primary Care Provider Mima Evangelista Md, MD Primary Care Provider Unavailable Encounter Details Date Type Department Care Team Description 04/05/2017 Release of Information Medical Records [address] [place] [id number] Abstract, Provider Social History Tobacco Use Types [...] on filedocumented in this encounter Care Teams Retail Financial Analyst Relationship Specialty Start Date End Date Caitie Godinez DO PCP - General Internal Medicine 12/01/14 11/23/21 Ann, Pcp PCP - General Internal Medicine 11/24/21 12/25/21 Mima Morley MD, MD PCP - General Internal Medicine 12/26/21 documented as of this encounter
--- OUTSIDE RECORDS SUMMARY | 2024-10-19 11:29 | XMS_ITS | Encounter Summary ---
Author Organization [facility] Address [address] [place] [address] Care Team Providers Care Tosser Name Role Phone Caitie Godinez DO Primary Care Pro vider Unavailable [facility], Pcp Primary Care Provider Mima Evangelista Md, MD Primary Care Provider Unavailable Encounter Details Date Type Department Care Team Description 04/12/2015 Release of Information Medical Records [address] [place] [id number] Abstract, Provider Social History Tobacco Use Types [...] on filedocumented in this encounter Care Teams Tosser Relationship Specialty Start Date End Date Caitie Godinez DO PCP - General Internal Medicine 12/01/14 11/23/21 Ann, Pcp PCP - General Internal Medicine 11/24/21 12/25/21 Mima Morley MD, MD PCP - General Internal Medicine 12/26/21 documented as of this encounter
--- OUTSIDE RECORDS SUMMARY | 2024-10-19 11:29 | XMS_ITS | Encounter Summary ---
Author Organization [facility] Address [address] [place] [address] Care Team Providers Care Cantilever Crane Operator Name Role Phone Caitie Godinez DO Primary Care Pro vider Unavailable Rosa Narvaez MD Primary Care Provider Unavailab le Caitie Godinez DO Primary Care Pro vider Unavailable Caitie Godinez DO Primary Care Pro vider Unavailable [facility], Pcp Primary Care Provider UnavailMima Izquierdo Md, MD Primary Care Provider Unavailable Reason for Visit * Reason Onset Date Comments Faxed Order 12/08/2013 Encounter Details Date Type Department Care Team Description 12/08/2013 Telephone Adult [address] [address] Caitie Godinez DO Faxed Order Social History [...] on filedocumented in this encounter Care Teams Cantilever Crane Operator Relationship Specialty Start Date End Date Caitie Godinez DO PCP - General Internal Medicine 10/19/13 06/07/14 Rosa Narvaez MD PCP - General Pediatrics 06/08/14 07/18/14 Caitie Godinez DO PCP - General Internal Medicine 07/19/14 11/30/14 Caitie Godinez DO PCP - General Internal Medicine 12/01/14 11/23/21 [facility], Pcp PCP - General Internal Medicine 11/24/21 12/25/21 Mima Morley MD, PCP - General Internal Medicine 12/26/21 documented as of this encounter
--- OUTSIDE RECORDS SUMMARY | 2024-10-19 11:29 | XMS_ITS | Encounter Summary ---
Author Organization [facility] Address [address] [place] [address] Care Team Providers Care Timekeeper Name Role Phone Mima Morley Md, MD Primary Care Provider Unavailable Encounter Details Date Type Department Care Team Description 01/12/2022 SCAN [facility] [facility] Medical [facility] [address] [address] Jeremias Gomes DPM [address] [address] Social History Tobacco Use Types Packs/Day Years Used Date Smoking Tobacco: Never Smokeless Tobacco: Never Alcohol Use Standard Drinks/Week Comments No 0 (1 standard drink = 0.6 oz pur e alcohol) Sex Assigned at Date Recorded Not on file Job Start Date Occupation Industry Not on file Not on file Not on file COVID-19 Exposure Response Date Recorded In the last 10 days, have yo u been in contact with someone who was confirmed or suspected to have Coronavirus/COVID-19? No / Unsure 12/27/2021 1:57 PM EDT documented as of this encounter Plan of Treatment Not on file documented as of this encounter Visit Diagnoses Not on filedocumented in this encounter Care Teams Timekeeper Relationship Specialty Start Date End Date Mima Morley MD, MD PCP - General Internal Medicine 12/26/21 documented as of this encounter
--- OUTSIDE RECORDS SUMMARY | 2024-10-19 11:29 | XMS_ITS | Encounter Summary ---
Author Organization [facility] Address [address] [place] [address] Care Team Providers Care Ob Gyn Physician Assistant Name Role Phone Caitie Godinez DO Primary Care Pro vider Unavailable [facility], Pcp Primary Care Provider Mima Evangelista Md, MD Primary Care Provider Unavailable Encounter Details Date Type Department Care Team Description 03/29/2015 Telephone Adult Medicine [address] [address] Caitie Godinez DO Social History Tobacco Use [...] I'm concerned about why she's needed this care home, has she been evaluated in past? If [...] vehicle accident? NO If yes, gather 3rd green party insurance information Date of accident/Injury: How long has patient had these symptoms?: TODAY PCP: Caitie Burgess Payor: [employer] FFS / Plan: [employer]F [employer]NER $15 / Product Type: [id number] documented in this encounter Plan of Treatment Not on file documented as of this encounter Visit Diagnoses Not on filedocumented in this encounter Care Teams Ob Gyn Physician Assistant Relationship Specialty Start Date End Date Caitie Godinez DO PCP - General Internal Medicine 12/01/14 11/23/21 [facility], Pcp PCP - General Internal Medicine 11/24/21 12/25/21 Mima Morley MD, MD PCP - General Internal Medicine 12/26/21 documented as of this encounter
== END 2024-10-19 12:20 | disposition home or self-care (01) ==
LOC: HO.HWS 10:52
PROVIDERS: PCP Internal Medicine; Visit Provider Advanced Practice Midwife
DX: Z30.42 Encounter for surveillance of injectable contraceptive (principal)

== ENCOUNTER → 2024-10-19 10:52 | Outpatient (BNVA) | payer OTHER, SELFPAY | PROVIDERS: PCP Internal Medicine; Visit Provider Advanced Practice Midwife | DX: Z30.42 Encounter for surveillance of injectable contraceptive (principal) | CPT/HCPCS: 96372; 99211; J1050 ==

== ENCOUNTER 2025-01-07 08:58 | Outpatient (AMB) | payer OTHER, SELFPAY ==
[2025-01-07 09:02] VITALS: BP 134/84; PULSE 106; BMI 29.7
--- NOTE | 2025-01-07 09:02 | A.OFFVIS_ITS ---
Vital Signs 01/07/25 09:02 Height 5 ft 6 in Weight 183 lb 13.848 oz BMI 29.7 BP 134/84 Blood Pressure Location Lt brachial Position Sitting Pulse 106 H Intake Visit Reasons: 3 months Gas Nausea Intake Note: Anju presents to in office 3 months follow up of nausea. CC: Patient c/o nausea, vomiting, diarrhea, heartburn, and acid reflux. 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 Teacher Required: No Accompanied by: staff from longterm Allergies No Known Allergies Allergy (Verified 01/07/25 09:08) HPI HPI 3 months Gas Nausea: Details: Assessment & Plan (1) Nausea and vomiting: Code(s): R11.2 - Nausea with vomiting, unspecified Category: Medical (2) Chronic GERD: Code(s): K21.9 - Gastro-esophageal reflux disease without esophagitis Category: Medical (3) Cognitive impairment: Code(s): R41.89 - Other symptoms and signs involving cognitive functions and awareness Category: Medical (4) Abdominal bloating: Code(s): R14.0 - Abdominal distension (gaseous) Category: Medical Plan She is here with a staff member who is supportive but does not know specifics about whether she has had improved sx or not. The pt is a poor historian and is vague. They admit she drinks a lot of soda and coffee and OJ. Because she is vague in her self reporting I do not know if medications have helped her. It appears that the pantoprazole was stopped after her endoscopy because of the negative findings. She does continue on famotidine. The only thing she does verbalize well as that she is having quite a lot of belching and gases. She is unclear as to whether she moves her bowels daily or has some constipation. I think I want to have her staff keep a log of her symptoms I day-to-day basis and bring it back to me since the patient is not good it self reporting. I will also give her a trial of simethicone. Return office visit in 3 months Medications: New simethicone (Gas Relief (simethicone)) 125 mg PO TID 90 tabs 6RF abdominal distention R14.0 - Abdominal distension (gaseous) Refilled famotidine 40 mg PO BEDTIME 90 tabs 2RF K21.9 - Gastro-esophageal reflux disease without esophagitis TODAYS VISIT She is here today with staff. The patient took a record on her cell phone of times she had upset stomach and what she ate. The common foods seem to be either lactose of higher fat/fried foods or a little of both. No GS. Get HIDA scan and start trial of creon and lactase 9000 u tid. Sx have improved on simethicone in terms of bloating. No recent vomiting. ROV 8 weeks to eval response to enzmes. [facility] Medical History Encounter for well woman exam with routine gynecological exam Surveillance for Depo-Provera contraception Abnormal findings on esophagogastroduodenoscopy (EGD) On depo medroxyprogesterone acetate for contraception (~05/04/24) Heartburn Chronic GERD History of vitamin D deficiency History of seizure disorder Cognitive developmental delay Environmental allergies Mild intermittent asthma in adult without complication Surgical History No pertinent past surgical history Family History Father No problems noted. Mother Diabetes mellitus HTN (hypertension) Substance use disorder Mental health disorder Maternal Aunt Substance use disorder Sister No problems noted. Maternal Grandmother Substance use disorder Social History Housing: House Housing Other:: Private home Alcohol intake: never Patient Tobacco Use Status: Never used Tobacco e-Cigarette/Vaping Use: Never Used service: No Current occupational status: employed Cognitive needs: No Hearing needs: No Vision needs: Yes Review of Systems Const Denies fatigue, Denies fever(s), Denies night sweats, Denies poor appetite and Denies weight loss ENT Reports Normal hearing present, Denies dental pain, Denies dysphagia, Denies hearing loss, Denies mouth pain, Denies odynophagia, Denies throat swelling, Denies tongue swelling and Reports other (Dentition adequate) Card Reports no additional complaints Resp Reports no additional complaints GI Details: Denies abdominal pain, Denies melena, Denies bloating, Denies hematochezia, Denies constipation, Denies GI cramping, Denies dysphagia, Denies excessive flatus, Denies early satiety, Reports dyspepsia, Reports heartburn, Reports diarrhea, Denies nausea, Denies odynophagia, Denies vomiting and Denies he matemesis Skin/Breast Denies pruritus, Denies lesions, Denies rash and Denies jaundice Neuro Reports Normal hearing present and Denies Abnormal speech present Endo Denies fatigue Aller/Immun Denies throat swelling and Denies tongue swelling Physical Exam Vital Signs: Last Vital Signs Pulse 106 H 01/07/25 09:02 BP 134/84 01/07/25 09:02 BMI result Body Mass Index 29.7 Const General: cooperative, no acute distress, well developed and well groomed Nutritional Appearance: well nourished and overweight Orientation/consciousness: oriented to person, oriented to place and oriented to time Limitations: No language barrier and other limitations HEENT Head: Yes normocephalic and Yes atraumatic Eyes General: appearance normal, both eyes and all related structures Pupils: Equal, round and reactive pupils present Neck Neck: Yes normal visual inspection and Yes no lymphadenopathy Thyroid: Thyroid normal Resp Effort & Inspection: normal respiratory effort and able to speak in complete sentences Auscultation: clear to auscultation bilaterally Cardio Rate: regular rate Rhythm: regular rhythm Heart sounds: Normal, physiologic split S2 sound present Peripheral pulses: radial pulses present and posterior tibial pulses present GI Inspection: No distended, No Abdominal panniculus present and Yes obesity Palpation (GI): Soft to palpation, nontender, no guarding, not rigid and No hepatosplenomegaly present Percussion: Yes normal to percussion Auscultation: normal bowel sounds Rectal Exam - Female: deferred Skin General skin exam: no rashes or lesions noted, turgor normal, skin not dry, no jaundice, No spider nevi and no striae Rashes: no rashes Nails: normal Neuro General: oriented to person, oriented to place and oriented to time Cranial nerves: Yes Equal, round and reactive pupils present and Yes Normal hearing present Speech: No Abnormal speech present Extrem General: Yes normal to inspection, No clubbing, No cyanosis and No edema Psych Appearance: grossly normal and well kempt Mental Status: other Speech and movement: Normal speech and movement present Affect: normal affect Attitude: cooperative Thought process: not confabulating and Impoverished thought process present Insight: Limited insight present (Psych) Judgement: Limited judgement present (Psych) Assessment & Plan Assessment & Plan (1) Nausea and vomiting: Code(s): R11.2 - Nausea with vomiting, unspecified Category: Medical (2) Chronic GERD: Code(s): K21.9 - Gastro-esophageal reflux disease without esophagitis Category: Medical (3) Abdominal bloating: Code(s): R14.0 - Abdominal distension (gaseous) Category: Medical (4) Cognitive impairment: Code(s): R41.89 - Other symptoms and signs involving cognitive functions and awareness Category: Medical (5) IBS (irritable bowel syndrome): Code(s): K58.9 - Irritable bowel syndrome, unspecified Category: Medical (6) Lactose intolerance: Code(s): E73.9 - Lactose intolerance, unspecified Category: Medical Plan She is here today with staff. The patient took a record on her cell phone of times she had upset stomach and what she ate. The common foods seem to be either lactose of higher fat/fried foods or a little of both. No GS. Get HIDA scan and start trial of creon and lactase 9000 u tid. Sx have improved on simethicone in terms of bloating. No recent vomiting. ROV 8 weeks to eval response to enzmes. Orders: Orders NM hepatobiliary w pharm Today K58.9 - Irritable bowel syndrome, unspecified Medications: New lactase administer with meals and/or snacks 9,000 units PO .tidac PRN 90 tabs 6RF lactose intolerance E73.9 - Lactose intolerance, unspecified, K58.9 - Irritable bowel syndrome, unspecified, R14.0 - Abdominal distension (gaseous) [id number] 24,000-76,000 -120,000 unit (Creon) 2 caps PO BID 120 caps 6RF 30 days K58.9 - Irritable bowel syndrome, unspecified Refilled simethicone (Gas Relief (simethicone)) 125 mg PO TID 90 tabs 6RF abdominal distention R14.0 - Abdominal distension (gaseous) Coding Level of Care Code Est Pt Level 3 (50587) Diagnoses Nausea and vomiting R11.2 Chronic GERD K21.9 Abdominal bloating R14.0 Cognitive impairment R41.89 IBS (irritable bowel syndrome) K58.9 Lactose intolerance E73.9
--- OUTSIDE RECORDS SUMMARY | 2025-01-07 09:19 | XMS_ITS | Clinical Summary ---
Author Organization [facility] Address [address] [place] [id number] Care Team Providers Care Trial Paralegal Name Role Phone Mima Morley MD Primary [...] 5 Years) and At-Risk Patients (6 to 49 Years) (1 of 2 - PCV) 2012 Cervical Cancer Screening: P ap Smear 2014 HIV Screening 05/06/2022 Hepatitis C Screening 05/06/2022 Social Influencers of Health Screening 05/06/2022 COVID-19 Vaccine (1 - 2023-2 5 season) 2024 Depression Screening 06/03/2024 DTaP,Tdap,and Td Vaccines (2 - Td or Tdap) 11/29/2024 11/29/2014 Influenza Vaccine (#1) 2025 03/06/2017 HIB Vaccines Aged Out No longer eligi [...] on File Type Date Recorded Patient Acetylene Torch Burner Expl anation Health Care Decision (hx) 04/22/2019 AD OMAR DIRECTIVE Care Teams Trial Paralegal Relationship Specialty Start Date End Date Mima Morley MD [address] [place] [address] PCP - General Internal Medicine 12/26/21
== END 2025-01-07 09:43 | disposition home or self-care (01) ==
LOC: HO.HGI 08:59
PROVIDERS: PCP Internal Medicine; Visit Provider Nurse Practitioner
DX: R11.2 Nausea with vomiting, unspecified (principal); K21.9 Gastro-esophageal reflux disease without esophagitis; R14.0 Abdominal distension (gaseous); R41.89 Other symptoms and signs involving cognitive functions and awareness; K58.9 Irritable bowel syndrome, unspecified; E73.9 Lactose intolerance, unspecified
CPT/HCPCS: 99213

== ENCOUNTER → 2025-01-07 08:58 | Outpatient (BNVA) | payer OTHER, SELFPAY | PROVIDERS: PCP Internal Medicine; Visit Provider Nurse Practitioner | DX: K21.9 Gastro-esophageal reflux disease without esophagitis (principal); R11.2 Nausea with vomiting, unspecified; R14.0 Abdominal distension (gaseous); R41.89 Other symptoms and signs involving cognitive functions and awareness; K58.9 Irritable bowel syndrome, unspecified; E73.9 Lactose intolerance, unspecified; Z30.013 Encounter for initial prescription of injectable contraceptive | CPT/HCPCS: 96372; 99211; 99212; J1050 ==

== ENCOUNTER 2025-01-07 09:55 | Outpatient (AMB) | payer OTHER, SELFPAY ==
--- NOTE | 2025-01-07 10:15 | AM.OFFVISNUR ---
Vital Signs 01/07/25 10:36 Height 5 ft 6 in Weight 180 lb BMI 29.0 Intake Visit Reasons: DEPO Allergies No Known Allergies Allergy (Verified 01/07/25 09:08) Nursing Note Patient here at scheduled time for depo provera injection. Had no complaints today. Scheduled next depo injection in 12 weeks. Office Procedures Depo Questionnaire If YES to any of the following questions, please consult a provider. Date of last injection: 10/19/24 Date of last gynecology exam: 09/01/24 Menstrual pattern since last injection has been: Not Applicable Irregular bleeding?: No Breast lumps or other breast changes?: No Changes in weight or appetite?: No Depression or changes in mood?: No Abnormal hair growth or loss?: No Skin problems (rash, acne, discoloration)?: No Pain at the injection site?: No Headaches?: No Nervousness?: No Abdominal pain or cramping?: No Dizziness or nausea?: No Fatigue or weakness?: No Decrease in sexual drive?: No Chest pain or shortness of breath?: No Swelling in arms or legs?: No Any other problems or concerns?: no concerns Form completed by?: Jen Velarde LPN Office Meds Depo-Provera 150 mg/mL intramuscular syringe Performing Provider: Lidia Brice CNM Performing Location: [facility] Administered by: Jen Velarde LPN on 01/07/25 10:30 Dose Route Admin Location Dispensed Lot Number Expiration Date [facility] [place] Fagoting Machine Operator 150 mg IM left Deltoid 1 mL [id number] 09/30/25 54377-309-20 MYLAN Total Dispensed Waste 1 mL 0 % Assessment & Plan Assessment & Plan Orders: Orders AMB Medroxyprogesterone Injection Patient Supplied Today Z30.42 - Encounter for surveillance of injectable contraceptive Coding Level of Care Code Established Pt Est Pt Level 1 (79182) Patient Type Established History Problem Focused Exam Problem Focused Medical Decision Making Straight Forward Time Spent (min) 20
--- OUTSIDE RECORDS SUMMARY | 2025-01-07 10:23 | XMS_ITS | Encounter Summary ---
Author Organization [facility] Address [address] [place] [address] Care Team Providers Care Corn Chip Maker Name Role Phone Caitie Godinez DO Primary Care Pro vider Unavailable [facility]ly [facility], Pcp Primary Care Provider Mima Evangelista Md, MD Primary Care Provider Unavailable Encounter Details Date Type Department Care Team Description 06/22/2019 Engraver Jewelry Report Medical Records [address] [place] [address] Faviola Abraham MD Social History Tobacco Use [...] on filedocumented in this encounter Care Teams Corn Chip Maker Relationship Specialty Start Date End Date Caitie Godinez DO PCP - General Internal Medicine 12/01/14 11/23/21 Ann, Pcp PCP - General Internal Medicine 11/24/21 12/25/21 Mima Morley MD, MD PCP - General Internal Medicine 12/26/21 documented as of this encounter
[2025-01-07 10:36] VITALS: BMI 29.0
== END 2025-01-07 10:21 | disposition home or self-care (01) ==
LOC: HO.HWS 09:56
PROVIDERS: PCP Internal Medicine; Visit Provider Advanced Practice Midwife
DX: Z30.42 Encounter for surveillance of injectable contraceptive (principal)

== ENCOUNTER → 2025-01-25 10:42 | Outpatient (REF) | payer OTHER, SELFPAY ==
--- NOTE | ~2025-01-25 | NM_ITS ---
EXAMINATION: NM HEPATOBILIARY WITH PHARM HISTORY: K58.9 - Irritable bowel syndrome, unspecified. TECHNIQUE: An hepatobiliary scan was performed following the intravenous administration of 5.0 mCi technetium 99m-mebrofenin. Sequential images were obtained over 90 minutes. Subsequently, the patient received 1.6 microgram of IV CCK over 30 minutes and additional imaging was performed. COMPARISON: Correlation is made with an abdominal ultrasound dated 05/11/2024. FINDINGS: There is normal uptake and excretion of the radiopharmaceutical by the liver. Gallbladder activity is noted at 65 minutes. Common bile duct activity is seen at 12 minutes. Small bowel activity is noted at 18 minutes. After the administration of intravenous CCK, the estimated gallbladder ejection fraction is 54%, which is within normal limits (normal 35-80%). NM/NM hepatobiliary w pharm IMPRESSION: Normal hepatobiliary scan with normal gallbladder ejection fraction. Electronically signed by: Peewee Alanis MD 01/25/2025 02:01 PM EDT
--- OUTSIDE RECORDS SUMMARY | 2025-01-25 11:56 | XMS_ITS | Clinical Summary ---
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
== END ==
LOC: HO.NUCMED 10:42
PROVIDERS: PCP Internal Medicine; Visit Provider Nurse Practitioner
DX: K58.9 Irritable bowel syndrome, unspecified (principal)
CPT/HCPCS: 78227; A9537; J2805

== ENCOUNTER → 2025-01-25 10:50 | Outpatient (BNV) | payer OTHER, SELFPAY | PROVIDERS: PCP Internal Medicine; Visit Provider Radiology Diagnostic Radiology | DX: K58.9 Irritable bowel syndrome, unspecified (principal) | CPT/HCPCS: 78227 ==

== ENCOUNTER 2025-03-11 10:22 | Outpatient (AMB) | payer OTHER, SELFPAY ==
--- NOTE | 2025-03-11 10:24 | A.OFFVIS_ITS ---
Vital Signs 03/11/25 10:31 Height 5 ft 6 in Weight 187 lb BMI 30.2 BP 130/82 Blood Pressure Location Rt brachial Position Sitting Pulse 98 Pulse Source Pulse Oximeter Pulse Oximetry (%) 97 Oxygen Delivery Method Room Air Intake Visit Reasons: bloating/IBS Intake Note: Est pt for mgmt of IBS. CC: C.O. post prandial N+V, GERD persistence despite current therapies. Pt denies any abd pain or BM irregularities. No additional sx or concerns per pt. 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 Accompanied by: Clinical Trial Assistant Allergies No Known Allergies Allergy (Verified 04/22/25 12:55) HPI HPI bloating/IBS: Details: Assessment & Plan (1) Nausea and vomiting: Code(s): R11.2 - Nausea with vomiting, unspecified Category: Medical (2) Chronic GERD: Code(s): K21.9 - Gastro-esophageal reflux disease without esophagitis Category: Medical (3) Abdominal bloating: Code(s): R14.0 - Abdominal distension (gaseous) Category: Medical (4) Cognitive impairment: Code(s): R41.89 - Other symptoms and signs involving cognitive functions and awareness Category: Medical (5) IBS (irritable bowel syndrome): Code(s): K58.9 - Irritable bowel syndrome, unspecified Category: Medical (6) Lactose intolerance: Code(s): E73.9 - Lactose intolerance, unspecified Category: Medical Plan She is here today with staff. The patient took a record on her cell phone of times she had upset stomach and what she ate. The common foods seem to be either lactose of higher fat/fried foods or a little of both. No GS. Get HIDA scan and start trial of creon and lactase 9000 u tid. Sx have improved on simethicone in terms of bloating. No recent vomiting. ROV 8 weeks to eval response to enzmes. Orders: Orders NM hepatobiliary w pharm Today K58.9 - Irritable bowel syndrome, unspecified Medications: New lactase administer with meals and/or snacks 9,000 units PO .tidac PRN 90 tabs 6RF lactose intolerance E73.9 - Lactose intolerance, unspecified, K58.9 - Irritable bowel syndrome, unspecified, R14.0 - Abdominal distension (gaseous) [id number] 24,000-76,000 -120,000 unit (Creon) 2 caps PO BID 120 caps 6RF 30 days K58.9 - Irritable bowel syndrome, unspecified Refilled simethicone (Gas Relief (simethicone)) 125 mg PO TID 90 tabs 6RF abdominal distention R14.0 - Abdominal distension (gaseous) HIDA SCAN 01/25/2025 IMPRESSION: Normal hepatobiliary scan with normal gallbladder ejection fraction. TODAY'S VISIT PENDING SALE TO [facility] Medical History (Updated 04/01/25 @ 11:41 by Lidia Brice CNM) Encounter for well woman exam with routine gynecological exam Abnormal findings on esophagogastroduodenoscopy (EGD) Heartburn Chronic GERD History of vitamin D deficiency History of seizure disorder Cognitive developmental delay Environmental allergies Mild intermittent asthma in adult without complication Surgical History No pertinent past surgical history Family History Father No problems noted. Mother Diabetes mellitus HTN (hypertension) Substance use disorder Mental health disorder Maternal Aunt Substance use disorder Sister No problems noted. Maternal Grandmother Substance use disorder Social History Housing: House Housing Other:: Private home Alcohol intake: never Patient Tobacco Use Status: Never used Tobacco e-Cigarette/Vaping Use: Never Used service: No Current occupational status: employed Cognitive needs: No Hearing needs: No Vision needs: Yes Review of Systems Const Denies fatigue, Denies fever(s), Denies night sweats, Denies poor appetite and Denies weight loss Eyes Reports seeing flashes ENT Reports Normal hearing present, Denies dental pain, Denies dysphagia, Denies hearing loss, Denies mouth pain, Denies odynophagia, Denies throat swelling, Denies tongue swelling and Reports other (Dentition adequate) Card Reports no additional complaints Resp Reports no additional complaints GI Details: Denies abdominal pain, Denies melena, Denies bloating, Denies hematochezia, Denies constipation, Denies GI cramping, Denies dysphagia, Denies excessive flatus, Denies early satiety, Reports heartburn, Denies diarrhea, Reports nausea, Denies odynophagia, Denies vomiting and Denies hematemesis Skin/Breast Denies pruritus, Denies lesions, Denies rash and Denies jaundice Neuro Reports Normal hearing present and Denies Abnormal speech present Endo Denies fatigue Aller/Immun Denies throat swelling and Denies tongue swelling Physical Exam Vital Signs: Last Vital Signs Pulse 98 03/11/25 10:31 BP 130/82 03/11/25 10:31 Pulse Ox 97 03/11/25 10:31 Oxygen Delivery Method Room Air 03/11/25 10:31 BMI result Body Mass Index 30.2 Const General: cooperative, no acute distress, well developed and well groomed Nutritional Appearance: well nourished and obese Orientation/consciousness: oriented to person, oriented to place and oriented to time Limitations: No language barrier and other limitations HEENT Head: Yes normocephalic and Yes atraumatic Eyes General: appearance normal, both eyes and all related structures Pupils: Equal, round and reactive pupils present Neck Neck: Yes normal visual inspection and Yes no lymphadenopathy Thyroid: Thyroid normal Resp Effort & Inspection: normal respiratory effort and able to speak in complete sentences Auscultation: clear to auscultation bilaterally Cardio Rate: regular rate Rhythm: regular rhythm Heart sounds: Normal, physiologic split S2 sound present Peripheral pulses: radial pulses present and posterior tibial pulses present GI Inspection: No distended, Yes Abdominal panniculus present and Yes obesity Palpation (GI): Soft to palpation, nontender, no guarding, not rigid and No hepatosplenomegaly present Percussion: Yes normal to percussion Auscultation: normal bowel sounds Rectal Exam - Female: deferred Skin General skin exam: no rashes or lesions noted, turgor normal, skin not dry, no jaundice, No spider nevi and no striae Rashes: no rashes Nails: normal Neuro General: oriented to person, oriented to place and oriented to time Cranial nerves: Yes Equal, round and reactive pupils present and Yes Normal hearing present Speech: No Abnormal speech present Extrem General: Yes normal to inspection, No clubbing, No cyanosis and No edema Psych Appearance: grossly normal and well kempt Mental Status: other Speech and movement: Normal speech and movement present Affect: normal affect Attitude: cooperative Thought process: not confabulating and Impoverished thought process present Thought content: Normal thought content present Insight: Limited insight present (Psych) Judgement: Limited judgement present (Psych) Assessment & Plan Assessment & Plan (1) Abdominal bloating: Comment: NO GALLSTONES AND NEGATIVE HIDA SCAN Code(s): R14.0 - Abdominal distension (gaseous) Category: Medical (2) Lactose intolerance: Code(s): E73.9 - Lactose intolerance, unspecified Category: Medical (3) Nausea and vomiting: Code(s): R11.2 - Nausea with vomiting, unspecified Category: Medical (4) Chronic GERD: Code(s): K21.9 - Gastro-esophageal reflux disease without esophagitis Category: Medical (5) Cognitive impairment: Code(s): R41.89 - Other symptoms and signs involving cognitive functions and awareness Category: Medical Plan - The patient is a 30-year-old female presenting with gastrointestinal symptoms including heartburn and nausea. - Her symptoms of heartburn have been associated with the intake of foods high in fat. - She experiences nausea predominantly in the afternoons after her nap and reports bloating daily after breakfast. - The patient's nausea is not accompanied by vomiting, and she reports being car sick which is exacerbated when using electronic devices during travel. - Her gastrointestinal symptoms subside during weekends without program-related activities. - Medications taken include simethicone, pancrelipase, and famotidine at bedtime; however, they have not effectively alleviated the heartburn. - Presence of abiotic symptoms such as vision 'sparkles' suggest neurological assessment. The patient's diet reportedly includes high-fat foods such as macaroni and cheese, ice cream cake, Colombian fries, and hot dogs, which exacerbate her symptoms of heartburn. Her breakfast typically consists of frozen waffles or Colombian toast, sometimes with turkey sausage. Snacks often include baked chips, pretzels, and grapes. She has a preference for sweet desserts, regularly consuming ice cream or pudding cups in the evening. Attempts have been made previously to utilize healthier snack options, such as baked potato chips. The patient has trialed digestive enzyme supplementation with pancrelipase (Creon). - Stop taking Creon for now; resume only if instructed. - Take famotidine in the afternoon in addition to at bedtime. - Eat fewer high-fat foods like ice cream and fried items. - Avoid using your phone or reading in the car to prevent feeling sick. - Track any changes in symptoms and note them. - Follow up in six weeks or sooner if symptoms worsen. Medications: Changed From famotidine 40 mg PO BEDTIME 90 tabs 2RF K21.9 - Gastro-esophageal reflux disease without esophagitis To famotidine 40 mg orally QHS AND Q AFTER NOON; 180 tabs 2RF K21.9 - Gastro- esophageal reflux disease without esophagitis On Hold [id number] 24,000-76,000 -120,000 unit (Creon) Hold Comment: Doctor's Order 2 caps PO BID 30 days 120 caps 6RF K58.9 - Irritable bowel syndrome, unspecified Coding Level of Care Code Est Pt Level 3 (26392) Diagnoses Abdominal bloating R14.0 Lactose intolerance E73.9 Nausea and vomiting R11.2 Chronic GERD K21.9 Cognitive impairment R41.89
[2025-03-11 10:31] VITALS: BP 130/82; PULSE 98; O2SAT 97; BMI 30.2
== END 2025-03-11 11:10 | disposition home or self-care (01) ==
LOC: HO.HGI 10:23
PROVIDERS: PCP Internal Medicine; Visit Provider Nurse Practitioner
DX: R14.0 Abdominal distension (gaseous) (principal); E73.9 Lactose intolerance, unspecified; R11.2 Nausea with vomiting, unspecified; K21.9 Gastro-esophageal reflux disease without esophagitis; R41.89 Other symptoms and signs involving cognitive functions and awareness
CPT/HCPCS: 99213

== ENCOUNTER → 2025-03-11 10:22 | Outpatient (BNVA) | payer OTHER, SELFPAY | PROVIDERS: PCP Internal Medicine; Visit Provider Nurse Practitioner | DX: R41.89 Other symptoms and signs involving cognitive functions and awareness (principal); R14.0 Abdominal distension (gaseous); K21.9 Gastro-esophageal reflux disease without esophagitis; E73.9 Lactose intolerance, unspecified; R11.2 Nausea with vomiting, unspecified | CPT/HCPCS: 99212 ==

== ENCOUNTER 2025-04-01 10:59 | Outpatient (AMB) | payer OTHER, SELFPAY ==
--- NOTE | 2025-04-01 11:15 | MHC.OFFVIS ---
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 She is requesting to change her control for a cycle suppression, prefers not to have her menstruation, bleeding or pain. Long-term Depo-Provera use in his concerned about recent information on the Internet regarding complications with Depo-Provera use and brain tumor. She preferred to start the control pill, not comfortable with anything inserted. She denies any contraindications to control such as: migraines with aura, history of DVT or pulmonary emboli, high blood pressure, liver disease, thrombolic disorders, Lupus, +LIN, breast cancer, or smoking. Never sexually active. [facility] Medical History (Updated 04/01/25 @ 11:41 by Lidia Brice CNM) Encounter for well woman exam with routine gynecological exam Abnormal findings on esophagogastroduodenoscopy (EGD) Heartburn Chronic GERD History of vitamin D deficiency History of seizure disorder Cognitive developmental delay Environmental allergies Mild intermittent asthma in adult without complication Surgical History No pertinent past surgical history Family History Father No problems noted. Mother Diabetes mellitus HTN (hypertension) Substance use disorder Mental health disorder Maternal Aunt Substance use disorder Sister No problems noted. Maternal Grandmother Substance use disorder Social History Housing: House Housing Other:: Private home Alcohol intake: never Patient Tobacco Use Status: Never used Tobacco e-Cigarette/Vaping Use: Never Used service: No Current occupational status: employed Cognitive needs: No Hearing needs: No Vision needs: Yes Review of Systems Const All systems reviewed & are unremarkable except as noted in HPI and below Reports as per HPI Eyes Reports no additional complaints ENT Reports no additional complaints Card Reports no additional complaints Resp Reports no additional complaints GI Reports as per HPI and Reports no additional complaints Reports as per HPI Musc Reports no additional complaints Skin/Breast Reports as per HPI Neuro Reports no additional complaints Psych Reports no additional complaints Endo Reports no additional complaints Moncho/Lymph Reports no additional complaints Aller/Immun Reports no additional complaints Physical Exam Vital Signs: Last Vital Signs BP 120/78 04/01/25 11:21 Const General: cooperative, healthy appearing, no acute distress, well developed and alert GI Palpation (GI): Soft to palpation Rectal Exam - Female: deferred External Female Exam: normal external appearance and normal appearance of the urethra Speculum Exam - Vagina: normal appearance of the vagina, normal palpation and normal vaginal discharge Speculum Exam - Cervix: normal appearance of the cervix and normal palpation Bimanual exam- vagina & uterus: normal bimanual exam, normal palpation, uterine size normal, normal palpation and non-tender Bimanual Exam- Adnexa, other: no masses Assessment & Plan Assessment & Plan (1) Counseling for initiation of control method: Code(s): Z30.09 - Encounter for other general counseling and advice on contraception Plan Control Counseling Use and side effects of control: Instructed to start the pill on Saturday. Recommended to take pill at same time every day and with food to prevent stomach upset. Switch to bedtime intake with food if still experiencing nausea. Consider setting the cell phone for alerts as a reminder to take the pill at the same time. If any late or missed doses, take the dose as soon as possible, and take your regular pill on time. Instructed patient to take for at least 3 months the body is acclimated to it. Most side effects go away with time in the first three months. Warnings: go to ED if and loss of vision/blindness, severe headache, chest pain or difficulty breathing, severe abdominal pain, or any pain or swelling in an extremity. Return in 3 months for pill check, or sooner if any concerns. All of her questions and concerns were addressed to the best of my ability and shared decision making. She is agreeable to plan of care. Medications: New levonorgestrel-ethinyl estrad 0.15 mg-30 mcg (91) (Jolessa) 1 tab PO DAILY 91 ea 0RF Discontinued Depo-Provera (medroxyprogesterone) Discontinued Reason: Order 150 mg IM ONCE 1 mL 0RF NS Z30.42 - Encounter for surveillance of injectable contraceptive medroxyprogesterone Discontinued Reason: No Longer Medically Relevant 150 mg IM [id number] 1 mL 0RF Coding Level of Care Code Est Pt Level 3 (05987) Diagnoses Counseling for initiation of control method Z30.09
[2025-04-01 11:21] VITALS: BP 120/78
--- OUTSIDE RECORDS SUMMARY | 2025-04-01 13:44 | XMS_ITS | Clinical Summary ---
Author Organization [facility] Address [address] [place] [phone] Care Team Providers Care Truck Hop Name Role Phone Mima Morley MD Primary [...] Cervical Cancer Screening: P ap Smear 2014 HPV Vaccines (1 - 3-dose SCD M series) 2020 HIV Screening 05/06/2022 Hepatitis C Screening 05/06/2022 Social Influencers of Health Screening 05/06/2022 Depression Screening 06/03/2024 DTaP,Tdap,and Td Vaccines (2 - Td or Tdap) 11/29/2024 11/29/2014 COVID-19 Vaccine (1 - 2023-2 5 season) 2025 Influenza Vaccine (#1) 2025 03/06/2017 RSV Immunization Adult Patie nts (1 - 1-dose 75+ series) 2068 HIB Vaccines Aged Out No longer eligi [...] Documents on File Type Date Recorded Patient Scalp Specialist Expl anation Health Care Decision (hx) 04/22/2019 CHIKI NELSON DIRECTIVE Care Teams Truck Hop Relationship Specialty Start Date End Date Mima Morley MD [address] [place] [address] PCP - General Internal Medicine 12/26/21
== END 2025-04-01 11:49 | disposition home or self-care (01) ==
LOC: HO.HWS 10:59
PROVIDERS: PCP Internal Medicine; Visit Provider Advanced Practice Midwife
DX: Z30.09 Encounter for other general counseling and advice on contraception (principal)
CPT/HCPCS: 99213

== ENCOUNTER → 2025-04-01 10:59 | Outpatient (BNVA) | payer OTHER, SELFPAY | PROVIDERS: PCP Internal Medicine; Visit Provider Advanced Practice Midwife | DX: Z30.09 Encounter for other general counseling and advice on contraception (principal) | CPT/HCPCS: 99212 ==

== ENCOUNTER 2025-04-22 12:53 | Outpatient (AMB) | payer OTHER, SELFPAY ==
--- NOTE | 2025-04-22 12:56 | A.OFFVIS_ITS ---
Vital Signs 04/22/25 12:57 Height 5 ft 6 in Weight 189 lb BMI 30.5 BP 130/74 Blood Pressure Location Lt brachial Position Sitting Pulse 90 Intake Visit Reasons: bloating/IBS Intake Note: Patient follow up for IBS/Bloating Patient cc: acid reflux on and off. Denies any other GI issues. 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 by: Self / Same As Patient Allergies No Known Allergies Allergy (Verified 04/22/25 12:55) HPI HPI bloating/IBS: Details: Assessment & Plan (1) Abdominal bloating: Comment: NO GALLSTONES AND NEGATIVE HIDA SCAN Code(s): R14.0 - Abdominal distension (gaseous) Category: Medical (2) Lactose intolerance: Code(s): E73.9 - Lactose intolerance, unspecified Category: Medical (3) Nausea and vomiting: Code(s): R11.2 - Nausea with vomiting, unspecified Category: Medical (4) Chronic GERD: Code(s): K21.9 - Gastro-esophageal reflux disease without esophagitis Category: Medical (5) Cognitive impairment: Code(s): R41.89 - Other symptoms and signs involving cognitive functions and awareness Category: Medical Medications: Changed From famotidine 40 mg PO BEDTIME 90 tabs 2RF K21.9 - Gastro-esophageal reflux disease without esophagitis To famotidine 40 mg orally QHS AND Q AFTER NOON; 180 tabs 2RF K21.9 - Gastro- esophageal reflux disease without esophagitis On Hold [id number] 24,000-76,000 -120,000 unit (Creon) Hold Comment: Doctor's Order 2 caps PO BID 30 days 120 caps 6RF K58.9 - Irritable bowel syndrome, unspecified [facility] VISIT [facility], [facility] Medical History (Updated 04/01/25 @ 11:41 by Lidia Brice CNM) Encounter for well woman exam with routine gynecological exam Abnormal findings on esophagogastroduodenoscopy (EGD) Heartburn Chronic GERD History of vitamin D deficiency History of seizure disorder Cognitive developmental delay Environmental allergies Mild intermittent asthma in adult without complication Surgical History No pertinent past surgical history Family History Father No problems noted. Mother Diabetes mellitus HTN (hypertension) Substance use disorder Mental health disorder Maternal Aunt Substance use disorder Sister No problems noted. Maternal Grandmother Substance use disorder Social History Housing: House Housing Other:: Private home Alcohol intake: never Patient Tobacco Use Status: Never used Tobacco e-Cigarette/Vaping Use: Never Used service: No Current occupational status: employed Cognitive needs: No Hearing needs: No Vision needs: Yes Review of Systems Const Denies fatigue, Denies fever(s), Denies night sweats, Denies poor appetite and Denies weight loss ENT Reports Normal hearing present, Denies dental pain, Denies dysphagia, Denies hearing loss, Denies mouth pain, Denies odynophagia, Denies throat swelling, Denies tongue swelling and Reports other (Dentition adequate) Card Reports no additional complaints Resp Reports no additional complaints GI Details: Denies abdominal pain, Denies melena, Denies bloating, Denies hematochezia, Denies constipation, Denies GI cramping, Denies dysphagia, Denies excessive flatus, Denies early satiety, Denies heartburn, Denies diarrhea, Reports nausea, Denies odynophagia, Denies vomiting and Denies hematemesis Skin/Breast Denies pruritus, Denies lesions, Denies rash and Denies jaundice Neuro Reports Normal hearing present and Denies Abnormal speech present Endo Denies fatigue Aller/Immun Denies throat swelling and Denies tongue swelling Physical Exam Vital Signs: Last Vital Signs Pulse 90 04/22/25 12:57 BP 130/74 04/22/25 12:57 BMI result Body Mass Index 30.5 Const General: cooperative, no acute distress, well developed and well groomed Nutritional Appearance: well nourished and obese Orientation/consciousness: oriented to person, oriented to place and oriented to time Limitations: behavioral limitations, No language barrier and other limitations HEENT Head: Yes normocephalic and Yes atraumatic Eyes General: appearance normal, both eyes and all related structures Pupils: Equal, round and reactive pupils present Neck Neck: Yes normal visual inspection and Yes no lymphadenopathy Thyroid: Thyroid normal Resp Effort & Inspection: normal respiratory effort and able to speak in complete sentences Auscultation: clear to auscultation bilaterally Cardio Rate: regular rate Rhythm: regular rhythm Heart sounds: Normal, physiologic split S2 sound present Peripheral pulses: radial pulses present and posterior tibial pulses present GI Inspection: No distended, No Abdominal panniculus present and Yes obesity Palpation (GI): Soft to palpation, nontender, no guarding, not rigid and No hepatosplenomegaly present Percussion: Yes normal to percussion Auscultation: normal bowel sounds Rectal Exam - Female: deferred Skin General skin exam: no rashes or lesions noted, turgor normal, skin not dry, no jaundice, No spider nevi and no striae Rashes: no rashes Nails: normal Neuro General: oriented to person, oriented to place and oriented to time Cranial nerves: Yes Equal, round and reactive pupils present and Yes Normal hearing present Speech: No Abnormal speech present Extrem General: Yes normal to inspection, No clubbing, No cyanosis and No edema Psych Appearance: grossly normal and well kempt Mental Status: mental status grossly normal Speech and movement: Normal speech and movement present Affect: normal affect Attitude: cooperative Thought process: Normal thought process present and not confabulating Thought content: Normal thought content present Insight: Limited insight present (Psych) Judgement: Limited judgement present (Psych) Assessment & Plan Assessment & Plan (1) Nausea and vomiting: Code(s): R11.2 - Nausea with vomiting, unspecified Category: Medical (2) Chronic GERD: Code(s): K21.9 - Gastro-esophageal reflux disease without esophagitis Category: Medical (3) IBS (irritable bowel syndrome): Code(s): K58.9 - Irritable bowel syndrome, unspecified Category: Medical (4) Lactose intolerance: Code(s): E73.9 - Lactose intolerance, unspecified Category: Medical Plan Subjective Patient seen in follow-up for gastrointestinal symptoms. Since last visit, we discontinued Creon as it was not helping and increased famotidine to twice daily; patient reports she is doing well on this regimen. Caregiver reports nausea occurs approximately once to twice per week. Motion-related nausea when riding in the van is being managed with Sea-Bands. Caregiver switched to Lactaid milk, which seems to improve symptoms. Dietary review from symptom journal notes frequent high-fat foods (mozzarella sticks, kyrgyz fries, Armenian toast with sausage, Rahul). Discussed moderation with pizza and strategies to minimize fat/grease; patient asked about white vs. red sauce, and we reviewed that many white sauces are higher in fat compared to some tomato-based sauces and to compare fat grams on labels. Objective Assessment & Plan Nausea and dyspeptic symptoms: Symptoms overall improved on famotidine twice daily and with use of Lactaid milk; residual episodes approximately 1?2 times per week. Motion-related component when riding in a van appears responsive to Sea-[employer]ands. Dietary fat appears to exacerbate symptoms. - Continue famotidine twice daily as currently tolerated. - Continue Lactaid milk as it appears beneficial. - Continue Sea-Bands for motion-related nausea when riding in the van. - Dietary counseling provided: limit high-fat foods; choose lower-fat cheeses and minimize added oils; pizza permissible in limited quantities with attention to lower-fat preparation; consider tomato-based sauce if lower in fat than white sauces; review nutrition labels and select lower fat options. - Follow up in 6 months, sooner if symptoms worsen or new concerns arise. Coding Level of Care Code Est Pt Level 3 (54148) Diagnoses Nausea and vomiting R11.2 Chronic GERD K21.9 IBS (irritable bowel syndrome) K58.9 Lactose intolerance E73.9
[2025-04-22 12:57] VITALS: BP 130/74; PULSE 90; BMI 30.5
== END 2025-04-22 13:39 | disposition home or self-care (01) ==
LOC: HO.HGI 12:54
PROVIDERS: PCP Internal Medicine; Visit Provider Nurse Practitioner
DX: R11.2 Nausea with vomiting, unspecified (principal); K21.9 Gastro-esophageal reflux disease without esophagitis; K58.9 Irritable bowel syndrome, unspecified; E73.9 Lactose intolerance, unspecified
CPT/HCPCS: 99213

== ENCOUNTER → 2025-04-22 12:53 | Outpatient (BNVA) | payer OTHER, SELFPAY | PROVIDERS: PCP Internal Medicine; Visit Provider Nurse Practitioner | DX: K21.9 Gastro-esophageal reflux disease without esophagitis (principal); R11.2 Nausea with vomiting, unspecified; K58.9 Irritable bowel syndrome, unspecified; E73.9 Lactose intolerance, unspecified | CPT/HCPCS: 99212 ==